=== PATIENT | male | born 1940 | race Two or more races ===

== ENCOUNTER 2017-11-15 12:01 | Day surgery (SDC) | payer MEDICARE ==
[2017-11-13 14:41] VITALS: BMI 31.4
[2017-11-15 12:23] LABS: BASO # 0.02 K/mm3 (0.0-2.0); BASO % 0.3 % (0.0-3.0); EOS # 0.2 (0.0-0.7); EOS % 2.3 % (1.5-5.0); GRAN # 4.37 (1.4-6.5); GRAN % 61.5 % (50.0-68.0); HEMOGLOBIN 16.5 g/dL (14.0-18.0); LYMPH # 1.8 (1.2-3.4); LYMPH % 25.8 % (22.0-35.0); MEAN CELL VOLUME 91.7 fl (80.0-105.0); MEAN CORPUSCULAR HEMOGLOBIN 32.5 pg (25.0-35.0); MEAN CORPUSCULAR HGB CONC 35.4 g/dl (31.0-37.0); MEAN PLATELET VOLUME 9.7 fl (7.0-11.0); MONO # 0.7 (0.1-0.6); MONO % 10.1 % (1.0-6.0); RBC 5.08 10^6/uL (3.5-6.1); WHITE BLOOD COUNT 7.1 10^3/ul (4.5-11.0)
[2017-11-15 12:33] LABS: BLOOD UREA NITROGEN 22 mg/dL (7-21); CALCIUM 10.3 mg/dL (8.4-10.5); GFR AFRICAN-AMERICAN > 60; GFR NON-AFRICAN AMERICAN > 60
[2017-11-15 12:46] LABS: INR 1.14 (0.93-1.08); PARTIAL THROMBOPLASTIN TIME 29.5 Seconds (25.1-36.5); PROTHROMBIN TIME 13.2 SECONDS (9.4-12.5)
[2017-11-15] MEDS ORDERED: Midazolam 2 MG/2 ML VIAL ONE (14:31)
[2017-11-15] MEDS ORDERED: Lidocaine 1% Inj (20ml) ONE (14:32)
[2017-11-15] MEDS ORDERED: Oxycodone/Acetaminophen 5/325 mg Tab PO PRN (15:12)
[2017-11-15] MEDS ORDERED: Sodium Chloride 0.45% 1,000 ML IV SCH (15:15)
--- NOTE | 2017-11-15 15:30 | CT ---
PROCEDURE: CT guided liver biopsy. HISTORY: Hepatitis C. Hemochromatosis. Solitary 6 cm left liver mass. Evaluate for malignancy PHYSICIAN(S): Bernard Barron MD. TECHNIQUE: The relative risks and indications of the procedure were explained to the patient and consent obtained. The patient was placed supine on the CT scanner and preliminary images through the liver obtained. Conscious sedation and monitoring were provided throughout the procedure by a nurse. There is a well-circumscribed 6 cm mass in the lateral segment of the left liver.. A subxyphoid approach was selected and the area prepped and draped in the usual sterile fashion. 1% Xylocaine was used to anesthetize the skin and soft tissues. A 17-gauge guiding needle was advanced into the 6 cm left liver mass. Its position was confirmed with CT. Using coaxial technique, multiple core biopsies were obtained. The postprocedure images show no evidence of significant hemorrhage. IMPRESSION: 1. CT-guided liver biopsy as described above.
[2017-11-15 16:13] VITALS: PULSE 75; RESP 20; TEMP 97.3; O2SAT 93
[2017-11-15 17:31] VITALS: BP 112/73
== END 2017-11-15 17:45 | disposition home or self-care (01) ==
LOC: SDS 12:01
PROVIDERS: ATTEND Radiology Vascular & Interventional Radiology
DX: K74.60 Unspecified cirrhosis of liver (principal); B19.20 Unspecified viral hepatitis C without hepatic coma; E83.119 Hemochromatosis, unspecified; I10 Essential (primary) hypertension; I25.10 Atherosclerotic heart disease of native coronary artery without angina pectoris; I48.91 Unspecified atrial fibrillation; E11.9 Type 2 diabetes mellitus without complications
CPT/HCPCS: 36415; 47000; 77012; 80048; 85025; 85610; 85730; 88307; 99152; J2250; J2405; J3010; J7030

== ENCOUNTER 2018-04-21 13:19 | Inpatient (IN) | payer MEDICARE ==
[2018-03-31 10:05] VITALS: BMI 30.4
[2018-04-21 12:57] LABS: BASO # 0.02 K/mm3 (0.0-2.0); BASO % 0.2 % (0.0-3.0); EOS # 0.1 (0.0-0.7); EOS % 1.1 % (1.5-5.0); GRAN # 6.92 (1.4-6.5); GRAN % 78.4 % (50.0-68.0); HEMOGLOBIN 14.9 g/dL (14.0-18.0); LYMPH # 1.2 (1.2-3.4); LYMPH % 13.3 % (22.0-35.0); MEAN CELL VOLUME 91.6 fl (80.0-105.0); MEAN CORPUSCULAR HGB CONC 34.9 g/dl (31.0-37.0); MEAN PLATELET VOLUME 9.4 fl (7.0-11.0); MONO # 0.6 (0.1-0.6); RBC 4.66 10^6/uL (3.5-6.1); RED CELL DISTRIBUTION WIDTH 13.1 % (11.5-14.5); WHITE BLOOD COUNT 8.8 10^3/ul (4.5-11.0)
[2018-04-21 13:06] LABS: INR 1.37; PARTIAL THROMBOPLASTIN TIME 26.5 Seconds (25.1-36.5); PROTHROMBIN TIME 15.9 SECONDS (9.4-12.5)
[2018-04-21 13:13] LABS: BLOOD UREA NITROGEN 16 mg/dL (7-21); CALCIUM 9.9 mg/dL (8.4-10.5); GFR NON-AFRICAN AMERICAN > 60
[2018-04-21] MEDS ORDERED: Oxycodone/Acetaminophen 5/325 mg Tab PO STA (15:02)
[2018-04-21] MEDS ORDERED: Oxycodone/Acetaminophen 5/325 mg Tab ONE (15:06)
[2018-04-21] MEDS ORDERED: Lidocaine PF 2% (5 ml) Inj (For Cardiac Arrhy) ONE ×2 (15:29→15:55)
[2018-04-21] MEDS ORDERED: Vancomycin 500 mg (Oral/Rectal USE) ONE (15:30)
[2018-04-21] MEDS ORDERED: Midazolam 2 MG/2 ML VIAL ONE ×2 (15:49→16:27)
[2018-04-21] MEDS ORDERED: Oxycodone/Acetaminophen 5/325 mg Tab PO PRN (15:51)
--- NOTE | 2018-04-21 16:05 | CP.PCM.HP ---
History of Present Illness - History of Present Illness History of Present Illness: H&P for Dr. 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 Patient has never received chemo or radiation prior to this admission. Biopsy in March showed high grade neuroendocrine tumor. Currently, patient offers no complaints at this time. Patient denied CP, SOB, n/v/d, abdominal pain, fever, chills, CAH, or dizziness. 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, liver mass, CAD/HI s/p 5 stents, renal cyst, hepatitis C (treated 1997), abdominal hernia, TIA, HTN, HLD, a-fib on eliquis, BPH, and GERD Surg: port placement, liver and lymph node biopsy All: PCN SH: Former smoker, quit 40 yrs ago; Social EtOH use; Denied illicit drug use FHx: HI/CAD Present on Admission - Present on Admission Any Indicators Present on Admission: Yes Review of Systems - Review of Systems All systems: reviewed and no additional remarkable complaints except (12 point ROS reviewed and is negative other than what is stated in HPI.) Past Patient History - CARDIAC Hx Pacemaker: No - NEUROLOGICAL Hx Paralysis: No - HEMATOLOGICAL/ONCOLOGICAL Hx Blood Transfusions: No Hx Blood Transfusion Reaction: No - MUSCULOSKELETAL/RHEUMATOLOGICAL Hx Musculoskeletal Disorders: No - PSYCHIATRIC Hx Emotional Abuse: No Hx Physical Abuse: No Hx Substance Use: No - SURGICAL HISTORY Hx Surgeries: Yes - ANESTHESIA Hx Anesthesia Reactions: No Hx Malignant Hyperthermia: No Meds Allergies/Adverse Reactions: Allergies Allergy/AdvReac Type Severity Reaction Status Date / Time Penicillins Allergy Severe RASH Verified 03/31/18 10:05 Physical Exam - Constitutional Appears: No Acute Distress - Head Exam Head Exam: NORMAL INSPECTION - Eye Exam Eye Exam: Normal appearance Pupil Exam: NORMAL ACCOMODATION - ENT Exam ENT Exam: Normal Exam - Neck Exam Neck exam: Positive for: Normal Inspection - Respiratory Exam Respiratory Exam: Clear to Auscultation Bilateral. absent: Rales, Rhonchi, Wheezes - Cardiovascular Exam Cardiovascular Exam: RRR, +S1, +S2. absent: Diastolic murmur, Gallop, Rubs, Systolic Murmur Additional comments: port on right chest wall, bandages c/d/i, no signs of erythema or discharge - GI/Abdominal Exam GI & Abdominal Exam: Soft. absent: Distended, Guarding, Rebound, Tenderness - Extremities Exam Extremities exam: Positive for: normal inspection - Back Exam Back exam: NORMAL INSPECTION - Neurological Exam Neurological exam: Alert, Oriented x3 - Psychiatric Exam Psychiatric exam: Normal Affect, Normal Mood - Skin Skin Exam: Dry, Intact, Normal Color, Warm Results - Vital Signs Recent Vital Signs: Last Vital Signs Temp 98 F 04/21/18 13:00 Pulse 94 H 04/21/18 13:00 Resp 20 04/21/18 13:00 BP 125/73 04/21/18 13:00 Pulse Ox 98 04/21/18 13:00 - Labs Result Diagrams: 04/22/18 06:00 04/22/18 06:00 Labs: Laboratory Results - last 24 hr 04/21/18 04/21/18 04/21/18 12:40 12:40 12:40 WBC 8.8 RBC 4.66 Hgb 14.9 Hct 42.7 MCV 91.6 MCH 32.0 MCHC 34.9 RDW 13.1 Plt Count 187 MPV 9.4 Gran % 78.4 H Lymph % (Auto) 13.3 L [place] % (Auto) 7.0 H Eos % (Auto) 1.1 L Baso % (Auto) 0.2 Gran # 6.92 H Lymph # (Auto) 1.2 [place] # (Auto) 0.6 Eos # (Auto) 0.1 Baso # (Auto) 0.02 PT 15.9 H INR 1.37 APTT 26.5 Sodium 137 Potassium 4.2 Chloride 101 Carbon Dioxide 27 Anion Gap 13 BUN 16 Creatinine 0.9 Est GFR ( Amer) > 60 Est GFR (Non-Af Amer) > 60 Random Glucose 119 H Calcium 9.9 Assessment & Plan - Assessment and Plan (Free Text) Assessment: 77 M with PMH of 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 Plan: - Chemo regimen - Day 1: Carboplatin, Day 1, 2, 3: Etoposide; with IVF - Premedicate with Decadrone/benadryl/pepcid/zofran - Cont Eliqius for a-fib - Anti-hypertensives continued with holding parameters, SBP < 100 and/or HR < 60 - All other home medications reviewed and continued - GI consulted due to increased colon uptake on PET/CT - Nephro consulted to r/o tumor lysis syndrome - GI/DVT ppx with protonix/eliquis Case reviewed and discussed in detail with Dr. Pfeiffer. Misael Rae DO PGY2
[2018-04-21] MEDS ORDERED: Dexamethasone 20 MG, DiphenhydrAMINE 25 MG, Famotidine 20 MG, Ondansetron 16 MG in Sodi... IV ONE (17:00)
--- NOTE | 2018-04-21 19:52 | VASCULAR ---
PROCEDURE: Ultrasound and fluoroscopic right internal jugular venous access port. CLINICAL HISTORY: Hepatoma. Recently diagnosed neuroendocrine malignancy.Venous port for chemotherapy. PHYSICIAN(S): Bernard Barron M.D. TECHNIQUE: The relative risks and indications of the procedure were explained to the patient and consent obtained. The patient was placed supine on the arteriogram table and the right neck and chest prepped and draped in the usual sterile fashion. Conscious sedation monitoring was provided throughout the procedure by a nurse. Antibiotics were given prior to the procedure. Under direct ultrasound guidance, the right internal jugular vein was punctured with a micro-puncture set. A 0.035 angled Glidewire was advanced into the IVC. A 4 cm incision was made below the right clavicle and the pocket blunted dissected. A 8 Micronesian single-lumen catheter, 24 cm long, was advanced to the SVC/RA junction. The catheter was trimmed and attached to the port. The port aspirates and injects easily. The port was placed in the pocket and closed in 2 layers. An access needle was placed. The patient tolerated the procedure well. IMPRESSION: Ultrasound and fluoroscopically placed right internal jugular venous access port.
[2018-04-22] MEDS ORDERED: Pneumococcal 23-Valent Vaccine IM ONE (04:34)
[2018-04-22 07:19] LABS: ALBUMIN 3.3 g/dL (3.0-4.8); ALT/SGPT 27 U/L (7-56); AST/SGOT 57 U/L (17-59); BLOOD UREA NITROGEN 16 mg/dL (7-21); CALCIUM 9.3 mg/dL (8.4-10.5); GFR NON-AFRICAN AMERICAN > 60
[2018-04-22 07:22] LABS: GRAN # 5.99 (1.4-6.5); GRAN % 94.3 % (50.0-68.0); HEMOGLOBIN 14.1 g/dL (14.0-18.0); LYMPH # 0.3 (1.2-3.4); LYMPH % 5.4 % (22.0-35.0); MEAN CELL VOLUME 91.3 fl (80.0-105.0); MEAN CORPUSCULAR HEMOGLOBIN 31.5 pg (25.0-35.0); MEAN CORPUSCULAR HGB CONC 34.6 g/dl (31.0-37.0); MEAN PLATELET VOLUME 9.4 fl (7.0-11.0); MONO % 0.3 % (1.0-6.0); PLATELET COUNT 175 10^3/uL (120.0-450.0); RBC 4.47 10^6/uL (3.5-6.1); WHITE BLOOD COUNT 6.4 10^3/ul (4.5-11.0)
[2018-04-22 07:25] LABS: INR 1.35; PARTIAL THROMBOPLASTIN TIME 28.3 Seconds (25.1-36.5); PROTHROMBIN TIME 15.6 SECONDS (9.4-12.5)
[2018-04-22 08:27] LABS: LYMPHOCYTE 4 % (22.0-35.0); NEUTROPHIL 96 % (50.0-70.0); PLATELET ESTIMATE NORMAL (NORMAL)
[2018-04-22] MEDS ORDERED: Magnesium Sulfate 2 gm/50 ml 2 GM/50 ML BAG IVPB ONE (09:01)
[2018-04-22 10:41] LABS: URIC ACID 5.4 mg/dL (3.5-8.5)
[2018-04-22] MEDS: Pantoprazole 40 mg EC Tab PO SCH (11:53)
[2018-04-22] MEDS ORDERED: Dexamethasone 20 MG, DiphenhydrAMINE 25 MG, Famotidine 20 MG, Ondansetron 16 MG in Sodi... IV ONE (14:00)
--- NOTE | 2018-04-22 14:18 | CON ---
DATE: 04/22/2018 The patient admitted for Dr. Pfeiffer and Dr. Yasir Briones. REFERRING MD: Yasir Briones MD. REASON FOR CONSULTATION: Evaluation of a patient unknown to me, who presents to receive chemotherapy. There was concern for tumor lysis syndrome and the patient is mildly hypomagnesemic. HISTORY OF PRESENT ILLNESS: The patient is a very pleasant 77-year-old white male with a history of hypertension, history of ASHD, status post PTCA, stents; history of diet-controlled NIDDM; history of hyperlipidemia; history of BPH. The patient was diagnosed this year with a neuroendocrine cancer with diffuse lymphadenopathy. He had a liver mass. The patient comes in to initiate chemotherapy. He had a port placed in his right chest wall yesterday. The patient is starting chemotherapy. The patient received one dose of carboplatin yesterday and he is currently receiving etoposide. We are asked to follow the patient during the hospitalization to monitor for any tumor lysis syndrome. The patient's BUN and creatinine are currently normal. Uric acid level is pending. The patient has a history of atrial fibrillation, on chronic anticoagulation with Eliquis. MEDICATIONS AT HOME: Include that of atenolol, Ecotrin, Eliquis, labetalol, Protonix, Isordil, Zetia, Vasotec, Norvasc, Flomax, p.r.n. Percocet and Ativan. ALLERGIES: THE PATIENT IS ALLERGIC TO PENICILLIN. CURRENT MEDICATIONS IN HOSPITAL: Include that of Diovan, dexamethasone, Ecotrin, Eliquis, etoposide, Flomax, Imdur, Lipitor, Norvasc, p.r.n. Percocet, Protonix, Tenormin, Zestril, Zetia and Zofran p.r.n. SOCIAL HISTORY: No history of cigarette smoking. Past history of alcohol use. FAMILY HISTORY: Positive for coronary artery disease. REVIEW OF SYSTEMS: Ten plus systems reviewed with the patient. All negative except for what is noted above. General: The patient states the appetite and weight have been stable. ENT: Denies any hearing or visual problems. Pulmonary: No shortness of breath. No history of COPD. No asthma, bronchitis or emphysema. Cardiac: History of ASHD with atrial fibrillation as noted above, currently not active. GI: History of increased abdominal pain secondary to lymphadenopathy and abdominal distention. : No history of chronic kidney disease. Endocrine: History of diabetes. Apparently, diet controlled. Musculoskeletal: No issues. Neuro: No past history of CVA, TIA, seizures or syncope. Heme/onc: History of neuroendocrine cancer with positive lymph node biopsy as noted above. Psychiatric history is negative. PHYSICAL EXAMINATION: GENERAL: The patient is currently seen on 3R. He is sitting up in bed, in no acute distress. The patient is receiving an IV magnesium rider. VITAL SIGNS: Blood pressure 128/87, temperature 98, respiratory rate 20 with a pulse of 92. HEENT: Exam shows him to be normocephalic, atraumatic. Conjunctivae are pink. Sclerae are nonicteric. Pupils equal, reactive to light and accommodation. Extraocular muscles are intact. NECK: Supple. No neck vein distention. No thyromegaly noted. No bruits. CHEST: Clear to auscultation and percussion. No rales, rhonchi or wheezing. CARDIOVASCULAR: Shows a regular rate and rhythm without murmurs, rubs or gallops. Positive newly placed port in his right chest wall. ABDOMEN: Distended. No tenderness on palpation. No organomegaly noted. No rebound or guarding noted. BACK: No CVAT. No spinal tenderness. EXTREMITIES: Show no lower extremity cyanosis, clubbing or edema. Distal lower extremity pulses are 2+ bilateral. NEURO: Shows him to be alert and oriented x3 with no gross focal motor or sensory deficits noted. LABORATORY DATA AND IMAGING: White blood cell count 6.4 with a hemoglobin of 40.1, platelet count of 175,000. Coags: PT of 15.6 with a PTT of 28.3. Chemistry showed normal electrolytes. BUN 16 with a creatinine of 0.7. Glucose is 161. Uric acid level was 5.4, which is normal. Calcium 9.3, phosphorus 3.2 with magnesium of 1.6. LDH is elevated at 816. Albumin is 3.3. ASSESSMENT: 1. Neuroendocrine cancer. Positive lymph node biopsy with diffuse extensive intra-abdominal lymphadenopathy. The patient is initiating chemotherapy. Port was placed yesterday. The patient is status post one dose of carboplatin yesterday and he is receiving etoposide today and tomorrow. The patient's uric acid level at present is normal. The patient may continue on IV fluid hydration as necessary. We will continue to monitor his uric acid level and if necessary start the patient on allopurinol to prevent tumor lysis syndrome. We will obtain a urinalysis to check his urine pH today. 2. History of hypertension. Blood pressure is controlled on present medical therapy. 3. History of atherosclerotic heart disease, status post percutaneous transluminal coronary angioplasty and stents. History of atrial fibrillation, on chronic anticoagulation. 4. History of noninsulin-dependent diabetes mellitus, diet controlled. 5. History of hyperlipidemia, controlled with diet and medical therapy. 6. History of benign prostatic hypertrophy, on Flomax therapy. 7. Borderline to mild hypomagnesemia. The patient received magnesium supplementation today. PLAN: 1. Agree with mag stewart. 2. Continue to monitor uric acid over the next several days. 3. P.r.n. IV fluid hydration. 4. P.r.n. initiate allopurinol therapy. 5. We will discuss with Dr. Margarette Briones. 6. Case discussed with staff on . Thank you for letting me partake and share in the care of your patient. Tacho Alvarenga MD
--- NOTE | 2018-04-22 14:19 | CP.PCM.PN ---
Subjective - Date & Time of Evaluation Date of Evaluation: 04/22/18 Time of Evaluation: 14:15 - Subjective Subjective: Heme/Onc Progress Note for Dr. Pfeiffer -- Misael Rae DO PGY2 Patient seen and examined at bedside. No acute overnight events. Patient states that pain is minimal. Patient states that first day of chemotherapy with Etoposide and Carboplatin went well yesterday. Patient states that he would prefer to take his home statin medication rather than Lipitor from hospital. Patient denies CP, SOB, n/v/d, abdominal pain, fever, chills, CHA, or dizziness. Objective - Vital Signs/Intake and Output Vital Signs (last 24 hours): Temp Pulse Resp BP Pulse Ox 98 F 92 H 20 128/87 97 04/22/18 08:31 04/22/18 08:31 04/22/18 08:31 04/22/18 11:53 04/22/18 08:31 Intake and Output: 04/22/18 04/22/18 06:59 18:59 Intake Total 2400 Output Total 2220 Balance 180 - Medications Medications: Current Medications Amlodipine Besylate (Norvasc) 10 mg PO QAM [facility] Apixaban (Eliquis) 5 mg PO BID [facility] PRN Reason: Protocol Last Admin: 04/22/18 11:52 Dose: 5 mg Aspirin (Ecotrin) 81 mg PO QAM [facility] Last Admin: 04/22/18 11:51 Dose: 81 mg Atenolol (Tenormin) 50 mg PO QPM [facility] Ezetimibe (Zetia) 10 mg PO QAM [facility] Last Admin: 04/22/18 11:54 Dose: 10 mg Home Med (Home Med) 1 unit PO DAILY [facility] Etoposide 150 mg/ Sodium (Chloride) 507.5 mls @ 169.167 mls/hr IV ONCE ONE Stop: 04/22/18 16:59 Dexamethasone 20 mg/Diphenhydramine HCl 25 mg/Famotidine 20 mg/ Ondansetron HCl 16 mg/ Sodium Chloride 65.5 mls @ 196.5 mls/hr IV ONCE ONE Stop: 04/22/18 14:19 Isosorbide Mononitrate (Imdur Er) 30 mg PO QAM [facility] Last Admin: 04/22/18 11:53 Dose: 30 mg Lisinopril (Zestril) 5 mg PO QPM [facility] Last Admin: 04/21/18 20:45 Dose: Not Given Lorazepam (Ativan) 1 mg PO Q4H PRN; Protocol PRN Reason: Anxiety Ondansetron HCl (Zofran Inj) 4 mg IVP Q6H PRN PRN Reason: Nausea/Vomiting Oxycodone/Acetaminophen (Percocet 5/325 Mg Tab) 1 tab PO Q4H PRN PRN Reason: Pain, severe (8-10) Stop: 04/24/18 15:52 Pantoprazole Sodium (Protonix Ec Tab) 40 mg PO QAM [facility] Last Admin: 04/22/18 11:53 Dose: 40 mg Tamsulosin HCl (Flomax) 0.4 mg PO QPM [facility] - Labs Labs: 04/22/18 06:00 04/22/18 06:00 PT 15.6 SECONDS (9.4-12.5) H 04/22/18 06:00 INR 1.35 04/22/18 06:00 APTT 28.3 Seconds (25.1-36.5) 04/22/18 06:00 - Constitutional Appears: No Acute Distress - Head Exam Head Exam: NORMAL INSPECTION - Eye Exam Eye Exam: Normal appearance - ENT Exam ENT Exam: Mucous Membranes Moist - Neck Exam Neck Exam: Normal Inspection - Respiratory Exam Respiratory Exam: Clear to Ausculation Bilateral. absent: Rales, Rhonchi, Wheezes - Cardiovascular Exam Cardiovascular Exam: RRR, +S1, +S2. absent: Gallop, Rubs, Murmur Additional comments: port on right chest well, bandages c/d/i, no signs of erythema or discharge - GI/Abdominal Exam GI & Abdominal Exam: Soft. 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 Plan: - Day 2 of chemotherapy with Etoposide + IVF - Premedicate with Decadrone/benadryl/pepcid/zofran - Home med, Livalo sent to pharmacy to be verified, will cont 1 mg PO daily - Cont Eliqius for a-fib - Anti-hypertensives continued with holding parameters, SBP < 100 and/or HR < 60 - All other home medications reviewed and continued - GI consulted due to increased colon uptake on PET/CT - Nephro consulted to r/o tumor lysis syndrome - GI/DVT ppx with protonix/eliquis Case reviewed and discussed in detail with Dr. Pfeiffer. Misael Rae DO PGY2
[2018-04-22] MEDS ORDERED: Dextrose 5%/0.45% NS 1,000 ML IV SCH (20:45)
[2018-04-22 22:47] LABS: URINE BILIRUBIN NEGATIVE (NEGATIVE); URINE BLOOD MODERATE (NEGATIVE); URINE GLUCOSE (UA) NEGATIVE (NEGATIVE); URINE LEUKOCYTE ESTERASE NEGATIVE Leu/uL (NEGATIVE); URINE PROTEIN NEGATIVE mg/dL (<30 mg/dL); URINE UROBILINOGEN 0.2 E.U./dL (<1 E.U./dL)
[2018-04-22 22:48] LABS: URINE APPEARANCE CLEAR (CLEAR); URINE COLOR DARK YELLOW (YELLOW)
[2018-04-22 23:07] LABS: URINE WBC 0 - 2 /hpf (0-6)
[2018-04-22 23:08] LABS: URINE BACTERIA MOD (NEG)
[2018-04-23 07:08] LABS: GRAN # 12.65 (1.4-6.5); GRAN % 94.7 % (50.0-68.0); HEMOGLOBIN 13.8 g/dL (14.0-18.0); LYMPH # 0.5 (1.2-3.4); LYMPH % 3.8 % (22.0-35.0); MEAN CELL VOLUME 91.1 fl (80.0-105.0); MEAN CORPUSCULAR HEMOGLOBIN 31.7 pg (25.0-35.0); MEAN CORPUSCULAR HGB CONC 34.8 g/dl (31.0-37.0); MEAN PLATELET VOLUME 9.4 fl (7.0-11.0); MONO # 0.2 (0.1-0.6); MONO % 1.5 % (1.0-6.0); RBC 4.36 10^6/uL (3.5-6.1); WHITE BLOOD COUNT 13.4 10^3/ul (4.5-11.0)
[2018-04-23 07:31] LABS: ALBUMIN 3.2 g/dL (3.0-4.8); ALT/SGPT 25 U/L (7-56); AST/SGOT 48 U/L (17-59); BLOOD UREA NITROGEN 22 mg/dL (7-21); CALCIUM 9.5 mg/dL (8.4-10.5); GFR NON-AFRICAN AMERICAN > 60; URIC ACID 5.7 mg/dL (3.5-8.5)
[2018-04-23 08:35] VITALS: RESP 20
--- NOTE | 2018-04-23 08:42 | CON ---
DATE: 04/22/2018 REASON FOR CONSULTATION: Abnormal PET scan. HISTORY OF PRESENT ILLNESS: This is a 77-year-old patient with past medical history of high-grade extensive neuroendocrine tumor, small cell carcinoma of the lung, has hepatic lesions, coronary artery disease, status post stent placement, history of hep C, C. diff, had a status post port placement and for receiving chemotherapy. The patient did have PET scan done which showed some increased activity in the right colon; with some adjacent inflammatory changes. GI consult was requested to evaluate this on examination. The patient denies any abdominal pain. Tolerating the diet. OTHER PAST MEDICAL HISTORY: As above. The patient has history of atrial fibrillation, on Eliquis; TIA; hypertension; dyslipidemia; enlarged prostate. PAST SURGICAL HISTORY: Significant for lymph node biopsy and stent placement. ALLERGIES: PENICILLIN. SOCIAL HISTORY: Ex-smoker. Social alcohol use. FAMILY HISTORY: Positive for coronary artery disease. PHYSICAL EXAMINATION: GENERAL: The patient is lying on the bed, not in acute distress. VITAL SIGNS: Pulse 96 per minute, temperature is 98.8, blood pressure is 117/71, respirations 20, O2 saturation is 96. HEENT: Atraumatic and anicteric. NECK: Supple. HEART: S1 and S2 heard. LUNGS: Bilateral air entry present. ABDOMEN: Soft. There was tenderness present to the epigastric area. There are no mass palpable. No tenderness. EXTREMITIES: No cyanosis. No clubbing. NEUROLOGIC: Alert and oriented. Moves all the extremities. LABORATORY DATA: Hemoglobin 14.1, hematocrit 40.8, WBC 6.4, platelets 175. Chemistry is essentially unremarkable except blood glucose mildly elevated at 161. IMPRESSION AND PLAN: Metastatic high-grade neuroendocrine tumor, had a recent PET scan, showed some increased focal uptake in the right colon with some inflammatory changes. The patient is also on chronic pain medication. The patient is on chemotherapy. We will continue to closely monitor the patient. Should the patient develop any abdominal pain and signs, we will consider repeating the CT scan. The patient would benefit from elective colonoscopy. His other comorbidities include coronary artery disease, hypertension, history of atrial fibrillation. Thank you very much for allowing us to participate in the care of the patient. Faye Montes MD
[2018-04-23] MEDS: Pantoprazole 40 mg EC Tab PO SCH (11:08)
[2018-04-23] MEDS: LIVALO 1 MG PO SCH (11:09)
--- NOTE | 2018-04-23 11:11 | CP.PCM.PN ---
<Que Marcus - Last Filed: 04/23/18 16:33> Subjective - Date & Time of Evaluation Date of Evaluation: 04/23/18 Time of Evaluation: 11:11 - Subjective Subjective: GI Progress Note for Dr. Montes's Service- Arcadio, PGY2 Patient seen and assessed at bedside. No acute events overnight noted. Patient offers no complaints outside of intermittent LLQ abdominal pain related to positional changes in bed. Patient otherwise currently denies any fevers, chills , chest pain, SOB, abdominal pain, N/V/D/C, changes in urine output or any skin changes. Objective - Vital Signs/Intake and Output Vital Signs (last 24 hours): Temp Pulse Resp BP Pulse Ox 97.8 F 86 20 111/76 96 04/23/18 06:00 04/23/18 06:00 04/23/18 06:00 04/23/18 06:00 04/23/18 06:00 Intake and Output: 04/23/18 04/23/18 06:59 18:59 Intake Total 2080 Output Total 1370 Balance 710 - Medications Medications: Current Medications Amlodipine Besylate (Norvasc) 10 mg PO QAM [facility] Apixaban (Eliquis) 5 mg PO BID [facility] PRN Reason: Protocol Last Admin: 04/22/18 18:33 Dose: 5 mg Aspirin (Ecotrin) 81 mg PO QAM [facility] Last Admin: 04/22/18 11:51 Dose: 81 mg Atenolol (Tenormin) 50 mg PO QPM [facility] Last Admin: 04/22/18 18:34 Dose: 50 mg Ezetimibe (Zetia) 10 mg PO QAM [facility] Last Admin: 04/22/18 11:54 Dose: 10 mg Home Med (Home Med) 1 unit PO DAILY [facility] Dextrose/Sodium Chloride (Dextrose 5%/0.45% Ns 1000 Ml) 1,000 mls @ 166 mls/hr IV .Q6H2M [facility] Stop: 04/24/18 02:46 Etoposide 150 mg/ Sodium (Chloride) 507.5 mls @ 169.167 mls/hr IV ONCE ONE Stop: 04/23/18 22:59 Dexamethasone 20 mg/Diphenhydramine HCl 25 mg/Famotidine 20 mg/ Ondansetron HCl 16 mg/ Sodium Chloride 65.5 mls @ 196.5 mls/hr IV ONCE ONE Stop: 04/23/18 20:19 Isosorbide [facility]on[facility] ([facility]ur Er) [facility] [place] Last Admin: 04/22/18 11:53 Dose: 30 mg Lisinopril (Zestril) 5 mg PO QPM [facility] Last Admin: 04/22/18 18:34 Dose: 5 mg Lorazepam (Ativan) 1 mg PO Q4H PRN; Protocol PRN Reason: Anxiety Ondansetron HCl (Zofran Inj) 4 mg IVP Q6H PRN PRN Reason: Nausea/Vomiting Oxycodone/Acetaminophen (Percocet 5/325 Mg Tab) 1 tab PO Q4H PRN PRN Reason: Pain, severe (8-10) Stop: 04/24/18 15:52 Last Admin: 04/22/18 22:16 Dose: 1 tab Pantoprazole Sodium (Protonix Ec Tab) [facility] [place] Last Admin: 04/22/18 11:53 Dose: 40 mg Tamsulosin HCl (Flomax) 0.4 mg PO QPM [facility] Last Admin: 04/22/18 18:34 Dose: 0.4 mg - Labs Labs: 04/23/18 06:00 04/23/18 06:00 PT 15.6 SECONDS (9.4-12.5) H 04/22/18 06:00 INR 1.35 04/22/18 06:00 APTT 28.3 Seconds (25.1-36.5) 04/22/18 06:00 - Constitutional Appears: Non-toxic, No Acute Distress - Head Exam Head Exam: ATRAUMATIC, NORMOCEPHALIC - Eye Exam Eye Exam: EOMI - Neck Exam Neck Exam: Full ROM - Respiratory Exam Respiratory Exam: NORMAL BREATHING PATTERN. absent: Accessory Muscle Use, Respiratory Distress - Cardiovascular Exam Cardiovascular Exam: +S1, +S2 - GI/Abdominal Exam GI & Abdominal Exam: Soft, Normal Bowel Sounds. 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 Plan: -PET/CT reviewed and showed uptake in the right colon with adjacent inflammatory changes -Heart Healthy Sodium Restricted Diet -Continue Zofran PRN for N/V -Continue daily PPI -DVT Prophylaxis GI Disposition: Patient will benefit from elective outpatient colonoscopy. No acute interventions planned from GI at this time. Patient seen and case discussed with attending, Dr. Montes. <Faye Montes V - Last Filed: 04/24/18 23:26> Objective - Vital Signs/Intake and Output Vital Signs (last 24 hours): Temp Pulse Resp BP Pulse Ox 98 F 94 H 20 124/87 96 04/24/18 06:00 04/24/18 06:00 04/24/18 06:00 04/24/18 11:02 04/24/18 06:00 Intake and Output: 04/24/18 04/25/18 18:59 06:59 Intake Total 1590 Output Total 0 Balance 1590 - Labs Labs: 04/24/18 06:20 04/24/18 06:20 PT 15.6 SECONDS (9.4-12.5) H 04/22/18 06:00 INR 1.35 04/22/18 06:00 APTT 28.3 Seconds (25.1-36.5) 04/22/18 06:00 Attending/Attestation - Attestation I have personally seen and examined this patient.: Yes I have fully participated in the care of the patient.: Yes I have reviewed all pertinent clinical information, including history, physical exam and plan: Yes Notes (Text): This is an addendum to GI followup report dictated by the Film Mounter. The patient was seen and evaluated earlier. Medical records, lab studies, imagings were reviewed. Last 24 hours events reviewed. Agreed with the above treatment plan as outlined in Film Mounter 's notes with the addition of the following This patient with an extensive neuro endocrine tumor metastasis Had a PET scan done which showed increased activity in the right colon However on examination did not have any significant tenderness Patient did receive chemotherapy Recommendation to follow up clinically Recommend repeat CT of the abdomen and pelvis if there any right side pain 04/24/18 23:23
--- NOTE | 2018-04-23 13:22 | CP.PCM.PN ---
Subjective - Date & Time of Evaluation Date of Evaluation: 04/23/18 Time of Evaluation: 13:21 - Subjective Subjective: Heme/Onc Progress Note for Dr. Pfeiffer -- Misael Rae DO PGY2 Patient seen and examined at bedside. Patient states he occasionally gets LLQ pain when turns to certain positions. Patient states that this has been ongoing for sometime, prior CT scans were reviewed which showed liver CA and retroperitoneal nodes. Patient states that pain is alleviated with medications and lying on his right side. Patient states he tolerated chemotherapy well. Patient denies CP, SOB, n/v/d, abdominal pain, fever, chills, CHA, or dizziness. Objective - Vital Signs/Intake and Output Vital Signs (last 24 hours): Temp Pulse Resp BP Pulse Ox 97.8 F 86 20 114/78 96 04/23/18 06:00 04/23/18 06:00 04/23/18 06:00 04/23/18 11:07 04/23/18 06:00 Intake and Output: 04/23/18 04/23/18 06:59 18:59 Intake Total 2080 Output Total 1370 Balance 710 - Medications Medications: Current Medications Amlodipine Besylate (Norvasc) 10 mg PO QAM [facility] Last Admin: 04/23/18 11:07 Dose: 10 mg Apixaban (Eliquis) 5 mg PO BID [facility] PRN Reason: Protocol Last Admin: 04/23/18 11:07 Dose: 5 mg Aspirin (Ecotrin) 81 mg PO QAM [facility] Last Admin: 04/23/18 11:08 Dose: 81 mg Atenolol (Tenormin) 50 mg PO QPM [facility] Last Admin: 04/22/18 18:34 Dose: 50 mg Ezetimibe (Zetia) 10 mg PO QAM [facility] Last Admin: 04/23/18 11:08 Dose: 10 mg Home Med (Home Med) 1 unit PO DAILY [facility] Last Admin: 04/23/18 11:09 Dose: 1 unit Dextrose/Sodium Chloride (Dextrose 5%/0.45% Ns 1000 Ml) 1,000 mls @ 166 mls/hr IV .Q6H2M [facility] Stop: 04/24/18 02:46 Etoposide 150 mg/ Sodium (Chloride) 507.5 mls @ 169.167 mls/hr IV ONCE ONE Stop: 04/23/18 22:59 Dexamethasone 20 mg/Diphenhydramine HCl 25 mg/Famotidine 20 mg/ Ondansetron HCl 16 mg/ Sodium Chloride 65.5 mls @ 196.5 mls/hr IV ONCE ONE Stop: 04/23/18 20:19 Isosorbide Mononitrate (Imdur Er) 30 mg PO QAM [facility] Last Admin: 04/23/18 11:08 Dose: 30 mg Lisinopril (Zestril) 5 mg PO QPM [facility] Last Admin: 04/22/18 18:34 Dose: 5 mg Lorazepam (Ativan) 1 mg PO Q4H PRN; Protocol PRN Reason: Anxiety Ondansetron HCl (Zofran Inj) 4 mg IVP Q6H PRN PRN Reason: Nausea/Vomiting Oxycodone/Acetaminophen (Percocet 5/325 Mg Tab) 1 tab PO Q4H PRN PRN Reason: Pain, severe (8-10) Stop: 04/24/18 15:52 Last Admin: 04/22/18 22:16 Dose: 1 tab Pantoprazole Sodium (Protonix Ec Tab) [facility] [place] [facility] Admin: 04/23/18 11:08 Dose: 40 mg Tamsulosin HCl (Flomax) 0.4 mg PO QPM [facility] Last Admin: 04/22/18 18:34 Dose: 0.4 mg - Labs Labs: 04/23/18 06:00 04/23/18 06:00 PT 15.6 SECONDS (9.4-12.5) H 04/22/18 06:00 INR 1.35 04/22/18 06:00 APTT 28.3 Seconds (25.1-36.5) 04/22/18 06:00 - Constitutional Appears: No Acute Distress - Head Exam Head Exam: NORMAL INSPECTION - Eye Exam Eye Exam: Normal appearance - ENT Exam ENT Exam: Mucous Membranes Moist - Neck Exam Neck Exam: Normal Inspection - Respiratory Exam Respiratory Exam: Clear to Ausculation Bilateral. absent: Rales, Rhonchi, Wheezes - Cardiovascular Exam Cardiovascular Exam: RRR, +S1, +S2. absent: Gallop, Rubs, Murmur - GI/Abdominal Exam GI & Abdominal Exam: Soft. 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 Plan: - Day 3 of chemotherapy with Etoposide + IVF - Premedicate with Decadrone/benadryl/pepcid/zofran - Cont Eliqius for a-fib - Anti-hypertensives continued with holding parameters, SBP < 100 and/or HR < 60 - All other home medications reviewed and continued - GI consulted due to increased colon uptake on PET/CT - recs outpatient colonscopy - Nephro consulted to r/o tumor lysis syndrome - monitor uric acid, possible allopurinol if needed - GI/DVT ppx with protonix/eliquis Case reviewed and discussed in detail with Dr. Pfeiffer. Misael Rae, DO PGY2
--- NOTE | 2018-04-23 15:04 | PN ---
DATE: 04/23/2018 SUBJECTIVE: The patient is seen sitting in bed. Multiple family members are at bedside. He is awake. He is alert. He is comfortable. He denies any pain. He denies any shortness of breath. He denies any nausea or vomiting. He denies any diarrhea. PHYSICAL EXAMINATION: GENERAL: Elderly male, sitting in bed. VITAL SIGNS: Blood pressure 114/78, heart rate 86, respiratory rate 20, temperature 97.8. HEENT: Normocephalic, atraumatic, positive pallor. NECK: Supple, no JVD. LUNGS: Bilateral equal air entry, bilateral equal expansion. CARDIAC: S1 and S2, regular rate and rhythm, no murmur, no rub. ABDOMEN: Obese, distended, soft, nontender, bowel sounds present. EXTREMITIES: No lower extremity edema. INTAKE AND OUTPUT: 2400/2200. LABORATORY DATA: WBC 13.4, hemoglobin 13.8, hematocrit 39.7, platelets 181. Sodium 134, potassium 4.3, chloride 103, CO2 of 22, BUN 22, creatinine 0.7, glucose 184, calcium 9.5, phosphorus 3.6, magnesium 2, uric acid 5.7, albumin 3.2. Urinalysis: Dark yellow, clear, pH 6, specific gravity 1.020, protein negative, moderate blood, leukocyte esterase negative. CURRENT MEDICATIONS: Ativan, D5 half-normal saline, Ecotrin, Eliquis 5 b.i.d., etoposide, Flomax 0.4, Imdur 30, amlodipine 10, Percocet, Protonix, Tenormin, Zestril 5, Zetia, Zofran. ASSESSMENT: 1. Neuroendocrine cancer. Positive lymph node biopsy with diffuse extensive intra-abdominal lymphadenopathy. The patient to start chemotherapy. 2. History of hypertension. 3. Coronary artery disease. 4. Noninsulin-dependent diabetes mellitus. 5. Hyperlipidemia. 6. Benign prostatic hypertrophy. 7. Hypomagnesemia, resolved. PLAN: 1. Continue hydration prior to chemotherapy. 2. Can start allopurinol once chemotherapy is started. 3. Avoid nephrotoxins. 4. We will continue to monitor with you. Shira Hurd MD
[2018-04-23] MEDS ORDERED: Dexamethasone 20 MG, DiphenhydrAMINE 25 MG, Famotidine 20 MG, Ondansetron 16 MG in Sodi... IV ONE (20:00)
[2018-04-23] MEDS ORDERED: Dextrose 5%/0.45% NS 1,000 ML IV SCH ×2 (20:45→23:45)
[2018-04-24 07:07] LABS: GRAN # 12.02 (1.4-6.5); GRAN % 95.3 % (50.0-68.0); HEMOGLOBIN 14.2 g/dL (14.0-18.0); LYMPH # 0.4 (1.2-3.4); LYMPH % 3.2 % (22.0-35.0); MEAN CELL VOLUME 90.9 fl (80.0-105.0); MEAN CORPUSCULAR HEMOGLOBIN 31.3 pg (25.0-35.0); MEAN CORPUSCULAR HGB CONC 34.5 g/dl (31.0-37.0); MONO # 0.2 (0.1-0.6); MONO % 1.5 % (1.0-6.0); RBC 4.53 10^6/uL (3.5-6.1); WHITE BLOOD COUNT 12.6 10^3/ul (4.5-11.0)
[2018-04-24 07:09] LABS: ALBUMIN 3.2 g/dL (3.0-4.8); ALT/SGPT 36 U/L (7-56); AST/SGOT 51 U/L (17-59); BLOOD UREA NITROGEN 25 mg/dL (7-21); CALCIUM 9.4 mg/dL (8.4-10.5); GFR NON-AFRICAN AMERICAN > 60; URIC ACID 5.5 mg/dL (3.5-8.5)
[2018-04-24] MEDS ORDERED: Sodium Chloride 0.9% 1,000 ML IV SCH ×2 (07:45→10:00)
[2018-04-24 07:54] VITALS: BP 124/87; PULSE 94; TEMP 98; O2SAT 96
--- NOTE | 2018-04-24 08:17 | CP.PCM.PN ---
<Que Marcus - Last Filed: 04/24/18 10:44> Subjective - Date & Time of Evaluation Date of Evaluation: 04/24/18 Time of Evaluation: 08:17 - Subjective Subjective: GI Progress Note for Dr. Mnotes's Service- Arcadio, PGY2 Patient seen and assessed at bedside. No acute events overnight noted. Patient denies any new abdominal tenderness at this time and reports that he is tolerating his diet well. Patient otherwise currently denies any fevers, chills , chest pain, SOB, abdominal pain, N/V/D/C, changes in urine output or any skin changes. Objective - Vital Signs/Intake and Output Vital Signs (last 24 hours): Temp Pulse Resp BP Pulse Ox 98 F 94 H 20 124/87 96 04/24/18 06:00 04/24/18 06:00 04/24/18 06:00 04/24/18 06:00 04/24/18 06:00 Intake and Output: 04/24/18 04/24/18 06:59 18:59 Intake Total 1700 Output Total 2250 Balance -550 - Medications Medications: Current Medications [facility]) [facility] [place] Last Admin: 04/23/18 11:07 Dose: 10 mg Apixaban (Eliquis) 5 mg PO BID [facility] PRN Reason: Protocol Last Admin: 04/23/18 18:16 Dose: 5 mg Aspirin (Ecotrin) [facility] [place] Last Admin: 04/23/18 11:08 Dose: 81 mg Atenolol (Tenormin) 50 mg PO QPM [facility] Last Admin: 04/23/18 18:14 Dose: 50 mg Ezetimibe (Zetia) 10 mg PO QAM [facility] Last Admin: 04/23/18 11:08 Dose: 10 mg Home Med (Home Med) 1 unit PO DAILY [facility] Last Admin: 04/23/18 11:09 Dose: 1 unit Sodium Chloride (Sodium Chloride 0.9%) 1,000 mls @ 100 mls/hr IV .Q10H [facility] Isosorbide Mononitrate (Imdur Er) [facility] [place] Last Admin: 04/23/18 11:08 Dose: 30 mg Lisinopril (Zestril) 5 mg PO QPM [facility] Last Admin: 04/23/18 18:17 Dose: 5 mg Lorazepam (Ativan) 1 mg PO Q4H PRN; Protocol PRN Reason: Anxiety Ondansetron HCl (Zofran Inj) 4 mg IVP Q6H PRN PRN Reason: Nausea/Vomiting Oxycodone/Acetaminophen (Percocet 5/325 Mg Tab) 1 tab PO Q4H PRN PRN Reason: Pain, severe (8-10) Stop: 04/24/18 15:52 Last Admin: 04/22/18 22:16 Dose: 1 tab Pantoprazole Sodium (Protonix Ec Tab) 40 mg PO QAM [facility] Last Admin: 04/23/18 11:08 Dose: 40 mg Tamsulosin HCl (Flomax) 0.4 mg PO QPM [facility] Last Admin: 04/23/18 18:14 Dose: 0.4 mg - Labs Labs: 04/24/18 06:20 04/24/18 06:20 PT 15.6 SECONDS (9.4-12.5) H 04/22/18 06:00 INR 1.35 04/22/18 06:00 APTT 28.3 Seconds (25.1-36.5) 04/22/18 06:00 - Constitutional Appears: Non-toxic, No Acute Distress - Head Exam Head Exam: ATRAUMATIC, NORMOCEPHALIC - Eye Exam Eye Exam: EOMI - Neck Exam Neck Exam: Full ROM - Respiratory Exam Respiratory Exam: NORMAL BREATHING PATTERN. absent: Accessory Muscle Use, Respiratory Distress - Cardiovascular Exam Cardiovascular Exam: +S1, +S2 - GI/Abdominal Exam GI & Abdominal Exam: Soft, Normal Bowel Sounds. 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 Plan: -PET/CT reviewed and showed uptake in the right colon with adjacent inflammatory changes -Heart Healthy Sodium Restricted Diet -Ensure Clear supplementation twice per day -Continue Zofran PRN for N/V -Continue daily PPI -DVT Prophylaxis GI Disposition: Patient will benefit from elective outpatient colonoscopy. No acute interventions planned from GI at this time. Should patient develop new right sided abdominal tenderness, can consider getting CT Abdomen/Pelvis. Patient seen and case discussed with attending, Dr. Montes. <Faye Montes V - Last Filed: 04/24/18 23:28> Objective - Vital Signs/Intake and Output Vital Signs (last 24 hours): Temp Pulse Resp BP Pulse Ox 98 F 94 H 20 124/87 96 04/24/18 06:00 04/24/18 06:00 04/24/18 06:00 04/24/18 11:02 04/24/18 06:00 Intake and Output: 04/24/18 04/25/18 18:59 06:59 Intake Total 1590 Output Total 0 Balance 1590 - Labs Labs: 04/24/18 06:20 04/24/18 06:20 PT 15.6 SECONDS (9.4-12.5) H 04/22/18 06:00 INR 1.35 04/22/18 06:00 APTT 28.3 Seconds (25.1-36.5) 04/22/18 06:00 Attending/Attestation - Attestation I have personally seen and examined this patient.: Yes I have fully participated in the care of the patient.: Yes I have reviewed all pertinent clinical information, including history, physical exam and plan: Yes Notes (Text): This is an addendum to GI followup report dictated by the Photostat Operator. The patient was seen and evaluated earlier. Medical records, lab studies, imagings were reviewed. Last 24 hours events reviewed. Agreed with the above treatment plan as outlined in Photostat Operator 's notes with the addition of the following Patient tolerated chemo No right side abdominal pain Continue clinical followup If patient should develop any abdominal pain CT abdomen and pelvis to further evaluate 04/24/18 23:26
--- NOTE | 2018-04-24 09:59 | CP.PCM.PN ---
Subjective - Date & Time of Evaluation Date of Evaluation: 04/24/18 Time of Evaluation: 09:55 - Subjective Subjective: Heme/Onc Progress Note for Dr. Pfeiffer -- Misael aRe DO PGY2 Patient seen and examined at bedside. No acute overnight events. Patient states that abdominal pain is tolerable and did not require medications. Patient denied CP, SOB, n/v/d, fever, chills, CHA, or dizziness. Objective - Vital Signs/Intake and Output Vital Signs (last 24 hours): Temp Pulse Resp BP Pulse Ox 98 F 94 H 20 124/87 96 04/24/18 06:00 04/24/18 06:00 04/24/18 06:00 04/24/18 06:00 04/24/18 06:00 Intake and Output: 04/24/18 04/24/18 06:59 18:59 Intake Total 1700 Output Total 2250 Balance -550 - Medications Medications: Current Medications [facility]) [facility] [place] Last Admin: 04/23/18 11:07 Dose: 10 mg Apixaban (Eliquis) 5 mg PO BID [facility] PRN Reason: Protocol Last Admin: 04/23/18 18:16 Dose: 5 mg Aspirin (Ecotrin) 81 mg PO QAM [facility] Last Admin: 04/23/18 11:08 Dose: 81 mg Atenolol (Tenormin) 50 mg PO QPM [facility] Last Admin: 04/23/18 18:14 Dose: 50 mg Ezetimibe (Zetia) [facility] [place] Last Admin: 04/23/18 11:08 Dose: 10 mg Home Med (Home Med) 1 unit PO DAILY [facility] Last Admin: 04/23/18 11:09 Dose: 1 unit Sodium Chloride (Sodium Chloride 0.9%) 1,000 mls @ 75 mls/hr IV .[id number] [facility] Isosorbide Mononitrate (Imdur Er) [facility] [place] Last Admin: 04/23/18 11:08 Dose: 30 mg Lisinopril (Zestril) 5 mg PO QPM [facility] Last Admin: 04/23/18 18:17 Dose: 5 mg Lorazepam (Ativan) 1 mg PO Q4H PRN; Protocol PRN Reason: Anxiety Ondansetron HCl (Zofran Inj) 4 mg IVP Q6H PRN PRN Reason: Nausea/Vomiting Oxycodone/Acetaminophen (Percocet 5/325 Mg Tab) 1 tab PO Q4H PRN PRN Reason: Pain, severe (8-10) Stop: 04/24/18 15:52 Last Admin: 04/22/18 22:16 Dose: 1 tab Pantoprazole Sodium (Protonix Ec Tab) 40 mg PO QAM [facility] Last Admin: 04/23/18 11:08 Dose: 40 mg Tamsulosin HCl (Flomax) 0.4 mg PO QPM [facility] Last Admin: 04/23/18 18:14 Dose: 0.4 mg - Labs Labs: 04/24/18 06:20 04/24/18 06:20 PT 15.6 SECONDS (9.4-12.5) H 04/22/18 06:00 INR 1.35 04/22/18 06:00 APTT 28.3 Seconds (25.1-36.5) 04/22/18 06:00 - Constitutional Appears: No Acute Distress - Head Exam Head Exam: NORMAL INSPECTION - Eye Exam Eye Exam: Normal appearance - ENT Exam ENT Exam: Mucous Membranes Moist - Neck Exam Neck Exam: Normal Inspection - Respiratory Exam Respiratory Exam: Clear to Ausculation Bilateral. absent: Rales, Rhonchi, Wheezes - Cardiovascular Exam Cardiovascular Exam: RRR, +S1, +S2. absent: Gallop, Rubs, Murmur - GI/Abdominal Exam GI & Abdominal Exam: Soft. 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 Plan: - Completed 3 day cycle of chemotherapy - Next cycle in 21-28 days - Monitor today and will likely discharge tomorrow - Patient given copies of imaging reports and CD - Cont Eliqius for a-fib - Anti-hypertensives continued with holding parameters, SBP < 100 and/or HR < 60 - All other home medications reviewed and continued - GI consulted due to increased colon uptake on PET/CT - recs elective colonscopy - Nephro consulted to r/o tumor lysis syndrome - monitor uric acid, possible allopurinol if needed - GI/DVT ppx with protonix/eliquis Case reviewed and discussed in detail with Dr. Pfeiffer. Misael Rae DO PGY2
[2018-04-24] MEDS: LIVALO 1 MG PO SCH (11:01)
[2018-04-24] MEDS: Pantoprazole 40 mg EC Tab PO SCH (11:02)
--- NOTE | 2018-04-24 12:07 | CP.PCM.DIS ---
Provider - Provider Date of Admission: 04/21/18 15:47 Attending physician: Yasir Briones MD Consults: GI: Jyoti Nephro: Vickey Time Spent in preparation of Discharge (in minutes): 45 Diagnosis - Discharge Diagnosis (1) Neuroendocrine cancer Status: Chronic Priority: High (2) Liver mass Status: Chronic Priority: High (3) Port-A-Cath in place Status: Acute Priority: High (4) Hospitalized for chemotherapy treatment Status: Acute Priority: High (5) Atrial fibrillation Status: Chronic Priority: Medium (6) CAD (coronary artery disease) Status: Chronic Priority: Medium Hospital Course - Lab Results Lab Results: Most Recent Lab Values WBC 12.6 10^3/ul (4.5-11.0) H 04/24/18 06:20 RBC 4.53 10^6/uL (3.5-6.1) 04/24/18 06:20 Hgb 14.2 g/dL (14.0-18.0) 04/24/18 06:20 Hct 41.2 % (42.0-52.0) L 04/24/18 06:20 MCV 90.9 fl (80.0-105.0) 04/24/18 06:20 MCH 31.3 pg (25.0-35.0) 04/24/18 06:20 MCHC 34.5 g/dl (31.0-37.0) 04/24/18 06:20 RDW 13.0 % (11.5-14.5) 04/24/18 06:20 Plt Count 167 10^3/uL (120.0-450.0) 04/24/18 06:20 MPV 9.0 fl (7.0-11.0) 04/24/18 06:20 Gran % 95.3 % (50.0-68.0) H 04/24/18 06:20 Lymph % (Auto) 3.2 % (22.0-35.0) L 04/24/18 06:20 [place] % (Auto) 1.5 % (1.0-6.0) 04/24/18 06:20 Eos % (Auto) 0.0 % (1.5-5.0) L 04/24/18 06:20 Baso % (Auto) 0.0 % (0.0-3.0) 04/24/18 06:20 Gran # 12.02 (1.4-6.5) H 04/24/18 06:20 Lymph # (Auto) 0.4 (1.2-3.4) L 04/24/18 06:20 Douglas # (Auto) 0.2 (0.1-0.6) 04/24/18 06:20 Eos # (Auto) 0.0 (0.0-0.7) 04/24/18 06:20 Baso # (Auto) 0.00 K/mm3 (0.0-2.0) 04/24/18 06:20 Neutrophils % (Manual) 96 % (50.0-70.0) H 04/22/18 06:00 Lymphocytes % (Manual) 4 % (22.0-35.0) L 04/22/18 06:00 Monocytes % (Manual) TEST NOT PERFORMED 04/22/18 06:00 Platelet Evaluation Normal (NORMAL) 04/22/18 06:00 PT 15.6 SECONDS (9.4-12.5) H 04/22/18 06:00 INR 1.35 04/22/18 06:00 APTT 28.3 Seconds (25.1-36.5) 04/22/18 06:00 Sodium 133 mmol/L (132-148) 04/24/18 06:20 Potassium 4.2 mmol/L (3.6-5.0) 04/24/18 06:20 Chloride 101 mmol/L (98-107) 04/24/18 06:20 Carbon Dioxide 22 mmol/L (21-33) 04/24/18 06:20 Anion Gap 14 (10-20) 04/24/18 06:20 BUN 25 mg/dL (7-21) H 04/24/18 06:20 Creatinine 0.7 mg/dl (0.8-1.5) L 04/24/18 06:20 Est GFR ( Amer) > 60 04/24/18 06:20 Est GFR (Non-Af Amer) > 60 04/24/18 06:20 Random Glucose 184 mg/dL (70-110) H 04/24/18 06:20 Uric Acid 5.5 mg/dL (3.5-8.5) 04/24/18 06:20 Calcium 9.4 mg/dL (8.4-10.5) 04/24/18 06:20 Phosphorus 3.5 mg/dL (2.5-4.5) 04/24/18 06:20 Magnesium 1.9 mg/dL (1.7-2.2) 04/24/18 06:20 Total Bilirubin 1.1 mg/dL (0.2-1.3) 04/24/18 06:20 AST 51 U/L (17-59) 04/24/18 06:20 ALT 36 U/L (7-56) 04/24/18 06:20 Alkaline Phosphatase 80 U/L (38-126) 04/24/18 06:20 Lactate Dehydrogenase 816 U/L (333-699) H 04/22/18 07:30 Total Protein 6.3 g/dL (5.8-8.3) 04/24/18 06:20 Albumin 3.2 g/dL (3.0-4.8) 04/24/18 06:20 Globulin 3.2 gm/dL 04/24/18 06:20 Albumin/Globulin Ratio 1.0 (1.1-1.8) L 04/24/18 06:20 Urine Color Dark yellow (YELLOW) 04/22/18 22:40 Urine Appearance Clear (CLEAR) 04/22/18 22:40 Urine pH 6.0 (4.7-8.0) 04/22/18 22:40 Ur Specific [place] 1.020 (1.005-1.035) 04/22/18 22:40 Urine Protein Negative mg/dL (<30 mg/dL) 04/22/18 22:40 Urine Glucose (UA) Negative mg/dL (NEGATIVE) 04/22/18 22:40 Urine Ketones Negative mg/dL (NEGATIVE) 04/22/18 22:40 Urine Blood Moderate (NEGATIVE) H 04/22/18 22:40 Urine Nitrate Negative (NEGATIVE) 04/22/18 22:40 Urine Bilirubin Negative (NEGATIVE) 04/22/18 22:40 Urine Urobilinogen 0.2 E.U./dL (<1 E.U./dL) 04/22/18 22:40 Ur Leukocyte Esterase Negative Jeet/uL (NEGATIVE) 04/22/18 22:40 Urine RBC 10 - 15 /hpf (0-2) 04/22/18 22:40 Urine WBC 0 - 2 /hpf (0-6) 04/22/18 22:40 Ur Epithelial Cells None /hpf (0-5) 04/22/18 22:40 Urine Bacteria Mod (NEG) 04/22/18 22:40 - Hospital Course Hospital Course: Patient is a 77 yo M with PMH of 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 Patient has never received chemo or radiation prior to this admission. Biopsy in March showed high grade neuroendocrine tumor. Patient received a 3 day regimen of Carboplatin on day 1 and Etoposide on day 1, 2, and 3. As this was the initial cycle of treatment, nephro was consulted to rule out tumor lysis syndrome, recommendations were appreciated. Labs were unremarkable. GI was consulted due to increased uptake found in colon on PET scan, who recommended elective colonscopy. Patient tolerated treatment well. Plan is to discharge patient and he will return tomorrow to oncology infusion clinic for hydration and Neulasta. Plan was discussed with patient and , who acknowledged and agreed. Plan was discussed with all consultants, who agreed with plan. Medications - Amlodipine 10 mg PO daily - Eliquis 5 mg PO BID - ASA 81 mg PO daily - Atenolol 50 mg PO daily - Ezetimibe 10 mg PO daily - Imdur ER 30 mg PO daily - Lisinopril 5 mg PO daily - Lorazepam 1 mg PO q4h prn - Livalo 1 mg PO daily - Percocet 5/325 mg PO q4h prn - Protonix 40 mg PO daily - Flomax 0.4 mg PO daily Discharge Exam - Head Exam Head Exam: ATRAUMATIC, NORMOCEPHALIC - Eye Exam Eye Exam: Normal appearance Pupil Exam: NORMAL ACCOMODATION - ENT Exam ENT Exam: Normal Exam - Neck Exam Neck exam: Normal Inspection - Respiratory Exam Respiratory Exam: Clear to PA & Lateral. absent: Rales, Rhonchi, Wheezes - Cardiovascular Exam Cardiovascular Exam: RRR, +S1, +S2. absent: Diastolic murmur, Gallop, Rubs, Systolic Murmur - GI/Abdominal Exam GI & Abdominal Exam: Soft. absent: Diminished Bowel Sounds, Distended, Guarding , Rebound, Tenderness - Extremities Exam Extremities exam: normal inspection - Back Exam Back exam: NORMAL INSPECTION - Neurological Exam Neurological exam: Alert, Oriented x3 - Psychiatric Exam Psychiatric exam: Normal Affect, Normal Mood - Skin Skin Exam: Dry, Intact, Normal Color, Warm Discharge Plan - Follow Up Plan Condition: STABLE Disposition: HOME/ ROUTINE Instructions: Chemotherapy, Portacath (DC), Neuroendocrine Tumor Additional Instructions: - Follow up to Oncology infusion clinic tomorrow for hydration and Neulasta - Follow up with Dr. Pfeiffer in clinic in 5-7 days - Follow up with Dr. Montes when convenient for elective colonscopy - Resume home medications as prescribed - Return to ED if symptoms worsen Referrals: Tram Pfeiffer MD [Staff Provider] - Faye Montes MD [Medical Doctor] -
--- NOTE | 2018-04-24 16:09 | PN ---
DATE: 04/24/2018 SUBJECTIVE: The patient is seen lying in bed. He is sleeping comfortably. is at bedside. PHYSICAL EXAMINATION: GENERAL: Elderly male, lying in bed. VITAL SIGNS: Blood pressure 124/87, heart rate 89, respiratory rate 20, temperature 98. HEENT: Normocephalic, atraumatic, positive pallor. NECK: Supple, no JVD. LUNGS: Bilateral equal air entry, bilateral equal expansion. EXTREMITIES: No lower extremity edema. INTAKE AND OUTPUT: 2300/2250. LABORATORY DATA: WBC 12.6, hemoglobin 14, hematocrit 41, platelets 167. Sodium 133, potassium 4.2, chloride 101, CO2 of 22, BUN 25, creatinine 0.7, glucose 184, calcium 9.4, phosphorus 3.5, magnesium 1.9, uric acid 5.5, albumin 3.2. CURRENT MEDICATIONS: Ativan, Ecotrin, Eliquis, Flomax, Imdur, amlodipine 10 mg, Protonix, normal saline at 75, Tenormin 50, Zestril 5, Zetia 10 mg, Zofran. ASSESSMENT: 1. Neuroendocrine tumor, receiving chemotherapy. 2. Mild hypomagnesemia, resolved. 3. Hypertension, well controlled. 4. Noninsulin-dependent diabetes mellitus, diet controlled. 5. Mild hyponatremia. PLAN: 1. Continue current antihypertensives. 2. No indication for allopurinol at this time. Uric acid is normal. 3. Will require close outpatient followup. 4. Restrict p.o. free fluids. Shira Hurd MD
== END 2018-04-24 19:31 | disposition home or self-care (01) | DRG 847 ==
LOC: SDS 13:19 → 3RSO 15:47
PROVIDERS: ADMIT Family Medicine; ATTEND Family Medicine
PROC: 3E04305 Introduction of Other Antineoplastic into Central Vein, Percutaneous Approach (ICD-10-PCS; principal; 2018-04-21)
PROC: 02HV33Z Insertion of Infusion Device into Superior Vena Cava, Percutaneous Approach (ICD-10-PCS; 2018-04-21)
PROC: B543ZZA Ultrasonography of Right Jugular Veins, Guidance (ICD-10-PCS; 2018-04-21)
DX: Z51.11 Encounter for antineoplastic chemotherapy (principal); C7A.1 Malignant poorly differentiated neuroendocrine tumors; C34.90 Malignant neoplasm of unspecified part of unspecified bronchus or lung; E87.1 Hypo-osmolality and hyponatremia; I25.10 Atherosclerotic heart disease of native coronary artery without angina pectoris; I10 Essential (primary) hypertension; I48.2 Chronic atrial fibrillation; E11.9 Type 2 diabetes mellitus without complications; N40.0 Benign prostatic hyperplasia without lower urinary tract symptoms; E78.5 Hyperlipidemia, unspecified; E83.42 Hypomagnesemia; K21.9 Gastro-esophageal reflux disease without esophagitis; N28.1 Cyst of kidney, acquired; R16.0 Hepatomegaly, not elsewhere classified; K46.9 Unspecified abdominal hernia without obstruction or gangrene; I25.2 Old myocardial infarction; Z79.01 Long term (current) use of anticoagulants; Z95.5 Presence of coronary angioplasty implant and graft; Z86.19 Personal history of other infectious and parasitic diseases; Z87.891 Personal history of nicotine dependence; Z86.73 Personal history of transient ischemic attack (TIA), and cerebral infarction without residual deficits

== ENCOUNTER 2018-08-11 16:47 | Outpatient (CLI) | payer MEDICARE | END 2018-08-11 16:48 | disposition home or self-care (01) | LOC: LAB 16:47 ==

== ENCOUNTER 2018-09-01 05:09 | Outpatient (CLI) | payer MEDICARE | END 2018-09-01 05:10 | disposition home or self-care (01) | LOC: PET-BROA 05:10 | DX: C22.0 Liver cell carcinoma (principal); C7A.00 Malignant carcinoid tumor of unspecified site ==

== ENCOUNTER 2018-09-01 17:30 | Outpatient (CLI) | payer MEDICARE | END 2018-09-01 17:31 | disposition home or self-care (01) | LOC: OPLAB 17:30 | DX: D64.9 Anemia, unspecified (principal); E78.5 Hyperlipidemia, unspecified; M81.0 Age-related osteoporosis without current pathological fracture; E83.40 Disorders of magnesium metabolism, unspecified ==

== ENCOUNTER 2018-09-22 17:55 | Outpatient (CLI) | payer MEDICARE | END 2018-09-22 17:56 | disposition home or self-care (01) | LOC: OPLAB 17:55 ==

== ENCOUNTER 2018-10-13 18:24 | Outpatient (CLI) | payer MEDICARE | END 2018-10-13 18:25 | disposition home or self-care (01) | LOC: OPLAB 18:24 ==

== ENCOUNTER 2018-10-28 17:10 | Outpatient (CLI) | payer MEDICARE | END 2018-10-28 17:11 | disposition home or self-care (01) | LOC: OPLAB 17:10 ==

== ENCOUNTER 2018-11-17 17:05 | Outpatient (CLI) | payer MEDICARE | END 2018-11-17 17:06 | disposition home or self-care (01) | LOC: OPLAB 17:05 ==

== ENCOUNTER 2018-12-08 17:03 | Outpatient (CLI) | payer MEDICARE | END 2018-12-08 17:04 | disposition home or self-care (01) | LOC: OPLAB 17:03 ==

== ENCOUNTER 2018-12-17 13:01 | Outpatient (CLI) | payer MEDICARE | END 2018-12-17 13:02 | disposition home or self-care (01) | LOC: OPLAB 13:01 ==

== ENCOUNTER 2018-12-17 13:52 | Inpatient (IN) | payer MEDICARE ==
[2018-12-17 13:52] VITALS: BMI 26.9
--- NOTE | 2018-12-17 14:24 | ED PDOC ---
Arrival/HPI - General Historian: Patient - History of Present Illness Narrative History of Present Illness (Text): 12/17/18 14:21 CC: Abdominal distention and scrotal swelling HPI: 78 yo male w/ PMH of SCLC (finished chemo and radiation therapy with Dr. Pfeiffer), HTN, CAD with 5 stents, and TIA presents to ED for evaluation of increasing swelling for past week in scrotum and abdomen. Patient states that he really noticed the swelling increase on this past Saturday once patient had difficulty urinating as much due to the increased scrotal swelling. Patient denies dysuria and previous prostate problems. Patient was recently seen by a urologist who told him that doubted he had urinary retention based on physical exam as per patient. Patient was seeing Dr. Pfeiffer for maintenance therapy to boost his immune system who suggested that patient come to the ED for assessment. Admits to abdominal swelling, tenderness, decreased urine output and scrotal swelling. Denies fevers, chills, chest pain, sob, n/v, constipation or diarrhea, and dysuria. Time/Duration: 1 week Symptom Onset: Gradual Symptom Course: Worsening Quality: Aching, Pressure Activities at Onset: Rest Context: Sitting <Karla Dumont - Last Filed: 12/17/18 18:30> <Fransico Hoff DO - Last Filed: 12/17/18 19:04> - General Chief Complaint: Male Genitourinary Time Seen by Provider: 12/17/18 14:21 Past Medical History - Provider Review Nursing Documentation Reviewed: Yes - Infectious Disease Hx of Infectious Diseases: None - Cardiac Hx Cardiac Disorders: Yes Hx Coronary Artery Disease: Yes (5 stents) Hx Hypertension: Yes - Pulmonary Hx Respiratory Disorders: No - Neurological Hx Neurological Disorder: Yes Hx Paralysis: No Hx Transient Ischemic Attacks (TIA): Yes - HEENT Hx HEENT Disorder: No - Renal Hx Renal Disorder: No - Endocrine/Metabolic Hx Endocrine Disorders: No - Hematological/Oncological Hx Blood Transfusions: No Hx Blood Transfusion Reaction: No Hx Cancer: Yes (SCLC) - Integumentary Hx Dermatological Disorder: No - Musculoskeletal/Rheumatological Hx Musculoskeletal Disorders: No - Psychiatric Hx Emotional Abuse: No Hx Physical Abuse: No Hx Substance Use: No - Surgical History Other/Comment: HERNIA surgery - Anesthesia Hx Anesthesia Reactions: No Hx Malignant Hyperthermia: No - Suicidal Assessment Feels Threatened In Home Enviroment: No <Karla Dumont - Last Filed: 12/17/18 18:30> Family/Social History Family/Social History: CAD/HI Smoking Status: Former Smoker Hx Alcohol Use: Yes (OCCASIONAL WINE) Hx Substance Use: No <Karla Dumont - Last Filed: 12/17/18 18:30> Allergies/Home Meds <Karla Dumont - Last Filed: 12/17/18 18:30> <Fransico Hoff DO - Last Filed: 12/17/18 19:04> Allergies/Adverse Reactions: Allergies Penicillins Allergy (Severe, Verified 06/06/18 10:39) RASH Home Medications: Home Meds Medication Instructions Recorded Confirmed Apixaban [Eliquis] 5 mg PO BID 11/13/17 12/09/18 Aspirin [Ecotrin] 81 mg PO QAM 11/13/17 12/09/18 Atenolol [Tenormin] 50 mg PO QPM 11/13/17 12/09/18 Ezetimibe [Zetia] 10 mg PO QAM 11/13/17 12/09/18 Isosorbide Mononitrate [Isosorbide 30 mg PO QAM 11/13/17 12/09/18 Mononitrate ER] Pantoprazole [Protonix EC Tab] 40 mg PO QAM 11/13/17 12/09/18 Pitavastatin Calcium [Livalo] 1 mg PO QAM 11/13/17 12/09/18 Tamsulosin [Flomax] 0.4 mg PO QPM 11/13/17 12/09/18 LORazepam [Ativan] 1 mg PO PRN PRN 04/17/18 12/09/18 Oxycodone HCl/Acetaminophen 1 tab PO Q4H PRN 04/17/18 12/09/18 [Oxycodone-Acetaminophen 5-325] Ondansetron [Zofran Tab] 4 mg PO Q8H PRN 04/25/18 12/09/18 traMADol [Ultram] 50 mg PO Q6H PRN 05/13/18 12/09/18 Digoxin [Lanoxin] 0.25 mg PO DAILY 06/03/18 12/09/18 Repaglinide [Prandin] 0.5 mg PO BID 10/29/18 12/09/18 Acetaminophen [Tylenol] 650 mg PO Q4H PRN 12/09/18 12/09/18 Review of Systems - Physician Review All systems were reviewed & negative as marked: Yes - Review of Systems Constitutional: Normal. absent: Fatigue, Weight Change, Fevers Eyes: Normal. absent: Vision Changes, Photophobia, Eye Pain ENT: Normal. absent: Hearing Changes, Tinnitus Respiratory: Normal. absent: SOB, Cough, Sputum, Wheezing Cardiovascular: Normal. absent: Chest Pain, Palpitations, Edema, Calf Pain Gastrointestinal: Abdominal Pain. absent: Constipation, Diarrhea, Nausea, Vomiting Genitourinary Male: Frequency. absent: Hematuria Musculoskeletal: Normal. absent: Back Pain, Neck Pain Skin: Normal. absent: Rash, Pruritis, Skin Lesions, Laceration Neurological: Normal. absent: Headache, Dizziness, Focal Weakness, Gait Changes Endocrine: Normal. absent: Diaphoresis, Polyuria, Polydipsia Psychiatric: Normal. absent: Anxiety, Depression <Tim,Madaser - Last Filed: 12/17/18 18:30> Physical Exam Vital Signs Reviewed: Yes Vital Signs Temp Pulse Resp BP Pulse Ox 12/17/18 14:13 98.1 F 102 H 20 128/83 98 Temperature: Afebrile Blood Pressure: Normal Pulse: Tachycardic Respiratory Rate: Normal Appearance: Positive for: Well-Appearing, Non-Toxic, Comfortable Pain Distress: None Mental Status: Positive for: Alert and Oriented X 3 - Systems Exam Head: Present: Atraumatic, Normocephalic Pupils: Present: PERRL Extroacular Muscles: Present: EOMI Conjunctiva: Present: Normal. No: Injected Mouth: Present: Moist Mucous Membranes Neck: Present: Normal Range of Motion. No: Meningeal Signs, JVD, Lymphadenopat hy Respiratory/Chest: Present: Clear to Auscultation, Good Air Exchange. No: Respiratory Distress, Accessory Muscle Use, Wheezes, Decreased Breath Sounds Cardiovascular: Present: Regular Rate and Rhythm, Normal S1, S2. No: Murmurs, Tachycardic Abdomen: Present: Tenderness, Distention, Normal Bowel Sounds. No: Peritoneal Signs, Rebound, Guarding Genitourinary Male: Present: Testicle Swelling. No: Lesions, Penile Discharge, Testicle Tenderness, Penile Swelling, Erythema Upper Extremity: Present: Normal Inspection. No: Cyanosis, Edema Lower Extremity: Present: Normal Inspection. No: Edema Neurological: Present: GCS=15, CN II-XII Intact, Speech Normal Skin: Present: Warm, Dry, Normal Color. No: Rashes Psychiatric: Present: Alert, Oriented x 3, Normal Insight, Normal Concentration <Karla Dumont - Last Filed: 12/17/18 18:30> Vital Signs Temp Pulse Resp BP Pulse Ox 12/17/18 14:13 98.1 F 102 H 20 128/83 98 <Fransico Hoff DO - Last Filed: 12/17/18 19:04> Medical Decision Making ED Course and Treatment: 12/17/18 14:47 Impression 78 yo male sent in by oncologist, Dr. Pfeiffer, for increased abdominal swelling and testicular swelling. Plan -CBC/CMP/Mag/Phos -Cardiac ISO -Lipase -BNP -VBG -BCX -UCX -NS @ 100 -Bladder U/S; Bladder Scan -CT scan of abd/pelvis w/ po & IV contrast -Chest CT w/o conrast -U/A Prior Visits All prior visits reviewed for this evaluation Progress Notes Elevated lactate, afebrile, pending CBC/CMP pending imaging studies 12/17/18 18:30 Imaging studies show progression of tumor burden into liver Imagine studies suggestive of acute cholecystitis although clinically patient has minimal signs on physical exam and lab work Spoke with Maria Elena certified surgical assistant to discuss patient details, as patient will get a consult with surgery with Dr. Ruth Spoke with Dr. Pfeiffer's medicine resident, Medardo, who suggested for an abdominal ultrasound. regional vice president surgical sales agreed Ordered abdominal U/S. Placed call to Dr. Pfeiffer. Pending callback. Patient will likely be accepted to Dr. Pfeiffer's service as he was sent in by Dr. Pfeiffer. Re-evaluation Time: 18:30 Reassessment Condition: Re-examined, Unchanged - Lab Interpretations I have reviewed the lab results: Yes Interpretation: Abnormal lab values - RAD Interpretation Radiology Orders: 12/17/18 14:16 ABD PELVIS PO & IV CONTRAST [CT] Stat 12/17/18 14:17 CHEST W/O CONTRAST [CT] Stat 12/17/18 14:18 BLADDER ONLY/RESIDUAL URINE [US] Stat Radiology Results Abdomen/Pelvis CT 12/17/18 14:16 IMPRESSION: 1. Tumor progression in the liver. 2. New abdominal and pelvic ascites. 3. Abnormal gallbladder consisting of gallbladder wall thickening and gallstones which appear to be lodged in the gallbladder neck. The findings are suspicious for acute cholecystitis. 4. Residual retroperitoneal, mesenteric adenopathy. 5. New edema and anasarca. 6. Additional benign and/or incidental findings described above. Chest CT 12/17/18 14:17 IMPRESSION: 1. No acute findings related to/ accounting for the clinical presentation. 2. Trace pleural effusions. 3. Small pericardial effusion. 4. Pleural manifestations of prior asbestos exposure. Bladder Ultrasound 12/17/18 14:18 Impression: Prevoid urinary bladder: 98.4 mL Postvoid urinary bladder: No post void residual. Bilateral ureteral jets are not identified. Enlarged prostate gland; recommend correlation with PSA. Oven Drier Tender: ED Physician - Medication Orders Current Medication Orders: Sodium Chloride (Sodium Chloride 0.9%) 1,000 mls @ 100 mls/hr IV .Q10H GERDA - Transfer of Care Awaiting call back from Dr:: Margarette <Karla Dumont - Last Filed: 12/17/18 18:30> ED Course and Treatment: 12/17/18 17:30 Patient Seen with Resident: In agreement with resident note which contains more details about the patient. Patient seen and evaluated with resident. Came up with plan and treatment together. - Lab Interpretations Lab Results: pO2 43 mm/Hg (30-55) 12/17/18 14:16 VBG pH 7.37 (7.32-7.43) 12/17/18 14:16 VBG pCO2 37.0 (40-60) L 12/17/18 14:16 VBG HCO3 21.4 mmol/l (21-28) 12/17/18 14:16 VBG Total CO2 22.5 mmol.L (22-28) 12/17/18 14:16 VBG O2 Sat (Calc) 81.6 % (40-65) H 12/17/18 14:16 VBG Base Excess -3.4 mmol/L (0.0-2.0) L 12/17/18 14:16 VBG Potassium 4.3 mmol/L (3.6-5.2) 12/17/18 14:16 Sodium 128.0 mmol/L (132-148) L 12/17/18 14:16 Chloride 95.0 mmol/L (98-107) L 12/17/18 14:16 Glucose 102 mg/dl (75-110) 12/17/18 14:16 Lactate 4.5 mmol/L (0.7-2.1) H* 12/17/18 14:16 FiO2 21.0 % 12/17/18 14:16 Crit Value Called To Md celso morales 12/17/18 14:16 Crit Value Called By Diomedes thomas 12/17/18 14:16 Blood Gas Notified Time 1445 12/17/18 14:16 PT 20.5 SECONDS (9.4-12.5) H 12/17/18 14:18 INR 1.85 12/17/18 14:18 APTT 29.7 Seconds (26.9-38.3) 12/17/18 14:18 Troponin I < 0.01 ng/mL 12/17/18 14:18 NT-Pro-B Natriuret Pep 1420 pg/mL (0-450) H 12/17/18 14:18 Total Bilirubin 1.3 mg/dL (0.2-1.3) 12/17/18 14:18 AST 71 U/L (17-59) H 12/17/18 14:18 ALT 43 U/L (7-56) 12/17/18 14:18 Alkaline Phosphatase 148 U/L (38-126) H 12/17/18 14:18 Total Protein 5.4 g/dL (5.8-8.3) L 12/17/18 14:18 Albumin 2.9 g/dL (3.0-4.8) L 12/17/18 14:18 Globulin 2.5 gm/dL 12/17/18 14:18 Albumin/Globulin Ratio 1.2 (1.1-1.8) 12/17/18 14:18 Lipase 31 U/L (23-300) 12/17/18 14:18 Urine Color Dark yellow (YELLOW) 12/17/18 15:35 Urine Appearance Sl cloudy (CLEAR) 12/17/18 15:35 Urine pH 6.0 (4.7-8.0) 12/17/18 15:35 Ur Specific [place] 1.025 (1.005-1.035) 12/17/18 15:35 Urine Protein Trace mg/dL (<30 mg/dL) H 12/17/18 15:35 Urine Glucose (UA) Negative mg/dL (NEGATIVE) 12/17/18 15:35 Urine Ketones Trace mg/dL (NEGATIVE) H 12/17/18 15:35 Urine Blood Negative (NEGATIVE) 12/17/18 15:35 Urine Nitrate Positive (NEGATIVE) H 12/17/18 15:35 Urine Bilirubin Small (NEGATIVE) H 12/17/18 15:35 Urine Urobilinogen 2.0 E.U./dL (<1 E.U./dL) H 12/17/18 15:35 Ur Leukocyte Esterase Negative Jeet/uL (NEGATIVE) 12/17/18 15:35 Urine RBC None /hpf (0-2) 12/17/18 15:35 Urine WBC 5 - 10 /hpf (0-6) H 12/17/18 15:35 Ur Epithelial Cells 4 - 5 /hpf (0-5) 12/17/18 15:35 Urine Bacteria Few /hpf (NONE) 12/17/18 15:35 - RAD Interpretation Radiology Orders: 12/17/18 14:16 ABD PELVIS PO & IV CONTRAST [CT] Stat 12/17/18 14:17 CHEST W/O CONTRAST [CT] Stat 12/17/18 14:18 BLADDER ONLY/RESIDUAL URINE [US] Stat - Medication Orders Current Medication Orders: Sodium Chloride (Sodium Chloride 0.9%) 1,000 mls @ 100 mls/hr IV .Q10H GERDA Last Admin: 12/17/18 15:39 Dose: 100 mls/hr eMAR Start Stop Document 12/17/18 15:39 [email or web address] (Rec: 12/17/18 15:39 [email or web address] [id number]) Intravenous Solution Start Date 12/17/18 Start Time 15:39 <Fransico Hoff DO - Last Filed: 12/17/18 19:04> - PA / [employer] / Resident Statement RYAN has reviewed & agrees with the documentation as recorded. RYAN has examined the patient and agrees with the treatment plan. <Fransico Hoff DO - Last Filed: 12/17/18 19:04> Disposition/Present on Arrival - Present on Arrival Any Indicators Present on Arrival: No History of DVT/PE: No History of Uncontrolled Diabetes: No Urinary Catheter: No History of Decub. Ulcer: No History Surgical Site Infection Following: None - Disposition Have Diagnosis and Disposition been Completed?: Yes <Karla Dumont - Last Filed: 12/17/18 18:30> - Disposition Disposition Time: 19:00 Patient Plan: Telemetry <Fransico Hoff DO - Last Filed: 12/17/18 19:04> - Disposition Diagnosis: Small cell lung cancer, Liver metastasis, Acute cholecystitis Disposition: HOSPITALIZED Patient Problems: Current Active Problems Problem Status Onset Small cell lung cancer Acute Liver metastasis Acute Acute cholecystitis Acute Condition: FAIR Referrals: Tram Pfeiffer MD [Primary Care Provider] - Follow up with primary Forms: [facility] ([place])
[2018-12-17] MEDS ORDERED: Iohexol 240 (50 ml) ONE (14:27)
[2018-12-17] MEDS ORDERED: Sodium Chloride 0.9% 1,000 ML IV SCH (14:30)
[2018-12-17 14:45] LABS: VENOUS BLOOD GAS BASE EXCESS -3.4 mmol/L (0.0-2.0); VENOUS BLOOD GAS PO2 43 mm/Hg (30-55); VENOUS BLOOD PH 7.37 (7.32-7.43)
[2018-12-17 14:49] LABS: EOS % 0.1 % (1.5-5.0); HEMOGLOBIN 14.5 g/dL (14.0-18.0); LYMPH # 0.9 (1.2-3.4); LYMPH % 11.3 % (22.0-35.0); MEAN CELL VOLUME 93.1 fl (80.0-105.0); MEAN CORPUSCULAR HEMOGLOBIN 32.4 pg (25.0-35.0); MEAN CORPUSCULAR HGB CONC 34.8 g/dl (31.0-37.0); MEAN PLATELET VOLUME 9.5 fl (7.0-11.0); MONO # 0.7 (0.1-0.6); MONO % 9.3 % (1.0-6.0); RBC 4.48 10^6/uL (3.5-6.1); RED CELL DISTRIBUTION WIDTH 15.5 % (11.5-14.5)
[2018-12-17 14:57] LABS: INR 1.85; PARTIAL THROMBOPLASTIN TIME 29.7 Seconds (26.9-38.3); PROTHROMBIN TIME 20.5 SECONDS (9.4-12.5)
[2018-12-17 15:01] LABS: ALB/GLOB RATIO 1.2 (1.1-1.8); ALBUMIN 2.9 g/dL (3.0-4.8); ALT/SGPT 43 U/L (7-56); AST/SGOT 71 U/L (17-59); BLOOD UREA NITROGEN 28 mg/dL (7-21); CALCIUM 9.4 mg/dL (8.4-10.5); GFR NON-AFRICAN AMERICAN > 60; LIPASE 31 U/L (23-300)
[2018-12-17 15:13] LABS: B-TYPE NATRIURETIC PEPTIDE 1420 pg/mL (0-450); TROPONIN I < 0.01 ng/mL
--- NOTE | 2018-12-17 15:45 | US ---
Indication: urinary retention Technique: Bladder only/residual urine ultrasound Comparison: No prior ultrasound available for comparison Findings: Prevoid urinary bladder: 98.5 mL Postvoid urinary bladder: No post void residual. Bilateral ureteral jets are not identified. No evidence of urinary bladder wall thickening. No evidence of urinary bladder calculi. The prostate gland measures approximately 4.2 x 4.7 x 5.2 cm, approximately 55.5 cm. No significant pelvic free fluid identified. Impression: Prevoid urinary bladder: 98.4 mL Postvoid urinary bladder: No post void residual. Bilateral ureteral jets are not identified. Enlarged prostate gland; recommend correlation with PSA.
[2018-12-17 15:49] LABS: URINE BILIRUBIN SMALL (NEGATIVE); URINE BLOOD NEGATIVE (NEGATIVE); URINE GLUCOSE (UA) NEGATIVE (NEGATIVE); URINE LEUKOCYTE ESTERASE NEGATIVE Leu/uL (NEGATIVE); URINE PROTEIN TRACE mg/dL (<30 mg/dL)
[2018-12-17 15:59] LABS: URINE APPEARANCE SL CLOUDY (CLEAR); URINE COLOR DARK YELLOW (YELLOW)
[2018-12-17 16:10] LABS: URINE BACTERIA FEW /hpf
--- NOTE | 2018-12-17 17:39 | CT ---
Date of service: 12/17/2018 PROCEDURE: CT Chest without contrast HISTORY: Abdominal pain, shortness of breath. COMPARISON: December 17, 2018. CT abdomen and pelvis. 09/01/2018 PET-CT scan. TECHNIQUE: Contiguous axial images were obtained through the chest without intravenous contrast enhancement. Sagittal and coronal reconstructions were performed. Radiation dose: Total exam DLP = 678.04 mGy-cm. This CT exam was performed using one or more of the following dose reduction techniques: Automated exposure control, adjustment of the mA and/or kV according to patient size, and/or use of iterative reconstruction technique. FINDINGS: LUNGS: No suspicious pulmonary nodules, masses or infiltrates. MEDIASTINUM: Unremarkable thoracic aorta. No aneurysm. Normal sized heart. Main pulmonary artery unremarkable. No vascular congestion. No lymphadenopathy. Small pericardial effusion. No aortic atherosclerotic calcification. PLEURA: Trace pleural effusions. Calcified pleural plaques consistent with prior asbestos exposure. BONES: No fracture. No destructive lesion. Marginal common non marginal osteophyte formation. UPPER ABDOMEN: Cirrhotic liver, ill-defined liver masses. Incompletely visualized upper abdominal ascites. OTHER FINDINGS: None. IMPRESSION: 1. No acute findings related to/ accounting for the clinical presentation. 2. Trace pleural effusions. 3. Small pericardial effusion. 4. Pleural manifestations of prior asbestos exposure.
--- NOTE | 2018-12-17 18:01 | CT ---
Date of service: 12/17/2018 PROCEDURE: CT Abdomen and Pelvis with contrast HISTORY: abdominal pain and distention COMPARISON: 03/25/2018. CT abdomen assessment liver with triple phase protocol. TECHNIQUE: Intravenous contrast dose: 146 cc Omnipaque 350. Radiation dose: Total exam DLP = 1071.44 mGy-cm. This CT exam was performed using one or more of the following dose reduction techniques: Automated exposure control, adjustment of the mA and/or kV according to patient size, and/or use of iterative reconstruction technique. FINDINGS: LOWER THORAX: Trace bilateral pleural effusions. Partially calcified pleural plaques. LIVER: Cirrhotic liver. Redemonstration tumor in the left hepatic lobe. On the previous study the mass measured 4.6 x 6.3 cm. The tumor is now more diffuse and infiltrative. Innumerable masses in the remainder of the liver GALLBLADDER AND BILE DUCTS: Markedly thickened gallbladder wall. Trace pericholecystic fluid. Gallstones lodged in the neck of the gallbladder. PANCREAS: Unremarkable. No gross lesion or ductal dilatation. SPLEEN: Unremarkable. ADRENALS: Unremarkable. No mass. KIDNEYS AND URETERS: Simple bilateral renal cysts identified no hydronephrosis. No solid mass. VASCULATURE: Unremarkable. No aortic aneurysm. No atherosclerotic calcification or mural plaque present. BOWEL: Unremarkable. No obstruction. No gross mural thickening. APPENDIX: Normal appendix. PERITONEUM: New intra-abdominal and pelvic ascites. No free air. LYMPH NODES: Extensive abdominal retroperitoneal adenopathy. The overall size of the lymph nodes has diminished. This is consistent with absence of FDG activity in these lymph nodes on prior head CT scan 09/01/2018. BLADDER: Unremarkable. REPRODUCTIVE: Stable enlargement of the prostate gland. BONES: No acute fracture. OTHER FINDINGS: Subcutaneous edema/anasarca a new finding compared to the prior study. IMPRESSION: 1. Tumor progression in the liver. 2. New abdominal and pelvic ascites. 3. Abnormal gallbladder consisting of gallbladder wall thickening and gallstones which appear to be lodged in the gallbladder neck. The findings are suspicious for acute cholecystitis. 4. Residual retroperitoneal, mesenteric adenopathy. 5. New edema and anasarca. 6. Additional benign and/or incidental findings described above.
--- NOTE | 2018-12-17 18:32 | CARD ---
APPROVED REPORT Date of service: 12/17/2018 EKG Measurement Heart [id number] <Conclusion> Atrial fibrillation with a rapid ventricular response Possible Septal infarct, age undetermined ST & T wave abnormalities Abnormal ECG
--- NOTE | 2018-12-17 19:17 | CP.PCM.CON ---
<Maria Elena Dela Cruz - Last Filed: 12/17/18 19:35> History of Present Illness - History of Present Illness History of Present Illness: General Surgery Dr. Juarez Surgery Consult: possible acute cholecystitis 78 y/o M w/ PMHx of metastatic small cell lung cancer, Afib, HTN, CAD, NM presents to the ED @the direction of Dr. Estrella for abd pain and concern for hematuria. Pt saw Dr. Estrella in the transfusion center today and admitted to some mild, intermittent abd pain. Pain is intermittent and localized to B/L lower abd. Pt denies any inciting, remitting, exacerbating factors. Pain not ass ociated w/ PO intake, urination, bowel movements. Pt admitted to nausea, now resolved, that started at office visit. Pt denies F/C, N/V, abd pain, N/V, dysuria. CT performed in ED showed worsening liver metastasis, abd/pelvic ascites w/ thickened gb and gallstone in fundus. Surgery consulted for possible cholecystitis. PMHx: see above, TIA, HLD, renal cyst, hepatitis C (treated 1997), abdominal hernia, BPH, and GERD Meds: reviewed in chart ALL: PCN PSHx: portacath, liver/LN Bx, paracentesis, PCI SHx: quit smoking 40yrs ago; occasional EtOH; denies drug use FHx: noncontributory Review of Systems - Review of Systems All systems: reviewed and no additional remarkable complaints except (see HPI) Past Patient History - Infectious Disease Hx of Infectious Diseases: None - Past Social History Smoking Status: Former Smoker - CARDIAC Hx Cardiac Disorders: Yes Hx Hypertension: Yes - PULMONARY Hx Respiratory Disorders: No - NEUROLOGICAL Hx Neurological Disorder: Yes Hx Paralysis: No Hx Transient Ischemic Attacks (TIA): Yes - HEENT Hx HEENT Problems: No - RENAL Hx Chronic Kidney Disease: No - ENDOCRINE/METABOLIC Hx Endocrine Disorders: No - HEMATOLOGICAL/ONCOLOGICAL Hx Blood Transfusions: No Hx Blood Transfusion Reaction: No Hx Cancer: Yes (SCLC) - INTEGUMENTARY Hx Dermatological Problems: No - MUSCULOSKELETAL/RHEUMATOLOGICAL Hx Musculoskeletal Disorders: No - PSYCHIATRIC Hx Emotional Abuse: No Hx Physical Abuse: No Hx Substance Use: No - SURGICAL HISTORY Other/Comment: HERNIA surgery - ANESTHESIA Hx Anesthesia Reactions: No Hx Malignant Hyperthermia: No Meds Allergies/Adverse Reactions: Allergies Allergy/AdvReac Type Severity Reaction Status Date / Time Penicillins Allergy Severe RASH Verified 06/06/18 10:39 - Medications Medications: Current Medications Sodium Chloride (Sodium Chloride 0.9%) 1,000 mls @ 100 mls/hr IV .Q10H GERDA Last Admin: 12/17/18 15:39 Dose: 100 mls/hr Aztreonam (Azactam 1 Gm) 100 mls @ 100 mls/hr IVPB Q8 GERDA; Protocol Stop: 12/18/18 06:59 Physical Exam - Constitutional Appears: Non-toxic, No Acute Distress - Head Exam Head Exam: NORMAL INSPECTION - Eye Exam Eye Exam: Normal appearance. absent: Scleral icterus - ENT Exam ENT Exam: Mucous Membranes Moist - Respiratory Exam Respiratory Exam: NORMAL BREATHING PATTERN. absent: Accessory Muscle Use, Respiratory Distress - Cardiovascular Exam Cardiovascular Exam: absent: Bradycardia, Tachycardia - GI/Abdominal Exam GI & Abdominal Exam: Distended (ascites), Soft. absent: Firm, Guarding, Rebound, Rigid, Tenderness - Extremities Exam Extremities exam: Positive for: normal inspection. Negative for: pedal edema - Neurological Exam Neurological exam: Alert, Oriented x3 - Psychiatric Exam Psychiatric exam: Normal Affect, Normal Mood - Skin Skin Exam: Dry, Intact, Normal Color, Warm Results - Vital Signs Recent Vital Signs: Last Vital Signs Temp 98.1 F 12/17/18 14:13 Pulse 102 H 12/17/18 14:13 Resp 20 12/17/18 14:13 BP 128/83 12/17/18 14:13 Pulse Ox 98 12/17/18 14:13 - Labs Result Diagrams: 12/17/18 14:18 12/17/18 14:18 Labs: Laboratory Results - last 24 hr 12/17/18 12/17/18 12/17/18 14:16 14:18 14:18 WBC 8.0 D RBC 4.48 Hgb 14.5 D Hct 41.7 L MCV 93.1 D MCH 32.4 MCHC 34.8 RDW 15.5 H Plt Count 106 L MPV 9.5 Neut % (Auto) 79.3 H Lymph % (Auto) 11.3 L [place] % (Auto) 9.3 H Eos % (Auto) 0.1 L Baso % (Auto) 0.0 Lymph # (Auto) 0.9 L [place] # (Auto) 0.7 H Eos # (Auto) 0.0 Baso # (Auto) 0.00 Absolute Neuts (auto) 6.31 PT 20.5 H INR 1.85 APTT 29.7 pO2 43 VBG pH 7.37 VBG pCO2 37.0 L VBG HCO3 21.4 VBG Total CO2 22.5 VBG O2 Sat (Calc) 81.6 H VBG Base Excess -3.4 L VBG Potassium 4.3 Sodium 128.0 L Chloride 95.0 L Glucose 102 Lactate 4.5 H* FiO2 21.0 Crit Value Called To Md celso morales Crit Value Called By Diomedes thomas Blood Gas Notified Time 1445 Potassium Carbon Dioxide Anion Gap BUN Creatinine Est GFR ( Amer) Est GFR (Non-Af Amer) Random Glucose Calcium Phosphorus Magnesium Total Bilirubin AST ALT Alkaline Phosphatase Lactate Dehydrogenase Total Creatine Kinase Troponin I NT-Pro-B Natriuret Pep Total Protein Albumin Globulin Albumin/Globulin Ratio Lipase Venous Blood Potassium 4.3 Urine Color Urine Appearance Urine pH Ur Specific [place] Urine Protein Urine Glucose (UA) Urine Ketones Urine Blood Urine Nitrate Urine Bilirubin Urine Urobilinogen Ur Leukocyte Esterase Urine RBC Urine WBC Ur Epithelial Cells Urine Bacteria 12/17/18 12/17/18 14:18 15:35 WBC RBC Hgb Hct MCV MCH MCHC RDW Plt Count MPV Neut % (Auto) Lymph % (Auto) [place] % (Auto) Eos % (Auto) Baso % (Auto) Lymph # (Auto) [place] # (Auto) Eos # (Auto) Baso # (Auto) Absolute Neuts (auto) PT INR APTT pO2 VBG pH VBG pCO2 VBG HCO3 VBG Total CO2 VBG O2 Sat (Calc) VBG Base Excess VBG Potassium Sodium 130 L Chloride 97 L Glucose Lactate FiO2 Crit Value Called To Crit Value Called By Blood Gas Notified Time Potassium 4.5 Carbon Dioxide 23 Anion Gap 15 BUN 28 H Creatinine 0.9 Est GFR ( Amer) > 60 Est GFR (Non-Af Amer) > 60 Random Glucose 106 Calcium 9.4 Phosphorus 3.5 Magnesium 1.8 Total Bilirubin 1.3 AST 71 H ALT 43 Alkaline Phosphatase 148 H Lactate Dehydrogenase 554 Total Creatine Kinase 58 Troponin I < 0.01 NT-Pro-B Natriuret Pep 1420 H Total Protein 5.4 L Albumin 2.9 L Globulin 2.5 Albumin/Globulin Ratio 1.2 Lipase 31 Venous Blood Potassium Urine Color Dark yellow Urine Appearance Sl cloudy Urine pH 6.0 Ur Specific [place] 1.025 Urine Protein Trace H Urine Glucose (UA) Negative Urine Ketones Trace H Urine Blood Negative Urine Nitrate Positive H Urine Bilirubin Small H Urine Urobilinogen 2.0 H Ur Leukocyte Esterase Negative Urine RBC None Urine WBC 5 - 10 H Ur Epithelial Cells 4 - 5 Urine Bacteria Few - Imaging and Cardiology CT scan - abdomen Status: Image reviewed by me, Report reviewed by me CT scan - chest Status: Image reviewed by me, Report reviewed by me US - abdomen Status: Image reviewed by me Assessment & Plan - Assessment and Plan (Free Text) Assessment: 78 y/o M w/ metastatic small cell lung cancer to the liver and CT concerning for acute cholecystitis. Plan: - Abd US w/ dilated CBD and irrgular GB wall -- likely Metastatic GB disease - no leukoystosis, Normal LFTs and T. Bili --> unlikely to be acute cholecystitis - elevated Lactate likely 2/2 liver cirrhosis - poor surgical candidate - f/u GI recs - no surgical intervention at this time Pt discussed w/ Dr. Ann Dela Cruz PGY3 <Ricardo Juarez - Last Filed: 12/18/18 19:38> Meds - Medications Medications: Current Medications Acetaminophen (Tylenol 325mg Tab) 650 mg PO Q4 PRN PRN Reason: Pain, Mild (1-3) Albumin Human (Albumin Human 25% (12.5 Gm/50 Ml)) 12.5 gm IV BID [facility] Stop: 12/19/18 18:01 Apixaban (Eliquis) 5 mg PO BID [facility]; Protocol Atenolol (Tenormin) 50 mg PO DAILY [facility] Last Admin: 12/18/18 09:24 Dose: 50 mg Digoxin (Lanoxin) 0.25 mg PO 1400 [facility] Last Admin: 12/18/18 17:23 Dose: 0.25 mg Sodium Chloride (Sodium Chloride 0.9%) 1,000 mls @ 50 mls/hr IV .Q20H GERDA Last Admin: 12/17/18 20:09 Dose: 50 mls/hr Meropenem (Merrem Iv 1 Gm Premix) 1 gm in 50 mls @ 100 mls/hr IVPB Q8 GER[facility]; Protocol Stop: 12/26/18 22:01 Last Admin: 12/18/18 15:09 Dose: Not Given Insulin Human Regular (Humulin R Low) 0 units SC ACHS [facility]; Protocol Last Admin: 12/18/18 17:24 Dose: Not Given Isosorbide Mononitrate (Imdur Er) 30 mg PO DAILY [facility] Last Admin: 12/18/18 09:24 Dose: 30 mg Pantoprazole Sodium (Protonix Ec Tab) 40 mg PO DAILY [facility] Last Admin: 12/18/18 09:25 Dose: 40 mg Spironolactone (Aldactone) 25 mg PO BID [facility] Tamsulosin HCl (Flomax) 0.4 mg PO DAILY [facility] Last Admin: 12/18/18 09:24 Dose: 0.4 mg Results - Vital Signs Recent Vital Signs: Last Vital Signs Temp 97.4 F L 12/18/18 08:03 Pulse 92 H 12/18/18 18:00 Resp 20 12/18/18 08:03 BP 119/79 12/18/18 08:03 Pulse Ox 97 12/18/18 08:03 - Labs Result Diagrams: 12/18/18 07:00 12/18/18 07:00 Labs: Laboratory Results - last 24 hr 12/17/18 12/17/18 12/17/18 19:20 22:11 22:15 WBC RBC Hgb Hct MCV MCH MCHC RDW Plt Count MPV Neut % (Auto) Lymph % (Auto) [place] % (Auto) Eos % (Auto) Baso % (Auto) Lymph # (Auto) [place] # (Auto) Eos # (Auto) Baso # (Auto) Absolute Neuts (auto) pO2 52 VBG pH 7.35 VBG pCO2 42.0 VBG HCO3 23.2 VBG Total CO2 24.5 VBG O2 Sat (Calc) 87.7 H VBG Base Excess -2.4 L VBG Potassium 4.4 Sodium 127.0 L Chloride 96.0 L Glucose 85 Lactate 3.3 H FiO2 21.0 Crit Value Called To Javier Crit Value Called By Atc Blood Gas Notified Time 2220 Potassium Carbon Dioxide Anion Gap BUN Creatinine Est GFR ( Amer) Est GFR (Non-Af Amer) POC Glucose (mg/dL) 87 Random Glucose Uric Acid Calcium Total Bilirubin AST ALT Alkaline Phosphatase Total Protein Albumin Globulin Albumin/Globulin Ratio Procalcitonin 0.12 L Venous Blood Potassium 4.4 Urine Osmolality Ur Random Sodium Fluid Source Digoxin 12/18/18 12/18/18 12/18/18 01:15 07:00 07:00 WBC 8.1 RBC 4.34 Hgb 14.2 Hct 40.4 L MCV 93.1 MCH 32.7 MCHC 35.1 RDW 15.7 H Plt Count 105 L MPV 9.9 Neut % (Auto) 76.6 H Lymph % (Auto) 12.3 L [place] % (Auto) 10.9 H Eos % (Auto) 0.2 L Baso % (Auto) 0.0 Lymph # (Auto) 1.0 L [place] # (Auto) 0.9 H Eos # (Auto) 0.0 Baso # (Auto) 0.00 Absolute Neuts (auto) 6.20 pO2 29 L VBG pH 7.36 VBG pCO2 42.0 VBG HCO3 23.7 VBG Total CO2 25.0 VBG O2 Sat (Calc) 54.7 VBG Base Excess -1.8 L VBG Potassium 4.5 Sodium 127.0 L 128 L Chloride 95.0 L 95 L Glucose 117 H Lactate 3.7 H FiO2 21.0 Crit Value Called To Erin evans rn 3rso Crit Value Called By [facility] Blood Gas Notified Time 200 Potassium 4.5 Carbon Dioxide 21 Anion Gap 17 BUN 28 H Creatinine 0.9 Est GFR ( Amer) > 60 Est GFR (Non-Af Amer) > 60 POC Glucose (mg/dL) Random Glucose 90 Uric Acid Calcium 9.1 Total Bilirubin 1.2 AST 79 H ALT 48 Alkaline Phosphatase 170 H Total Protein 4.9 L Albumin 2.7 L Globulin 2.3 Albumin/Globulin Ratio 1.2 Procalcitonin Venous Blood Potassium 4.5 Urine Osmolality Ur Random Sodium Fluid Source Digoxin 12/18/18 12/18/18 12/18/18 07:00 07:00 07:14 WBC RBC Hgb Hct MCV MCH MCHC RDW Plt Count MPV Neut % (Auto) Lymph % (Auto) [place] % (Auto) Eos % (Auto) Baso % (Auto) Lymph # (Auto) [place] # (Auto) Eos # (Auto) Baso # (Auto) Absolute Neuts (auto) pO2 VBG pH VBG pCO2 VBG HCO3 VBG Total CO2 VBG O2 Sat (Calc) VBG Base Excess VBG Potassium Sodium Chloride Glucose Lactate FiO2 Crit Value Called To Crit Value Called By Blood Gas Notified Time Potassium Carbon Dioxide Anion Gap BUN Creatinine Est GFR ( Amer) Est GFR (Non-Af Amer) POC Glucose (mg/dL) 107 Random Glucose Uric Acid 8.1 Calcium Total Bilirubin AST ALT Alkaline Phosphatase Total Protein Albumin Globulin Albumin/Globulin Ratio Procalcitonin Venous Blood Potassium Urine Osmolality Ur Random Sodium Fluid Source Digoxin 1.6 12/18/18 12/18/18 12/18/18 11:22 12:16 16:57 WBC RBC Hgb Hct MCV MCH MCHC RDW Plt Count MPV Neut % (Auto) Lymph % (Auto) [place] % (Auto) Eos % (Auto) Baso % (Auto) Lymph # (Auto) [place] # (Auto) Eos # (Auto) Baso # (Auto) Absolute Neuts (auto) pO2 VBG pH VBG pCO2 VBG HCO3 VBG Total CO2 VBG O2 Sat (Calc) VBG Base Excess VBG Potassium Sodium Chloride Glucose Lactate FiO2 Crit Value Called To Crit Value Called By Blood Gas Notified Time Potassium Carbon Dioxide Anion Gap BUN Creatinine Est GFR ( Amer) Est GFR (Non-Af Amer) POC Glucose (mg/dL) 134 H 108 Random Glucose Uric Acid Calcium Total Bilirubin AST ALT Alkaline Phosphatase Total Protein Albumin Globulin Albumin/Globulin Ratio Procalcitonin Venous Blood Potassium Urine Osmolality 773 Ur Random Sodium < 5 Fluid Source Digoxin 12/18/18 19:15 WBC RBC Hgb Hct MCV MCH MCHC RDW Plt Count MPV Neut % (Auto) Lymph % (Auto) [place] % (Auto) Eos % (Auto) Baso % (Auto) Lymph # (Auto) [place] # (Auto) Eos # (Auto) Baso # (Auto) Absolute Neuts (auto) pO2 VBG pH VBG pCO2 VBG HCO3 VBG Total CO2 VBG O2 Sat (Calc) VBG Base Excess VBG Potassium Sodium Chloride Glucose Lactate FiO2 Crit Value Called To Crit Value Called By Blood Gas Notified Time Potassium Carbon Dioxide Anion Gap BUN Creatinine Est GFR ( Amer) Est GFR (Non-Af Amer) POC Glucose (mg/dL) Random Glucose Uric Acid Calcium Total Bilirubin AST ALT Alkaline Phosphatase Total Protein Albumin Globulin Albumin/Globulin Ratio Procalcitonin Venous Blood Potassium Urine Osmolality Ur Random Sodium Fluid Source Peritoneal/ascites Digoxin Assessment & Plan - Assessment and Plan (Free Text) Plan: Patient was seen, evaluated and examined by me at the bedside. I agree with assessment and plan as stated in the resident's note.
[2018-12-17] MEDS: Sodium Chloride 0.9% 1,000 ML IV SCH (20:09)
[2018-12-17] MEDS ORDERED: Aztreonam 1 Gm in NS 100mL 100 ML IVPB SCH (22:00)
[2018-12-17] MEDS: Meropenem IV 1 gm in NS 1 GM/50 ML BAG IVPB SCH (22:17)
[2018-12-17] MEDS: Insulin Reg-LOW-Coverage SC SCH (22:17)
[2018-12-17 22:22] LABS: VENOUS BLOOD GAS BASE EXCESS -2.4 mmol/L (0.0-2.0); VENOUS BLOOD GAS PO2 52 mm/Hg (30-55); VENOUS BLOOD PH 7.35 (7.32-7.43)
[2018-12-18] MEDS ORDERED: Pneumococcal 23-Valent Vaccine IM ONE (00:11)
[2018-12-18 02:08] LABS: VENOUS BLOOD GAS BASE EXCESS -1.8 mmol/L (0.0-2.0); VENOUS BLOOD GAS PO2 29 mm/Hg (30-55); VENOUS BLOOD PH 7.36 (7.32-7.43)
--- NOTE | 2018-12-18 02:50 | HP ---
DATE OF EXAM: 12/17/[address] Pfeiffer, CHIEF COMPLAINT: Abdominal pain. HISTORY OF PRESENT ILLNESS: The patient is an 78-year-old male with known past history significant for stage IV , small cell CA of the lung, atrial fibrillation with ASCVD status post five stents, history of TIA, and increased swelling of his abdomen and scrotum for the past week getting worse with difficulty urinating. The patient is now being admitted for evaluation and treatment. ALLERGIES: PENICILLIN. MEDICATIONS: The patient's medicines include Prandin, Tylenol, digoxin, ezetimibe, Livalo, aspirin, Protonix, Imdur, Eliquis, tamsulosin, atenolol and tramadol p.r.n. 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 FAMILY HISTORY/SOCIAL HISTORY: Former smoker, quit 40 years ago. Social alcohol use. Denies illicit drug use. Otherwise, noncontributory. REVIEW OF SYSTEMS: A 12-point review of systems was negative to questions except as mentioned in history of present illness. OBJECTIVE/PHYSICAL EXAMINATION: VITAL SIGNS: Temperature 98, pulse 102, respirations 18, blood pressure 112/67, and pulse oximetry 95%. HEENT: Unremarkable. NECK: Supple. HEART: Tachy rate, regular rhythm, occasional ectopic beat. LUNGS: Clear. ABDOMEN: Distended with positive ascitic fluid wave? with scrotal edema noted. Minimal tenderness to gentle palpation. EXTREMITIES: Faint +1 edema of the feet bilaterally. NEUROLOGIC: Awake and alert. SKIN: Warm, dry, and clear. LABORATORY DATA: The patient's labs were done. White blood cell count of 8, hemoglobin 14.5, hematocrit 41.7, and platelet count of 106,000. His metabolic panel today shows sodium of 130, chloride of 97, BUN of 28 with a creatinine of 0.9; otherwise normal metabolic panel. AST of 71, alk phos of 148 with albumin of 2.9 and B-natriuretic peptide of 1420. Iron saturation is 41%. Alpha-fetoprotein was done on 12/08/2018 with a value of 59.7. His INR today is 1.85 with a PT of 20.5 and PTT of 29.7. His ABG showed a lactate value of 4.5; this is being addressed with antibiotics and Infectious Disease consult. Urine showed positive nitrites, small amount of bilirubin and trace of ketones. The patient did have a CT scan of the abdomen and pelvis done earlier today that was read as tumor progression in the liver, new abdominal and pelvic ascites, abnormal gallbladder consistent with gallbladder wall thickening, gall stones which appeared to be lodged in the gallbladder neck. Findings are suspicious for acute cholecystitis, residual retroperitoneal mesenteric adenopathy, new edema and anasarca, additional benign incidental findings, bilateral simple renal cysts, no hydronephrosis. Bladder ultrasound was done today, and it was read as pre-void urinary bladder is 98.4 mL, post-void urinary bladder with no postvoid residual, bilateral ureteral jets were not identified, enlarged prostate gland. CT scan of the chest was done today, and it was read as no acute findings related to clinical presentation, trace pleural effusion, small pericardial effusion, pleural manifestation of prior asbestos exposure. EKG was done earlier today, it was read as atrial fibrillation with rapid ventricular response, possible septal infarct age undermined, ST-T wave abnormalities; abnormal EKG. Also, an abdominal ultrasound was done, and it has not been read yet. 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 PLAN: After conversation with Dr. Pfeiffer is to admit to remote telemetry if possible, otherwise to the oncology floor. We will ask for consult with Dr. Juarez, surgeon; Dr. Montes, Gastrointestinal; Dr. Bernard may, Vascular; Dr. Phan, Infectious Disease; Dr. Hurd, Renal, for fluid and electrolyte management, also to rule out hepatic vein thrombosis versus acute cholecystitis. We will hold his Eliquis and aspirin for now, give aztreonam one dose as THE PATIENT IS ALLERGIC TO PENICILLIN with fingerstick blood sugars to coverage. We will do digoxin level and restart digoxin in the morning with low-flow IV fluids at 50 mL an hour of normal saline. This is a complex patient with a comprehensive medically necessary and appropriate visit carried out in excess of 90 minutes as the patient was in our office earlier today with followup admission to the hospital as listed above with the patient and his 's questions answered to their satisfaction along with other consultants spoken to via telephone or text for his plan of care. Yasir Briones MD
[2018-12-18] MEDS: Meropenem IV 1 gm in NS 1 GM/50 ML BAG IVPB SCH ×3 (05:28→22:12)
[2018-12-18 07:13] LABS: EOS % 0.2 % (1.5-5.0); HEMOGLOBIN 14.2 g/dL (14.0-18.0); LYMPH % 12.3 % (22.0-35.0); MEAN CELL VOLUME 93.1 fl (80.0-105.0); MEAN CORPUSCULAR HEMOGLOBIN 32.7 pg (25.0-35.0); MEAN CORPUSCULAR HGB CONC 35.1 g/dl (31.0-37.0); MEAN PLATELET VOLUME 9.9 fl (7.0-11.0); MONO # 0.9 (0.1-0.6); MONO % 10.9 % (1.0-6.0); RBC 4.34 10^6/uL (3.5-6.1); RED CELL DISTRIBUTION WIDTH 15.7 % (11.5-14.5); WHITE BLOOD COUNT 8.1 10^3/uL (4.5-11.0)
[2018-12-18 07:23] LABS: ALB/GLOB RATIO 1.2 (1.1-1.8); ALBUMIN 2.7 g/dL (3.0-4.8); ALT/SGPT 48 U/L (7-56); AST/SGOT 79 U/L (17-59); BLOOD UREA NITROGEN 28 mg/dL (7-21); CALCIUM 9.1 mg/dL (8.4-10.5); GFR NON-AFRICAN AMERICAN > 60
--- NOTE | 2018-12-18 08:01 | CP.PCM.CON ---
<David King - Last Filed: 12/18/18 11:20> History of Present Illness - History of Present Illness History of Present Illness: David King Internal Medicine Resident- Consult Note on Behalf of Dr. 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 GI team was consulted for management/recommendations regarding potential cholecystitis found on imaging. Patient seen and examined at bedside. No acute events since admission. States abdominal pain began several weeks ago with no specific provoking event. The pain originates and remains localized to the right and left lower quadrants. Pain is exacerbated when lying flat and is reduced when sitting upright. Admits to decreased appetite. Also admits to difficulty urinating secondary to swollen scrotum. Denies nausea, vomiting, diarrhea, constipation, bright red blood per rectum, and change in stool caliber. Further denies fevers, chills, headache, visual/auditory changes, chest pain, SOB, and focal weakness. 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, liver mass, CAD/AR s/p 5 stents, renal cyst, hepatitis C (treated ), abdominal hernia, TIA, HTN, HLD, a-fib on eliquis, BPH, and GERD Past Surgical History: port placement, liver and lymph node biopsy Allergies: PCN Social History: Former smoker, quit 40 yrs ago; Social EtOH use; Denied illicit drug use Family History: AR/CAD Meds: as per MAR Physical Examination: - Constitutional Appears: Non-toxic, No Acute Distress - Head Exam Head Exam: ATRAUMATIC, NORMOCEPHALIC - Eye Exam Eye Exam: EOMI, Normal appearance - ENT Exam ENT Exam: Mucous Membranes Moist - Neck Exam Neck Exam: Full ROM - Respiratory Exam Respiratory Exam: Clear to Auscultation Bilateral, NORMAL BREATHING PATTERN Additional comments: Right chest wall port noted, no signs of infection of the surrounding soft tissues - Cardiovascular Exam Cardiovascular Exam: REGULAR RHYTHM, +S1, +S2 - GI/Abdominal Exam GI & Abdominal Exam: Distended (ascites), Soft. 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 Ascities Gallbladder wall edema- likely secondary to low albumin state Cholelithiasis Neuroendocrine small cell cancer of the lung with liver mass GERD Hx of Hep C- resolved Imaging Reviewed: 12/17/18 Abdomen/Pelvis CT with oral and IV contrast: 1. Tumor progression in the liver. 2. New abdominal and pelvic ascites. 3. Abnormal gallbladder consisting of gallbladder wall thickening and gallstones which appear to be lodged in the gallbladder neck. The findings are suspicious for acute cholecystitis. 4. Residual retroperitoneal, mesenteric adenopathy. 5. New edema and anasarca. 12/17/[address] without contrast: 1. No acute findings related to/ accounting for the clinical presentation. 2. Trace pleural effusions. 3. Small pericardial effusion. 4. Pleural manifestations of prior asbestos exposure. 12/17/2018 Abdominal Ultrasound: Heterogeneous liver with the hepatic steatosis and/or other hepatic parenchymal pathology. A dominant the left hepatic lobe mass is noted-this has been present and referenced on prior PET-CT studies- neoplastic origin is inferred-recurrence is possible based on recent interval change referenced in most recent PET-CT study. Gallbladder is not particularly distended-the wall is thickened with pericholecystic fluid. Gallbladder wall edema present. Gallstones present. No positive ultrasound Avalos sign. Ascites probably in part contributing to the gallbladder wall thickening and pericholecystic fluid. No gross dilated ducts seen. Multiple bilateral renal cysts-no hydronephrosis. - MRCP without contrast ordered and pending - recommend clear liquid diet - continue meropenem 1gram IV q12 - continue IVF NS @ 50cc/hr - continue protonix 40mg PO daily Patient case discussed with and plan approved by attending physician, Dr. oMntes. Past Patient History - Infectious Disease Hx of Infectious Diseases: None - Past Social History Smoking Status: Former Smoker - CARDIAC Hx Cardiac Disorders: Yes Hx Hypertension: Yes - PULMONARY Hx Respiratory Disorders: No - NEUROLOGICAL Hx Neurological Disorder: Yes Hx Transient Ischemic Attacks (TIA): Yes - HEENT Hx HEENT Problems: No - RENAL Hx Chronic Kidney Disease: No - ENDOCRINE/METABOLIC Hx Endocrine Disorders: No - HEMATOLOGICAL/ONCOLOGICAL Hx Cancer: Yes (SCLC) - INTEGUMENTARY Hx Dermatological Problems: No - MUSCULOSKELETAL/RHEUMATOLOGICAL Hx Falls: No - PSYCHIATRIC Hx Emotional Abuse: No Hx Physical Abuse: No - SURGICAL HISTORY Other/Comment: HERNIA surgery - ANESTHESIA Hx Anesthesia Reactions: No Hx Malignant Hyperthermia: No Meds Allergies/Adverse Reactions: Allergies Allergy/AdvReac Type Severity Reaction Status Date / Time Penicillins Allergy Severe RASH Verified 06/06/18 10:39 - Medications Medications: Current Medications Acetaminophen (Tylenol 325mg Tab) 650 mg PO Q4 PRN PRN Reason: Pain, Mild (1-3) Apixaban (Eliquis) 5 mg PO BID [facility]; Protocol Atenolol (Tenormin) 50 mg PO DAILY [facility] Digoxin (Lanoxin Elixir Soln) 0.25 mg PO 1400 [facility] Sodium Chloride (Sodium Chloride 0.9%) 1,000 mls @ 50 mls/hr IV .Q20H [facility] Last Admin: 12/17/18 20:09 Dose: 50 mls/hr Meropenem (Merrem Iv 1 Gm Premix) 1 gm in 50 mls @ 100 mls/hr IVPB Q8 [facility]; Protocol Stop: 12/26/18 22:01 Last Admin: 12/18/18 05:28 Dose: 100 mls/hr Insulin Human Regular (Humulin R Low) 0 units SC ACHS [facility]; Protocol Last Admin: 12/17/18 22:17 Dose: Not Given Isosorbide Mononitrate (Imdur Er) 30 mg PO DAILY [facility] Pantoprazole Sodium (Protonix Ec Tab) 40 mg PO DAILY [facility] Tamsulosin HCl (Flomax) 0.4 mg PO DAILY [facility] Results - Vital Signs Recent Vital Signs: Last Vital Signs Temp 97.7 F 12/18/18 00:00 Pulse 106 H 12/18/18 06:00 Resp 20 12/18/18 00:00 BP 95/60 L 12/18/18 00:00 Pulse Ox 96 12/18/18 00:00 - Labs Result Diagrams: 12/18/18 07:00 12/18/18 07:00 Labs: Laboratory Results - last 24 hr 12/17/18 12/17/18 12/17/18 14:16 14:18 14:18 WBC 8.0 D RBC 4.48 Hgb 14.5 D Hct 41.7 L MCV 93.1 D MCH 32.4 MCHC 34.8 RDW 15.5 H Plt Count 106 L MPV 9.5 Neut % (Auto) 79.3 H Lymph % (Auto) 11.3 L Waldo % (Auto) 9.3 H Eos % (Auto) 0.1 L Baso % (Auto) 0.0 Lymph # (Auto) 0.9 L Waldo # (Auto) 0.7 H Eos # (Auto) 0.0 Baso # (Auto) 0.00 Absolute Neuts (auto) 6.31 PT 20.5 H INR 1.85 APTT 29.7 pO2 43 VBG pH 7.37 VBG pCO2 37.0 L VBG HCO3 21.4 VBG Total CO2 22.5 VBG O2 Sat (Calc) 81.6 H VBG Base Excess -3.4 L VBG Potassium 4.3 Sodium 128.0 L Chloride 95.0 L Glucose 102 Lactate 4.5 H* FiO2 21.0 Crit Value Called To Md celso morales Crit Value Called By Diomedes thomas Blood Gas Notified Time 1445 Potassium Carbon Dioxide Anion Gap BUN Creatinine Est GFR ( Amer) Est GFR (Non-Af Amer) POC Glucose (mg/dL) Random Glucose Calcium Phosphorus Magnesium Total Bilirubin AST ALT Alkaline Phosphatase Lactate Dehydrogenase Total Creatine Kinase Troponin I NT-Pro-B Natriuret Pep Total Protein Albumin Globulin Albumin/Globulin Ratio Lipase Venous Blood Potassium 4.3 Urine Color Urine Appearance Urine pH Ur Specific [place] Urine Protein Urine Glucose (UA) Urine Ketones Urine Blood Urine Nitrate Urine Bilirubin Urine Urobilinogen Ur Leukocyte Esterase Urine RBC Urine WBC Ur Epithelial Cells Urine Bacteria Digoxin 12/17/18 12/17/18 12/17/18 14:18 15:35 22:11 WBC RBC Hgb Hct MCV MCH MCHC RDW Plt Count MPV Neut % (Auto) Lymph % (Auto) Waldo % (Auto) Eos % (Auto) Baso % (Auto) Lymph # (Auto) Waldo # (Auto) Eos # (Auto) Baso # (Auto) Absolute Neuts (auto) PT INR APTT pO2 52 VBG pH 7.35 VBG pCO2 42.0 VBG HCO3 23.2 VBG Total CO2 24.5 VBG O2 Sat (Calc) 87.7 H VBG Base Excess -2.4 L VBG Potassium 4.4 Sodium 130 L 127.0 L Chloride 97 L 96.0 L Glucose 85 Lactate 3.3 H FiO2 21.0 Crit Value Called To Javier Crit Value Called By Atc Blood Gas Notified Time 2220 Potassium 4.5 Carbon Dioxide 23 Anion Gap 15 BUN 28 H Creatinine 0.9 Est GFR ( Amer) > 60 Est GFR (Non-Af Amer) > 60 POC Glucose (mg/dL) Random Glucose 106 Calcium 9.4 Phosphorus 3.5 Magnesium 1.8 Total Bilirubin 1.3 AST 71 H ALT 43 Alkaline Phosphatase 148 H Lactate Dehydrogenase 554 Total Creatine Kinase 58 Troponin I < 0.01 NT-Pro-B Natriuret Pep 1420 H Total Protein 5.4 L Albumin 2.9 L Globulin 2.5 Albumin/Globulin Ratio 1.2 Lipase 31 Venous Blood Potassium 4.4 Urine Color Dark yellow Urine Appearance Sl cloudy Urine pH 6.0 Ur Specific [place] 1.025 Urine Protein Trace H Urine Glucose (UA) Negative Urine Ketones Trace H Urine Blood Negative Urine Nitrate Positive H Urine Bilirubin Small H Urine Urobilinogen 2.0 H Ur Leukocyte Esterase Negative Urine RBC None Urine WBC 5 - 10 H Ur Epithelial Cells 4 - 5 Urine Bacteria Few Digoxin 12/17/18 12/18/18 12/18/18 22:15 01:15 07:00 WBC 8.1 RBC 4.34 Hgb 14.2 Hct 40.4 L MCV 93.1 MCH 32.7 MCHC 35.1 RDW 15.7 H Plt Count 105 L MPV 9.9 Neut % (Auto) 76.6 H Lymph % (Auto) 12.3 L Waldo % (Auto) 10.9 H Eos % (Auto) 0.2 L Baso % (Auto) 0.0 Lymph # (Auto) 1.0 L Waldo # (Auto) 0.9 H Eos # (Auto) 0.0 Baso # (Auto) 0.00 Absolute Neuts (auto) 6.20 PT INR APTT pO2 29 L VBG pH 7.36 VBG pCO2 42.0 VBG HCO3 23.7 VBG Total CO2 25.0 VBG O2 Sat (Calc) 54.7 VBG Base Excess -1.8 L VBG Potassium 4.5 Sodium 127.0 L Chloride 95.0 L Glucose 117 H Lactate 3.7 H FiO2 21.0 Crit Value Called To Erin evans rn 3rso Crit Value Called By [facility] Blood Gas Notified Time 200 Potassium Carbon Dioxide Anion Gap BUN Creatinine Est GFR ( Amer) Est GFR (Non-Af Amer) POC Glucose (mg/dL) 87 Random Glucose Calcium Phosphorus Magnesium Total Bilirubin AST ALT Alkaline Phosphatase Lactate Dehydrogenase Total Creatine Kinase Troponin I NT-Pro-B Natriuret Pep Total Protein Albumin Globulin Albumin/Globulin Ratio Lipase Venous Blood Potassium 4.5 Urine Color Urine Appearance Urine pH Ur Specific [place] Urine Protein Urine Glucose (UA) Urine Ketones Urine Blood Urine Nitrate Urine Bilirubin Urine Urobilinogen Ur Leukocyte Esterase Urine RBC Urine WBC Ur Epithelial Cells Urine Bacteria Digoxin 12/18/18 12/18/18 12/18/18 07:00 07:00 07:14 WBC RBC Hgb Hct MCV MCH MCHC RDW Plt Count MPV Neut % (Auto) Lymph % (Auto) Waldo % (Auto) Eos % (Auto) Baso % (Auto) Lymph # (Auto) Waldo # (Auto) Eos # (Auto) Baso # (Auto) Absolute Neuts (auto) PT INR APTT pO2 VBG pH VBG pCO2 VBG HCO3 VBG Total CO2 VBG O2 Sat (Calc) VBG Base Excess VBG Potassium Sodium 128 L Chloride 95 L Glucose Lactate FiO2 Crit Value Called To Crit Value Called By Blood Gas Notified Time Potassium 4.5 Carbon Dioxide 21 Anion Gap 17 BUN 28 H Creatinine 0.9 Est GFR ( Amer) > 60 Est GFR (Non-Af Amer) > 60 POC Glucose (mg/dL) 107 Random Glucose 90 Calcium 9.1 Phosphorus Magnesium Total Bilirubin 1.2 AST 79 H ALT 48 Alkaline Phosphatase 170 H Lactate Dehydrogenase Total Creatine Kinase Troponin I NT-Pro-B Natriuret Pep Total Protein 4.9 L Albumin 2.7 L Globulin 2.3 Albumin/Globulin Ratio 1.2 Lipase Venous Blood Potassium Urine Color Urine Appearance Urine pH Ur Specific [place] Urine Protein Urine Glucose (UA) Urine Ketones Urine Blood Urine Nitrate Urine Bilirubin Urine Urobilinogen Ur Leukocyte Esterase Urine RBC Urine WBC Ur Epithelial Cells Urine Bacteria Digoxin 1.6 <[email or web address] licea V - Last Filed: 12/18/18 21:34> Meds - Medications Medications: Current Medications Acetaminophen (Tylenol 325mg Tab) 650 mg PO Q4 PRN PRN Reason: Pain, Mild (1-3) Last Admin: 12/18/18 20:11 Dose: 650 mg Albumin Human (Albumin Human 25% (12.5 Gm/50 Ml)) 12.5 gm IV BID [facility] Stop: 12/19/18 18:01 Last Admin: 12/18/18 20:52 Dose: 12.5 gm Apixaban (Eliquis) 5 mg PO BID [facility]; Protocol Atenolol (Tenormin) 50 mg PO DAILY [facility] Last Admin: 12/18/18 09:24 Dose: 50 mg Digoxin (Lanoxin) 0.25 mg PO 1400 [facility] Last Admin: 12/18/18 17:23 Dose: 0.25 mg Sodium Chloride (Sodium Chloride 0.9%) 1,000 mls @ 50 mls/hr IV .Q20H [facility] Last Admin: 12/17/18 20:09 Dose: 50 mls/hr Meropenem (Merrem Iv 1 Gm Premix) 1 gm in 50 mls @ 100 mls/hr IVPB Q8 [facility]; Protocol Stop: 12/26/18 22:01 Last Admin: 12/18/18 15:09 Dose: Not Given Insulin Human Regular (Humulin R Low) 0 units SC ACHS [facility]; Protocol Last Admin: 12/18/18 17:24 Dose: Not Given Isosorbide Mononitrate (Imdur Er) 30 mg PO DAILY [facility] Last Admin: 12/18/18 09:24 Dose: 30 mg Pantoprazole Sodium (Protonix Ec Tab) 40 mg PO DAILY [facility] Last Admin: 12/18/18 09:25 Dose: 40 mg Spironolactone (Aldactone) 25 mg PO BID [facility] Tamsulosin HCl (Flomax) 0.4 mg PO DAILY [facility] Last Admin: 12/18/18 09:24 Dose: 0.4 mg Results - Vital Signs Recent Vital Signs: Last Vital Signs Temp 97.4 F L 12/18/18 08:03 Pulse 92 H 12/18/18 18:00 Resp 20 12/18/18 08:03 BP 119/79 12/18/18 08:03 Pulse Ox 97 12/18/18 08:03 - Labs Result Diagrams: 12/18/18 07:00 12/18/18 07:00 Labs: Laboratory Results - last 24 hr 12/17/18 12/17/18 12/17/18 19:20 22:11 22:15 WBC RBC Hgb Hct MCV MCH MCHC RDW Plt Count MPV Neut % (Auto) Lymph % (Auto) Waldo % (Auto) Eos % (Auto) Baso % (Auto) Lymph # (Auto) Waldo # (Auto) Eos # (Auto) Baso # (Auto) Absolute Neuts (auto) pO2 52 VBG pH 7.35 VBG pCO2 42.0 VBG HCO3 23.2 VBG Total CO2 24.5 VBG O2 Sat (Calc) 87.7 H VBG Base Excess -2.4 L VBG Potassium 4.4 Sodium 127.0 L Chloride 96.0 L Glucose 85 Lactate 3.3 H FiO2 21.0 Crit Value Called To Javier Crit Value Called By Atc Blood Gas Notified Time 2220 Potassium Carbon Dioxide Anion Gap BUN Creatinine Est GFR ( Amer) Est GFR (Non-Af Amer) POC Glucose (mg/dL) 87 Random Glucose Uric Acid Calcium Total Bilirubin AST ALT Alkaline Phosphatase Total Protein Albumin Globulin Albumin/Globulin Ratio Procalcitonin 0.12 L Venous Blood Potassium 4.4 Urine Osmolality Ur Random Sodium Fluid Source Fluid Appearance Fluid WBC Fluid RBC Fluid Tot Cell Count Fluid Mononuclear Cell Fl Polymorphonucl Cell Fluid Comment Digoxin 12/18/18 12/18/18 12/18/18 01:15 07:00 07:00 WBC 8.1 RBC 4.34 Hgb 14.2 Hct 40.4 L MCV 93.1 MCH 32.7 MCHC 35.1 RDW 15.7 H Plt Count 105 L MPV 9.9 Neut % (Auto) 76.6 H Lymph % (Auto) 12.3 L Waldo % (Auto) 10.9 H Eos % (Auto) 0.2 L Baso % (Auto) 0.0 Lymph # (Auto) 1.0 L Waldo # (Auto) 0.9 H Eos # (Auto) 0.0 Baso # (Auto) 0.00 Absolute Neuts (auto) 6.20 pO2 29 L VBG pH 7.36 VBG pCO2 42.0 VBG HCO3 23.7 VBG Total CO2 25.0 VBG O2 Sat (Calc) 54.7 VBG Base Excess -1.8 L VBG Potassium 4.5 Sodium 127.0 L 128 L Chloride 95.0 L 95 L Glucose 117 H Lactate 3.7 H FiO2 21.0 Crit Value Called To Erin evans rn 3rso Crit Value Called By [facility] Blood Gas Notified Time 200 Potassium 4.5 Carbon Dioxide 21 Anion Gap 17 BUN 28 H Creatinine 0.9 Est GFR ( Amer) > 60 Est GFR (Non-Af Amer) > 60 POC Glucose (mg/dL) Random Glucose 90 Uric Acid Calcium 9.1 Total Bilirubin 1.2 AST 79 H ALT 48 Alkaline Phosphatase 170 H Total Protein 4.9 L Albumin 2.7 L Globulin 2.3 Albumin/Globulin Ratio 1.2 Procalcitonin Venous Blood Potassium 4.5 Urine Osmolality Ur Random Sodium Fluid Source Fluid Appearance Fluid WBC Fluid RBC Fluid Tot Cell Count Fluid Mononuclear Cell Fl Polymorphonucl Cell Fluid Comment Digoxin 12/18/18 12/18/18 12/18/18 07:00 07:00 07:14 WBC RBC Hgb Hct MCV MCH MCHC RDW Plt Count MPV Neut % (Auto) Lymph % (Auto) Waldo % (Auto) Eos % (Auto) Baso % (Auto) Lymph # (Auto) Waldo # (Auto) Eos # (Auto) Baso # (Auto) Absolute Neuts (auto) pO2 VBG pH VBG pCO2 VBG HCO3 VBG Total CO2 VBG O2 Sat (Calc) VBG Base Excess VBG Potassium Sodium Chloride Glucose Lactate FiO2 Crit Value Called To Crit Value Called By Blood Gas Notified Time Potassium Carbon Dioxide Anion Gap BUN Creatinine Est GFR ( Amer) Est GFR (Non-Af Amer) POC Glucose (mg/dL) 107 Random Glucose Uric Acid 8.1 Calcium Total Bilirubin AST ALT Alkaline Phosphatase Total Protein Albumin Globulin Albumin/Globulin Ratio Procalcitonin Venous Blood Potassium Urine Osmolality Ur Random Sodium Fluid Source Fluid Appearance Fluid WBC Fluid RBC Fluid Tot Cell Count Fluid Mononuclear Cell Fl Polymorphonucl Cell Fluid Comment Digoxin 1.6 12/18/18 12/18/18 12/18/18 11:22 12:16 16:57 WBC RBC Hgb Hct MCV MCH MCHC RDW Plt Count MPV Neut % (Auto) Lymph % (Auto) Waldo % (Auto) Eos % (Auto) Baso % (Auto) Lymph # (Auto) Waldo # (Auto) Eos # (Auto) Baso # (Auto) Absolute Neuts (auto) pO2 VBG pH VBG pCO2 VBG HCO3 VBG Total CO2 VBG O2 Sat (Calc) VBG Base Excess VBG Potassium Sodium Chloride Glucose Lactate FiO2 Crit Value Called To Crit Value Called By Blood Gas Notified Time Potassium Carbon Dioxide Anion Gap BUN Creatinine Est GFR ( Amer) Est GFR (Non-Af Amer) POC Glucose (mg/dL) 134 H 108 Random Glucose Uric Acid Calcium Total Bilirubin AST ALT Alkaline Phosphatase Total Protein Albumin Globulin Albumin/Globulin Ratio Procalcitonin Venous Blood Potassium Urine Osmolality 773 Ur Random Sodium < 5 Fluid Source Fluid Appearance Fluid WBC Fluid RBC Fluid Tot Cell Count Fluid Mononuclear Cell Fl Polymorphonucl Cell Fluid Comment Digoxin 12/18/18 19:15 WBC RBC Hgb Hct MCV MCH MCHC RDW Plt Count MPV Neut % (Auto) Lymph % (Auto) Waldo % (Auto) Eos % (Auto) Baso % (Auto) Lymph # (Auto) Waldo # (Auto) Eos # (Auto) Baso # (Auto) Absolute Neuts (auto) pO2 VBG pH VBG pCO2 VBG HCO3 VBG Total CO2 VBG O2 Sat (Calc) VBG Base Excess VBG Potassium Sodium Chloride Glucose Lactate FiO2 Crit Value Called To Crit Value Called By Blood Gas Notified Time Potassium Carbon Dioxide Anion Gap BUN Creatinine Est GFR ( Amer) Est GFR (Non-Af Amer) POC Glucose (mg/dL) Random Glucose Uric Acid Calcium Total Bilirubin AST ALT Alkaline Phosphatase Total Protein Albumin Globulin Albumin/Globulin Ratio Procalcitonin Venous Blood Potassium Urine Osmolality Ur Random Sodium Fluid Source Peritoneal/ascites Fluid Appearance Turbid Fluid WBC 737.0 H Fluid RBC 58785.0 H Fluid Tot Cell Count 100 H Fluid Mononuclear Cell 51.4 H Fl Polymorphonucl Cell 48.6 H Fluid Comment Light red Digoxin Attending/Attestation - Attestation I have personally seen and examined this patient.: Yes I have fully participated in the care of the patient.: Yes I have reviewed all pertinent clinical information: Yes Notes (Text): This patient was seen and evaluated along with the medical record consultant earlier. This is an addendum to the GI consultation report dictated by the resident. Thi s this 78-year-old patient with a metastatic small cell carcinoma had abdominal discomfort. Admitted with a leg swelling. Patient also notices abdominal distention. Multiple hepatic mets noticed. Gallbladder wall was thickened with a stone. Cystic duct remains okay. Patient This patient was seen and evaluated along with the medical record consultant earlier. This is an addendum to the GI consultation report dictated by the resident. Discussed with the patient and also family members were at the bedside. Metastatic small cell carcinoma liver lesions followed by GI rule out cholecystitis" albuminemia could be the contributing factor for thickened gallbladder wall .However patient has some tenderness and gallstones. Discussed with Dr. Mclaughlin. Requested for MRI with MRCP to further evaluate. Clear liquid diet has been ordered. Continue IV antibiotics 12/18/18 21:12
[2018-12-18] MEDS: Insulin Reg-LOW-Coverage SC SCH ×3 (08:55→17:24)
--- NOTE | 2018-12-18 08:55 | CP.PCM.PN ---
<Brenda Cortés - Last Filed: 12/18/18 13:32> Subjective - Date & Time of Evaluation Date of Evaluation: 12/18/18 Time of Evaluation: 08:51 - Subjective Subjective: PGY1 General Surgery Progress Note Dr. Juarez Patient seen and evaluated at bedside this morning. No acute events overnight. No new complaints. Patient denies fever, chills, nausea, vomiting, dysuria, chest pain, shortness of breath, and/or abdominal pain. Objective - Vital Signs/Intake and Output Vital Signs (last 24 hours): Temp Pulse Resp BP Pulse Ox 97.4 F L 102 H 20 119/79 97 12/18/18 08:03 12/18/18 08:03 12/18/18 08:03 12/18/18 08:03 12/18/18 08:03 Intake and Output: 12/18/18 12/18/18 06:59 18:59 Intake Total 820 Output Total 200 Balance 620 - Medications Medications: Current Medications Acetaminophen (Tylenol 325mg Tab) 650 mg PO Q4 PRN PRN Reason: Pain, Mild (1-3) Apixaban (Eliquis) 5 mg PO BID [facility]; Protocol Atenolol (Tenormin) 50 mg PO DAILY [facility] Digoxin (Lanoxin Elixir Soln) 0.25 mg PO 1400 [facility] Sodium Chloride (Sodium Chloride 0.9%) 1,000 mls @ 50 mls/hr IV .Q20H [facility] Last Admin: 12/17/18 20:09 Dose: 50 mls/hr Meropenem (Merrem Iv 1 Gm Premix) 1 gm in 50 mls @ 100 mls/hr IVPB Q8 [facility]; Protocol Stop: 12/26/18 22:01 Last Admin: 12/18/18 05:28 Dose: 100 mls/hr Insulin Human Regular (Humulin R Low) 0 units SC ACHS [facility]; Protocol Last Admin: 12/17/18 22:17 Dose: Not Given Isosorbide Mononitrate (Imdur Er) 30 mg PO DAILY [facility] Pantoprazole Sodium (Protonix Ec Tab) 40 mg PO DAILY [facility] Tamsulosin HCl (Flomax) 0.4 mg PO DAILY [facility] - Labs Labs: 12/18/18 07:00 12/18/18 07:00 PT 20.5 SECONDS (9.4-12.5) H 12/17/18 14:18 INR 1.85 12/17/18 14:18 APTT 29.7 Seconds (26.9-38.3) 12/17/18 14:18 - Additional Findings Additional findings: - Constitutional Appears: Non-toxic, No Acute Distress - Head Exam Head Exam: NORMAL INSPECTION - Eye Exam Eye Exam: Normal appearance. absent: Scleral icterus - ENT Exam ENT Exam: Mucous Membranes Moist - Respiratory Exam Respiratory Exam: NORMAL BREATHING PATTERN. absent: Accessory Muscle Use, Respiratory Distress - Cardiovascular Exam Cardiovascular Exam: absent: Bradycardia, Tachycardia - GI/Abdominal Exam GI & Abdominal Exam: Distended (ascites), Soft. absent: Firm, Guarding, Rebound, Rigid, Tenderness - Extremities Exam Extremities exam: Positive for: normal inspection. 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 Plan: - Patient remains afebrile; no leukoystosis - Abd US w/ dilated CBD and irrgular GB wall -- likely Metastatic GB disease - LFTs and T. Bili unremarkable; unlikely to be acute cholecystitis - Elevated Lactate likely 2/2 liver cirrhosis - Poor surgical candidate - Follow-up GI recs - No surgical intervention at this time - Further recommendations per Dr. Ann Cortés PGY1 <Ricardo Juarez - Last Filed: 12/18/18 19:36> Objective - Vital Signs/Intake and Output Vital Signs (last 24 hours): Temp Pulse Resp BP Pulse Ox 97.4 F L 92 H 20 119/79 97 12/18/18 08:03 12/18/18 18:00 12/18/18 08:03 12/18/18 08:03 12/18/18 08:03 - Medications Medications: Current Medications Acetaminophen (Tylenol 325mg Tab) 650 mg PO Q4 PRN PRN Reason: Pain, Mild (1-3) Albumin Human (Albumin Human 25% (12.5 Gm/50 Ml)) 12.5 gm IV BID [facility] Stop: 12/19/18 18:01 Apixaban (Eliquis) 5 mg PO BID [facility]; Protocol Atenolol (Tenormin) 50 mg PO DAILY [facility] Last Admin: 12/18/18 09:24 Dose: 50 mg Digoxin (Lanoxin) 0.25 mg PO 1400 [facility] Last Admin: 12/18/18 17:23 Dose: 0.25 mg Sodium Chloride (Sodium Chloride 0.9%) 1,000 mls @ 50 mls/hr IV .Q20H [facility] Last Admin: 12/17/18 20:09 Dose: 50 mls/hr Meropenem (Merrem Iv 1 Gm Premix) 1 gm in 50 mls @ 100 mls/hr IVPB Q8 [facility]; Protocol Stop: 12/26/18 22:01 Last Admin: 12/18/18 15:09 Dose: Not Given Insulin Human Regular (Humulin R Low) 0 units SC ACHS [facility]; Protocol Last Admin: 12/18/18 17:24 Dose: Not Given Isosorbide Mononitrate (Imdur Er) 30 mg PO DAILY [facility] Last Admin: 12/18/18 09:24 Dose: 30 mg Pantoprazole Sodium (Protonix Ec Tab) 40 mg PO DAILY [facility] Last Admin: 12/18/18 09:25 Dose: 40 mg Spironolactone (Aldactone) 25 mg PO BID [facility] Tamsulosin HCl (Flomax) 0.4 mg PO DAILY [facility] Last Admin: 12/18/18 09:24 Dose: 0.4 mg - Labs Labs: 12/18/18 07:00 12/18/18 07:00 PT 20.5 SECONDS (9.4-12.5) H 12/17/18 14:18 INR 1.85 12/17/18 14:18 APTT 29.7 Seconds (26.9-38.3) 12/17/18 14:18 Assessment and Plan - Assessment and Plan (Free Text) Plan: Patient was seen, evaluated and examined by me at the bedside. I agree with asse ssment and plan as stated in the resident's note.
--- NOTE | 2018-12-18 09:16 | US ---
Date of service: 12/17/2018 HISTORY: possible acute cholecystitis seen on CT today COMPARISON: PET-CT 09/01/2018 TECHNIQUE: Sonographic evaluation of the abdomen. FINDINGS: LIVER: Measures 16.15 cm. Diffuse increased echogenicity of the liver parenchyma. A heterogeneous left hepatic lobe mass measuring 3.3 x 2.5 x 3.4 cm in size is present. Patient has a known left hepatic mass inferred as neoplastic-mention of prior hepatocellular carcinoma and prior chemo embolization for that is made. Prior PET CT most recent report above reports prior interval increase in size concerning for possible tumor recurrence. Clinical correlation here needed. There may be additional lesions in the liver less conspicuous. No intrahepatic bile duct dilatation. GALLBLADDER: Multiple gallstones present no positive ultrasound Avalos sign elicited. Gallbladder wall edema present and thickening measuring 10.1 mm. COMMON BILE DUCT: Measures visualization of the common bile duct somewhat problematic it is estimated to be 8.4 mm. Consider rechecking this per available images. PANCREAS: Limited evaluation. RIGHT KIDNEY: Measures 10.6 x 5.4 x 5.4 a midpole right renal cyst measuring 3.4 by 2.6 x 2.8 cm is present. Another cyst measuring 1.9 x 1.5 x 1.8 cm is present. And another in the lower pole is seen in the right kidney measuring 1.4 x 1.1 x 1.4 cm.Cm. Normal echogenicity. No calculus, no solid-appearing mass, or hydronephrosis. LEFT KIDNEY: Measures 11.6 x 5.2 x 6.1cm. Normal echogenicity. No calculus, no solid-appearing mass seen. No hydronephrosis. To left renal cysts are noted 1 measures 1.2 x 1.2 x 1.0 cm. Another measures 1.8 x 1.6 x 2.0 cm. SPLEEN: Normal in size and contour. No mass. AORTA: No aneurysmal dilatation. IVC: Unremarkable. OTHER FINDINGS: Ascites present specially around the liver. IMPRESSION: Heterogeneous liver with the hepatic steatosis and/or other hepatic parenchymal pathology. A dominant the left hepatic lobe mass is noted-this has been present and referenced on prior PET-CT studies-neoplastic origin is inferred-recurrence is possible based on recent interval change referenced in most recent PET-CT study. Clinical correlation recommended. Gallbladder is not particularly distended-the wall is thickened with pericholecystic fluid. Gallbladder wall edema present. Gallstones present. No positive ultrasound Avalos sign. An acute or subacute cholecystitis is a consideration. Ascites probably in part contributing to the gallbladder wall thickening and pericholecystic fluid No gross dilated ducts seen. However visualization of common bile duct is difficult to ascertain. Consider right upper quadrant ultrasound follow-up imaging to better assess this-if needed.. Multiple bilateral renal cysts-no hydronephrosis. Concordant results (preliminary interpretation) provided by [facility].
--- NOTE | 2018-12-18 09:19 | CP.PCM.PN ---
<rJMedardo - Last Filed: 12/18/18 20:09> Subjective - Date & Time of Evaluation Date of Evaluation: 12/18/18 Time of Evaluation: 20:09 - Subjective Subjective: Heme/onc and Medicine progress note - Jr PGY - 2 Patient seen and examined at bedside with no acute complaints. States he is feeling well and denies any overnight events. No acute overnight events per nursing. Explained in depth the results from studies obtained yesterday; patients will discuss further with Dr. Pfeiffer. Objective - Vital Signs/Intake and Output Vital Signs (last 24 hours): Temp Pulse Resp BP Pulse Ox 97.4 F L 102 H 20 119/79 97 12/18/18 08:03 12/18/18 08:03 12/18/18 08:03 12/18/18 08:03 12/18/18 08:03 Intake and Output: 12/18/18 12/18/18 06:59 18:59 Intake Total 820 Output Total 200 Balance 620 - Medications Medications: Current Medications Acetaminophen (Tylenol 325mg Tab) 650 mg PO Q4 PRN PRN Reason: Pain, Mild (1-3) Apixaban (Eliquis) 5 mg PO BID [facility]; Protocol Atenolol (Tenormin) 50 mg PO DAILY [facility] Digoxin (Lanoxin Elixir Soln) 0.25 mg PO 1400 [facility] Sodium Chloride (Sodium Chloride 0.9%) 1,000 mls @ 50 mls/hr IV .Q20H [facility] Last Admin: 12/17/18 20:09 Dose: 50 mls/hr Meropenem (Merrem Iv 1 Gm Premix) 1 gm in 50 mls @ 100 mls/hr IVPB Q8 [facility]; Protocol Stop: 12/26/18 22:01 Last Admin: 12/18/18 05:28 Dose: 100 mls/hr Insulin Human Regular (Humulin R Low) 0 units SC ACHS [facility]; Protocol Last Admin: 12/18/18 08:55 Dose: Not Given Isosorbide Mononitrate (Imdur Er) 30 mg PO DAILY [facility] Pantoprazole Sodium (Protonix Ec Tab) 40 mg PO DAILY [facility] Tamsulosin HCl (Flomax) 0.4 mg PO DAILY [facility] - Labs Labs: 12/18/18 07:00 12/18/18 07:00 PT 20.5 SECONDS (9.4-12.5) H 12/17/18 14:18 INR 1.85 12/17/18 14:18 APTT 29.7 Seconds (26.9-38.3) 12/17/18 14:18 - Constitutional Appears: Well - Head Exam Head Exam: ATRAUMATIC, NORMAL INSPECTION, NORMOCEPHALIC - Eye Exam Eye Exam: EOMI, Normal appearance, PERRL Pupil Exam: NORMAL ACCOMODATION, PERRL - ENT Exam ENT Exam: Mucous Membranes Moist, Normal Exam - Neck Exam Neck Exam: Full ROM, Normal Inspection. absent: Lymphadenopathy - Respiratory Exam Respiratory Exam: Clear to Ausculation Bilateral, NORMAL BREATHING PATTERN - Cardiovascular Exam Cardiovascular Exam: REGULAR RHYTHM, +S1, +S2. absent: Murmur - GI/Abdominal Exam GI & Abdominal Exam: Distended, Soft, Normal Bowel Sounds. absent: Tenderness - Extremities Exam Extremities Exam: Full ROM, Normal Capillary Refill, Normal Inspection. 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 Plan - Obtain Abdominal Duplex to rule out Budd Chiari/hepatic vein thrombosis - Start patient on Albumin and aldactone for ascites - Hold Eliqius for a-fib - Anti-hypertensives continued with holding parameters, SBP < 100 and/or HR < 60 - Continue Merrem as per Dr. Phan - Continue with fluid hydration for lactic acidosis; liver disease could also be contributing to this. - No acute intervention from surgery for GB disease; MRCP and clear diet with IVF recommended per GI for possible GB disease. - Urine lytes ordered; hyponatremia management with IVF @ 50/hr; Dr. Hurd also on consult - Consultations for Dr. Bernard Barron, Dr. Hurd, Dr. Montes, Dr. Juarez, Dr. Fink, and Dr. Mederos placed - Nephro consulted to r/o tumor lysis syndrome - GI/DVT ppx with protonix/eliquis <Tram Pfeiffer P - Last Filed: 12/19/18 23:42> Objective - Vital Signs/Intake and Output Vital Signs (last 24 hours): Temp Pulse Resp BP Pulse Ox 97.5 F L 75 20 97/65 L 94 L 12/19/18 17:42 12/19/18 18:00 12/19/18 06:00 12/19/18 17:42 12/19/18 17:42 - Medications Medications: Current Medications Acetaminophen (Tylenol 325mg Tab) 650 mg PO Q4 PRN PRN Reason: Pain, Mild (1-3) Last Admin: 12/18/18 20:11 Dose: 650 mg Apixaban (Eliquis) 5 mg PO BID [facility]; Protocol Last Admin: 12/19/18 17:30 Dose: 5 mg Atenolol (Tenormin) 50 mg PO DAILY [facility] Last Admin: 12/19/18 11:40 Dose: 50 mg Digoxin (Lanoxin) 0.25 mg PO 1400 [facility] Last Admin: 12/19/18 14:34 Dose: 0.25 mg Sodium Chloride (Sodium Chloride 0.9%) 1,000 mls @ 50 mls/hr IV .Q20H [facility] Last Admin: 12/19/18 11:41 Dose: 50 mls/hr Meropenem (Merrem Iv 1 Gm Premix) 1 gm in 50 mls @ 100 mls/hr IVPB Q8 [facility]; Protocol Stop: 12/26/18 22:01 Last Admin: 12/19/18 22:07 Dose: 100 mls/hr Insulin Human Regular (Humulin R Low) 0 units SC ACHS [facility]; Protocol Last Admin: 12/19/18 22:03 Dose: Not Given Isosorbide Mononitrate (Imdur Er) 30 mg PO DAILY [facility] Last Admin: 12/19/18 11:40 Dose: 30 mg Morphine Sulfate (Morphine) 2 mg IVP Q4H PRN PRN Reason: Pain, severe (8-10) Last Admin: 12/19/18 22:35 Dose: 2 mg Pantoprazole Sodium (Protonix Ec Tab) 40 mg PO DAILY [facility] Last Admin: 12/19/18 10:49 Dose: 40 mg Spironolactone (Aldactone) 25 mg PO BID [facility] Last Admin: 12/19/18 17:27 Dose: Not Given Tamsulosin HCl (Flomax) 0.4 mg PO DAILY [facility] Last Admin: 12/19/18 22:07 Dose: 0.4 mg - Labs Labs: 12/19/18 05:15 12/19/18 05:15 PT 16.1 SECONDS (9.4-12.5) H 12/19/18 05:15 INR 1.42 12/19/18 05:15 APTT 28.6 Seconds (26.9-38.3) 12/19/18 05:15 Attending/Attestation - Attestation I have personally seen and examined this patient.: Yes I have fully participated in the care of the patient.: Yes I have reviewed all pertinent clinical information, including history, physical exam and plan: Yes
[2018-12-18] MEDS: Pantoprazole 40 mg EC Tab PO SCH (09:25)
--- NOTE | 2018-12-18 10:52 | CP.PCM.CON ---
<Jacoby Benson - Last Filed: 12/18/18 13:04> History of Present Illness - History of Present Illness History of Present Illness: Infectious disease consult note: 78-year-old male with past medical history of metastatic small cell lung cancer, A. fib, hepatitis C, hypertension, coronary artery disease, abdominal hernia, BPH,presents to the hospital with abdominal pain and testicular swelling. Patient states that she follows with Dr. Pfeiffer which recommended he come to the emergency room for further work-up. Patient states that his pain is mild intermittent and generalized in his whole abdomen. He states that the pain is worse when he lays on his sides. He admits to some nausea however denies any vomiting. Denies any fevers or chills at home. Infectious disease was consulted for acute cholecystitis. 12 point ROS performed and negative other than stated above PMH: As above PSH: Port-A-Cath placement, liver biopsy, paracentesis? SH: Former smoker 40 years ago, social drinking, denies any drug use FH: Denies Review of Systems - Review of Systems All systems: reviewed and no additional remarkable complaints except Past Patient History - Infectious Disease Hx of Infectious Diseases: None - Past Social History Smoking Status: Former Smoker - CARDIAC Hx Cardiac Disorders: Yes Hx Hypertension: Yes - PULMONARY Hx Respiratory Disorders: No - NEUROLOGICAL Hx Neurological Disorder: Yes Hx Transient Ischemic Attacks (TIA): Yes - HEENT Hx HEENT Problems: No - RENAL Hx Chronic Kidney Disease: No - ENDOCRINE/METABOLIC Hx Endocrine Disorders: No - HEMATOLOGICAL/ONCOLOGICAL Hx Cancer: Yes (SCLC) - INTEGUMENTARY Hx Dermatological Problems: No - MUSCULOSKELETAL/RHEUMATOLOGICAL Hx Falls: No - PSYCHIATRIC Hx Emotional Abuse: No Hx Physical Abuse: No - SURGICAL HISTORY Other/Comment: HERNIA surgery - ANESTHESIA Hx Anesthesia Reactions: No Hx Malignant Hyperthermia: No Meds Allergies/Adverse Reactions: Allergies Allergy/AdvReac Type Severity Reaction Status Date / Time Penicillins Allergy Severe RASH Verified 06/06/18 10:39 - Medications Medications: Current Medications Acetaminophen (Tylenol 325mg Tab) 650 mg PO Q4 PRN PRN Reason: Pain, Mild (1-3) Apixaban (Eliquis) 5 mg PO BID [facility]; Protocol Atenolol (Tenormin) 50 mg PO DAILY [facility] Last Admin: 12/18/18 09:24 Dose: 50 mg Digoxin (Lanoxin Elixir Soln) 0.25 mg PO 1400 GERDA Sodium Chloride (Sodium Chloride 0.9%) 1,000 mls @ 50 mls/hr IV .Q20H [facility] Last Admin: 12/17/18 20:09 Dose: 50 mls/hr Meropenem (Merrem Iv 1 Gm Premix) 1 gm in 50 mls @ 100 mls/hr IVPB Q8 [facility]; Protocol Stop: 12/26/18 22:01 Last Admin: 12/18/18 05:28 Dose: 100 mls/hr Insulin Human Regular (Humulin R Low) 0 units SC ACHS [facility]; Protocol Last Admin: 12/18/18 08:55 Dose: Not Given Isosorbide Mononitrate (Imdur Er) 30 mg PO DAILY [facility] Last Admin: 12/18/18 09:24 Dose: 30 mg Pantoprazole Sodium (Protonix Ec Tab) 40 mg PO DAILY [facility] Last Admin: 12/18/18 09:25 Dose: 40 mg Tamsulosin HCl (Flomax) 0.4 mg PO DAILY [facility] Last Admin: 12/18/18 09:24 Dose: 0.4 mg Physical Exam - Head Exam Head Exam: ATRAUMATIC, NORMOCEPHALIC - Eye Exam Eye Exam: EOMI - ENT Exam ENT Exam: Mucous Membranes Moist - Respiratory Exam Respiratory Exam: Clear to Auscultation Bilateral. absent: Rales, Wheezes - Cardiovascular Exam Cardiovascular Exam: REGULAR RHYTHM, +S1, +S2 - GI/Abdominal Exam GI & Abdominal Exam: Distended, Soft Additional comments: Generalized tenderness of the abdomen - Extremities Exam Extremities exam: Negative for: calf tenderness, pedal edema - Psychiatric Exam Psychiatric exam: Normal Mood - Skin Skin Exam: Dry, Warm Results - Vital Signs Recent Vital Signs: Last Vital Signs Temp 97.4 F L 12/18/18 08:03 Pulse 102 H 12/18/18 08:03 Resp 20 12/18/18 08:03 BP 119/79 12/18/18 08:03 Pulse Ox 97 12/18/18 08:03 - Labs Result Diagrams: 12/18/18 07:00 12/18/18 07:00 Labs: Laboratory Results - last 24 hr 12/17/18 12/17/18 12/17/18 14:16 14:18 14:18 WBC 8.0 D RBC 4.48 Hgb 14.5 D Hct 41.7 L MCV 93.1 D MCH 32.4 MCHC 34.8 RDW 15.5 H Plt Count 106 L MPV 9.5 Neut % (Auto) 79.3 H Lymph % (Auto) 11.3 L Brule % (Auto) 9.3 H Eos % (Auto) 0.1 L Baso % (Auto) 0.0 Lymph # (Auto) 0.9 L Brule # (Auto) 0.7 H Eos # (Auto) 0.0 Baso # (Auto) 0.00 Absolute Neuts (auto) 6.31 PT 20.5 H INR 1.85 APTT 29.7 pO2 43 VBG pH 7.37 VBG pCO2 37.0 L VBG HCO3 21.4 VBG Total CO2 22.5 VBG O2 Sat (Calc) 81.6 H VBG Base Excess -3.4 L VBG Potassium 4.3 Sodium 128.0 L Chloride 95.0 L Glucose 102 Lactate 4.5 H* FiO2 21.0 Crit Value Called To Md celso morales Crit Value Called By Diomedes thomas Blood Gas Notified Time 1445 Potassium Carbon Dioxide Anion Gap BUN Creatinine Est GFR ( Amer) Est GFR (Non-Af Amer) POC Glucose (mg/dL) Random Glucose Calcium Phosphorus Magnesium Total Bilirubin AST ALT Alkaline Phosphatase Lactate Dehydrogenase Total Creatine Kinase Troponin I NT-Pro-B Natriuret Pep Total Protein Albumin Globulin Albumin/Globulin Ratio Lipase Venous Blood Potassium 4.3 Urine Color Urine Appearance Urine pH Ur Specific [place] Urine Protein Urine Glucose (UA) Urine Ketones Urine Blood Urine Nitrate Urine Bilirubin Urine Urobilinogen Ur Leukocyte Esterase Urine RBC Urine WBC Ur Epithelial Cells Urine Bacteria Digoxin 12/17/18 12/17/18 12/17/18 14:18 15:35 22:11 WBC RBC Hgb Hct MCV MCH MCHC RDW Plt Count MPV Neut % (Auto) Lymph % (Auto) Brule % (Auto) Eos % (Auto) Baso % (Auto) Lymph # (Auto) Brule # (Auto) Eos # (Auto) Baso # (Auto) Absolute Neuts (auto) PT INR APTT pO2 52 VBG pH 7.35 VBG pCO2 42.0 VBG HCO3 23.2 VBG Total CO2 24.5 VBG O2 Sat (Calc) 87.7 H VBG Base Excess -2.4 L VBG Potassium 4.4 Sodium 130 L 127.0 L Chloride 97 L 96.0 L Glucose 85 Lactate 3.3 H FiO2 21.0 Crit Value Called To Javier Crit Value Called By Atc Blood Gas Notified Time 2220 Potassium 4.5 Carbon Dioxide 23 Anion Gap 15 BUN 28 H Creatinine 0.9 Est GFR ( Amer) > 60 Est GFR (Non-Af Amer) > 60 POC Glucose (mg/dL) Random Glucose 106 Calcium 9.4 Phosphorus 3.5 Magnesium 1.8 Total Bilirubin 1.3 AST 71 H ALT 43 Alkaline Phosphatase 148 H Lactate Dehydrogenase 554 Total Creatine Kinase 58 Troponin I < 0.01 NT-Pro-B Natriuret Pep 1420 H Total Protein 5.4 L Albumin 2.9 L Globulin 2.5 Albumin/Globulin Ratio 1.2 Lipase 31 Venous Blood Potassium 4.4 Urine Color Dark yellow Urine Appearance Sl cloudy Urine pH 6.0 Ur Specific [place] 1.025 Urine Protein Trace H Urine Glucose (UA) Negative Urine Ketones Trace H Urine Blood Negative Urine Nitrate Positive H Urine Bilirubin Small H Urine Urobilinogen 2.0 H Ur Leukocyte Esterase Negative Urine RBC None Urine WBC 5 - 10 H Ur Epithelial Cells 4 - 5 Urine Bacteria Few Digoxin 12/17/18 12/18/18 12/18/18 22:15 01:15 07:00 WBC 8.1 RBC 4.34 Hgb 14.2 Hct 40.4 L MCV 93.1 MCH 32.7 MCHC 35.1 RDW 15.7 H Plt Count 105 L MPV 9.9 Neut % (Auto) 76.6 H Lymph % (Auto) 12.3 L Brule % (Auto) 10.9 H Eos % (Auto) 0.2 L Baso % (Auto) 0.0 Lymph # (Auto) 1.0 L Brule # (Auto) 0.9 H Eos # (Auto) 0.0 Baso # (Auto) 0.00 Absolute Neuts (auto) 6.20 PT INR APTT pO2 29 L VBG pH 7.36 VBG pCO2 42.0 VBG HCO3 23.7 VBG Total CO2 25.0 VBG O2 Sat (Calc) 54.7 VBG Base Excess -1.8 L VBG Potassium 4.5 Sodium 127.0 L Chloride 95.0 L Glucose 117 H Lactate 3.7 H FiO2 21.0 Crit Value Called To Erin evans rn 3rso Crit Value Called By Jsm Blood Gas Notified Time 200 Potassium Carbon Dioxide Anion Gap BUN Creatinine Est GFR ( Amer) Est GFR (Non-Af Amer) POC Glucose (mg/dL) 87 Random Glucose Calcium Phosphorus Magnesium Total Bilirubin AST ALT Alkaline Phosphatase Lactate Dehydrogenase Total Creatine Kinase Troponin I NT-Pro-B Natriuret Pep Total Protein Albumin Globulin Albumin/Globulin Ratio Lipase Venous Blood Potassium 4.5 Urine Color Urine Appearance Urine pH Ur Specific [place] Urine Protein Urine Glucose (UA) Urine Ketones Urine Blood Urine Nitrate Urine Bilirubin Urine Urobilinogen Ur Leukocyte Esterase Urine RBC Urine WBC Ur Epithelial Cells Urine Bacteria Digoxin 12/18/18 12/18/18 12/18/18 07:00 07:00 07:14 WBC RBC Hgb Hct MCV MCH MCHC RDW Plt Count MPV Neut % (Auto) Lymph % (Auto) Brule % (Auto) Eos % (Auto) Baso % (Auto) Lymph # (Auto) Brule # (Auto) Eos # (Auto) Baso # (Auto) Absolute Neuts (auto) PT INR APTT pO2 VBG pH VBG pCO2 VBG HCO3 VBG Total CO2 VBG O2 Sat (Calc) VBG Base Excess VBG Potassium Sodium 128 L Chloride 95 L Glucose Lactate FiO2 Crit Value Called To Crit Value Called By Blood Gas Notified Time Potassium 4.5 Carbon Dioxide 21 Anion Gap 17 BUN 28 H Creatinine 0.9 Est GFR ( Amer) > 60 Est GFR (Non-Af Amer) > 60 POC Glucose (mg/dL) 107 Random Glucose 90 Calcium 9.1 Phosphorus Magnesium Total Bilirubin 1.2 AST 79 H ALT 48 Alkaline Phosphatase 170 H Lactate Dehydrogenase Total Creatine Kinase Troponin I NT-Pro-B Natriuret Pep Total Protein 4.9 L Albumin 2.7 L Globulin 2.3 Albumin/Globulin Ratio 1.2 Lipase Venous Blood Potassium Urine Color Urine Appearance Urine pH Ur Specific [place] Urine Protein Urine Glucose (UA) Urine Ketones Urine Blood Urine Nitrate Urine Bilirubin Urine Urobilinogen Ur Leukocyte Esterase Urine RBC Urine WBC Ur Epithelial Cells Urine Bacteria Digoxin 1.6 Assessment & Plan - Assessment and Plan (Free Text) Assessment: Abdominal pain rule out cholecystitis, rule out SBP Small cell lung carcinoma on radiation and chemotherapy Coronary artery disease with stents Hepatitis C A. fib on Eliquis Hyperlipidemia Hypertension BPH GERD Patient was started on meropenem which we will continue F/u HIDA and MRCP F/u paracentesis CT of the abdomen showed tumor progression in the liver, new abdominal and pelvic ascites, abnormal gallbladder consistent with gallbladder wall thickening suspicious for acute cholecystitis, retroperitoneal and mesenteric adenopathy, no edema and anasarca Abdominal ultrasound showed heterogeneous liver with hepatic stenosis, dominant left hepatic lobe mass, and a consideration of an acute or subacute cholecystitis, ascites, no gross dilated ducts Bladder ultrasound was performed showed no acute changes Chest CT was performed and showed trace pleural effusions, small pericardial effusion and pleural manifestations of prior asbestos exposure Follow-up septic work-up including blood and urine cultures Continue to monitor for any changes Follow-up surgical, Gastroenterology recommendations Follow-up oncology recommendations Continue to monitor for any changes Case and plan to be reviewed and discussed with Dr. Phan <Jose L Phan - Last Filed: 12/18/18 16:08> Meds - Medications Medications: Current Medications Acetaminophen (Tylenol 325mg Tab) 650 mg PO Q4 PRN PRN Reason: Pain, Mild (1-3) Apixaban (Eliquis) 5 mg PO BID [facility]; Protocol Atenolol (Tenormin) 50 mg PO DAILY [facility] Last Admin: 12/18/18 09:24 Dose: 50 mg Digoxin (Lanoxin Elixir Soln) 0.25 mg PO 1400 GERDA Sodium Chloride (Sodium Chloride 0.9%) 1,000 mls @ 50 mls/hr IV .Q20H [facility] Last Admin: 12/17/18 20:09 Dose: 50 mls/hr Meropenem (Merrem Iv 1 Gm Premix) 1 gm in 50 mls @ 100 mls/hr IVPB Q8 [facility]; Protocol Stop: 12/26/18 22:01 Last Admin: 12/18/18 15:09 Dose: Not Given Insulin Human Regular (Humulin R Low) 0 units SC ACHS [facility]; Protocol Last Admin: 12/18/18 11:47 Dose: Not Given Isosorbide Mononitrate (Imdur Er) 30 mg PO DAILY [facility] Last Admin: 12/18/18 09:24 Dose: 30 mg Pantoprazole Sodium (Protonix Ec Tab) 40 mg PO DAILY [facility] Last Admin: 12/18/18 09:25 Dose: 40 mg Tamsulosin HCl (Flomax) 0.4 mg PO DAILY [facility] Last Admin: 12/18/18 09:24 Dose: 0.4 mg Results - Vital Signs Recent Vital Signs: Last Vital Signs Temp 97.4 F L 12/18/18 08:03 Pulse 102 H 12/18/18 08:03 Resp 20 12/18/18 08:03 BP 119/79 12/18/18 08:03 Pulse Ox 97 12/18/18 08:03 - Labs Result Diagrams: 12/18/18 07:00 12/18/18 07:00 Labs: Laboratory Results - last 24 hr 12/17/18 12/17/18 12/17/18 15:35 19:20 22:11 WBC RBC Hgb Hct MCV MCH MCHC RDW Plt Count MPV Neut % (Auto) Lymph % (Auto) Brule % (Auto) Eos % (Auto) Baso % (Auto) Lymph # (Auto) Brule # (Auto) Eos # (Auto) Baso # (Auto) Absolute Neuts (auto) pO2 52 VBG pH 7.35 VBG pCO2 42.0 VBG HCO3 23.2 VBG Total CO2 24.5 VBG O2 Sat (Calc) 87.7 H VBG Base Excess -2.4 L VBG Potassium 4.4 Sodium 127.0 L Chloride 96.0 L Glucose 85 Lactate 3.3 H FiO2 21.0 Crit Value Called To [facility] Crit Value Called By [facility] Blood Gas Notified Time 2220 Potassium Carbon Dioxide Anion Gap BUN Creatinine Est GFR ( Amer) Est GFR (Non-Af Amer) POC Glucose (mg/dL) Random Glucose Uric Acid Calcium Total Bilirubin AST ALT Alkaline Phosphatase Total Protein Albumin Globulin Albumin/Globulin Ratio Procalcitonin 0.12 L Venous Blood Potassium 4.4 Urine RBC None Urine WBC 5 - 10 H Ur Epithelial Cells 4 - 5 Urine Bacteria Few Urine Osmolality Ur Random Sodium Digoxin 12/17/18 12/18/18 12/18/18 22:15 01:15 07:00 WBC 8.1 RBC 4.34 Hgb 14.2 Hct 40.4 L MCV 93.1 MCH 32.7 MCHC 35.1 RDW 15.7 H Plt Count 105 L MPV 9.9 Neut % (Auto) 76.6 H Lymph % (Auto) 12.3 L Brule % (Auto) 10.9 H Eos % (Auto) 0.2 L Baso % (Auto) 0.0 Lymph # (Auto) 1.0 L Brule # (Auto) 0.9 H Eos # (Auto) 0.0 Baso # (Auto) 0.00 Absolute Neuts (auto) 6.20 pO2 29 L VBG pH 7.36 VBG pCO2 42.0 VBG HCO3 23.7 VBG Total CO2 25.0 VBG O2 Sat (Calc) 54.7 VBG Base Excess -1.8 L VBG Potassium 4.5 Sodium 127.0 L Chloride 95.0 L Glucose 117 H Lactate 3.7 H FiO2 21.0 Crit Value Called To Erin evans rn 3rso Crit Value Called By [facility] Blood Gas Notified Time 200 Potassium Carbon Dioxide Anion Gap BUN Creatinine Est GFR ( Amer) Est GFR (Non-Af Amer) POC Glucose (mg/dL) 87 Random Glucose Uric Acid Calcium Total Bilirubin AST ALT Alkaline Phosphatase Total Protein Albumin Globulin Albumin/Globulin Ratio Procalcitonin Venous Blood Potassium 4.5 Urine RBC Urine WBC Ur Epithelial Cells Urine Bacteria Urine Osmolality Ur Random Sodium Digoxin 12/18/18 12/18/18 12/18/18 07:00 07:00 07:00 WBC RBC Hgb Hct MCV MCH MCHC RDW Plt Count MPV Neut % (Auto) Lymph % (Auto) Brule % (Auto) Eos % (Auto) Baso % (Auto) Lymph # (Auto) Brule # (Auto) Eos # (Auto) Baso # (Auto) Absolute Neuts (auto) pO2 VBG pH VBG pCO2 VBG HCO3 VBG Total CO2 VBG O2 Sat (Calc) VBG Base Excess VBG Potassium Sodium 128 L Chloride 95 L Glucose Lactate FiO2 Crit Value Called To Crit Value Called By Blood Gas Notified Time Potassium 4.5 Carbon Dioxide 21 Anion Gap 17 BUN 28 H Creatinine 0.9 Est GFR ( Amer) > 60 Est GFR (Non-Af Amer) > 60 POC Glucose (mg/dL) Random Glucose 90 Uric Acid 8.1 Calcium 9.1 Total Bilirubin 1.2 AST 79 H ALT 48 Alkaline Phosphatase 170 H Total Protein 4.9 L Albumin 2.7 L Globulin 2.3 Albumin/Globulin Ratio 1.2 Procalcitonin Venous Blood Potassium Urine RBC Urine WBC Ur Epithelial Cells Urine Bacteria Urine Osmolality Ur Random Sodium Digoxin 1.6 12/18/18 12/18/18 12/18/18 07:14 11:22 12:16 WBC RBC Hgb Hct MCV MCH MCHC RDW Plt Count MPV Neut % (Auto) Lymph % (Auto) Brule % (Auto) Eos % (Auto) Baso % (Auto) Lymph # (Auto) Brule # (Auto) Eos # (Auto) Baso # (Auto) Absolute Neuts (auto) pO2 VBG pH VBG pCO2 VBG HCO3 VBG Total CO2 VBG O2 Sat (Calc) VBG Base Excess VBG Potassium Sodium Chloride Glucose Lactate FiO2 Crit Value Called To Crit Value Called By Blood Gas Notified Time Potassium Carbon Dioxide Anion Gap BUN Creatinine Est GFR ( Amer) Est GFR (Non-Af Amer) POC Glucose (mg/dL) 107 134 H Random Glucose Uric Acid Calcium Total Bilirubin AST ALT Alkaline Phosphatase Total Protein Albumin Globulin Albumin/Globulin Ratio Procalcitonin Venous Blood Potassium Urine RBC Urine WBC Ur Epithelial Cells Urine Bacteria Urine Osmolality 773 Ur Random Sodium < 5 Digoxin Attending/Attestation - Attestation I have personally seen and examined this patient.: Yes I have fully participated in the care of the patient.: Yes I have reviewed all pertinent clinical information: Yes
[2018-12-18 13:08] LABS: OSMOLALITY,URINE 773 mosm/kg (300-1000)
[2018-12-18] MEDS ORDERED: Digoxin 0.05 mg/mL Elixir 5mL PO SCH (14:00)
[2018-12-18] MEDS ORDERED: Digoxin 250 mcg (0.25 mg) Tab PO SCH (17:00)
[2018-12-18] MEDS: Digoxin 250 mcg (0.25 mg) Tab PO SCH (17:23)
--- NOTE | 2018-12-18 19:00 | CON ---
DATE OF CONSULTATION: 12/18/2018 REASON FOR CONSULTATION: Hyponatremia, hypoalbuminemia. HISTORY OF PRESENTING ILLNESS: An 78-year-old male, previously unknown to me. The patient was sent to the emergency room yesterday from Dr. Pfeiffer's office because of increasing abdominal girth, lower abdominal pain, dyspnea on exertion, orthopnea. The patient, on questioning, reports that his urine output has decreased. This has been going on for 2 days. He denies any cough. He denies any fever or chills. He denies any nausea or vomiting. He denies any constipation. In the emergency room, he is found to be normotensive, afebrile. His initial sodium is 130, today the sodium has dropped to 128, hence consultation is requested. PAST MEDICAL AND SURGICAL HISTORY: Hypertension, borderline diabetes, hepatitis C for which he was treated in the , CAD, PTCA and stents x5, stage IV small cell CA of the lung with liver mets, lymph node mets, atrial fibrillation on anticoagulation, BPH. FAMILY HISTORY: Hypertension. SOCIAL HISTORY: Ex-smoker, quit 40 years ago, no alcohol use, no IV drug abuse. ALLERGIES: PENICILLIN. MEDICATIONS AT HOME: Prandin, Tylenol, digoxin, Zetia, Livalo, aspirin, Protonix, Imdur, Eliquis, Flomax, atenolol, and tramadol. REVIEW OF SYSTEMS: All systems are reviewed, pertinent positives as mentioned in the history of presenting illness, rest unremarkable. PHYSICAL EXAMINATION: GENERAL: Elderly male, sitting in bed. VITAL SIGNS: Blood pressure 119/79, heart rate 102, respiratory rate 20, temperature 97.4. HEENT: Normocephalic, atraumatic, positive pallor. NECK: Supple, no JVD. LUNGS: Bilateral equal entry, bilateral equal expansion, no rales appreciated. CARDIAC: S1 and S2, irregularly irregular, no murmur, no rub. ABDOMEN: Obese, distended, soft, tenderness in the right lower quadrant, bowel sounds present. EXTREMITIES: No lower extremity edema. LABORATORY DATA: WBC 8.1, hemoglobin 14, hematocrit 40, platelets 105. Sodium 128, potassium 4.5, chloride 95, CO2 of 21, BUN 28, creatinine 0.9, glucose 90, calcium 9.1, total bili 1.2, AST 79, ALT 48, albumin 2.7. Urinalysis, dark yellow, slightly cloudy, pH 6, specific gravity 1025, protein trace, ketones trace, blood negative, nitrite positive, bilirubin small, wbc 5-10, urine sodium less than 5, urine osmolality 773, digoxin 1.6. Urine culture, no growth so far. Blood culture, no growth so far. CT of the abdomen and pelvis, simple bilateral cysts in both kidneys. Extensive abdominal retroperitoneal adenopathy, intra-abdominal and pelvic ascites, cirrhotic liver, innumerable masses in the liver, markedly thickened gallbladder wall. CT of the chest, trace pleural effusions, small pericardial effusion, pleural manifestations of prior asbestos exposure. Abdominal ultrasound, heterogenous liver with hepatic steatosis, left hepatic lobe mass. CURRENT MEDICATIONS: Eliquis 5 b.i.d., Flomax 0.4, Imdur 30, Lanoxin 0.25, Merrem 1 g every eight hours, Protonix 40, normal saline at 50, Tenormin, and Tylenol. ASSESSMENT: 1. Hyponatremia, mild. Urine sodium less than 5. This is kind of consistent with depletion or hyponatremia, but it could also be because of hepatorenal issues. 2. Stage IV metastatic small cell cancer of the lung with extensive intra-abdominal mets/lymphadenopathy, liver mets. 3. History of hypertension, currently hypotensive. 4. History of diabetes. 5. Coronary artery disease, history of percutaneous transluminal coronary angioplasty and stents. 6. Atrial fibrillation, on anticoagulation. 7. Abdominal pain, new ascites? ?. PLAN: 1. Agree with trial of fluids. 2. Check uric acid levels 3. If sodium continues to go down with normal saline, we will have to agree that this is hepatorenal and SIADH and would recommend tolvaptan. 4. Continue empiric antibiotics. 5. Avoid hypotension. 6. Hold antihypertensives. Thank you for the courtesy of this consultation. We will follow this patient closely with you. Shira Hurd MD
[2018-12-18 19:31] LABS: BODY FLUID TYPE PERITONEAL/ASCITES
[2018-12-18 19:43] LABS: BF GROSS APPEARANCE TURBID (CLEAR); BODY FLUID TOTAL COUNT 100 (0-0)
--- NOTE | 2018-12-18 19:58 | US ---
PROCEDURE: Portal vein duplex ultrasound. CLINICAL HISTORY: Onset ascites. If teary liver function. History lung CA. History hepatocellular carcinoma PHYSICIAN(S): Bernard Barron M.D. FINDINGS: The liver parenchyma is heterogeneous. There is mass in the left lobe of the liver. There may be satellite lesions on the right. The extrahepatic portal vein is patent with hepatopetal flow. Hepatic artery is patent. Limited images of the central hepatic veins are patent. The spleen is not enlarged. There is a small amount of ascites in the upper abdomen IMPRESSION: 1. Patent portal vein with hepatopetal flow. 2. Bilobar liver masses.
--- NOTE | 2018-12-18 20:29 | US ---
PROCEDURE: Ultrasound guided paracentesis. HISTORY: New onset ascites. History hepatocellular carcinoma and lung carcinoma. Needs diagnostic and therapeutic paracentesis PHYSICIAN(S): Bernard Barron MD. TECHNIQUE: The relative risks and indications for the procedure were explained to the patient and informed written consent obtained. Sonography of the abdomen was performed in a supine position. This revealed a small to moderate amount of non-loculated ascites, greatest in the right lower quadrant. A puncture site was selected and the area was prepped and draped in the usual sterile fashion. 1% Xylocaine was used to anesthetize the skin and soft tissues. A 7 [place]ian paracentesis catheter was trocared into the right lower quadrantand 2300 cc of chylous slightly pink fluid aspirated. The appropriate labs were sent. IMPRESSION: Ultrasound-guided paracentesis in the right lower quadrant. 2300 cc of chylous fluid was aspirated. The appropriate labs were sent.
[2018-12-18] MEDS: Albumin Human 25% (12.5 gm/50 ml) IV SCH (20:52)
[2018-12-18] MEDS: Morphine 2 mg/ml ISec IVP PRN (22:09)
--- NOTE | 2018-12-18 23:19 | PN ---
DATE: 12/18/2018 This is [facility] visit on the medical floor. For Dr. Pfeiffer. SUBJECTIVE: Patient is an 78-year-old male, now returned from paracentesis by Dr. 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 At present, we await an evaluation by Dr. Mccann, hepatic surgeon as the patient's tumor burden is now compromising his gallbladder with possible cholecystitis versus portal vein compromise considered. Except for some vague discomfort, the patient is otherwise without complaint. OBJECTIVE/PHYSICAL EXAMINATION: VITAL SIGNS: Temperature 97.4, pulse 92, respirations 20, blood pressure 119/79, and pulse oximetry 97%. HEENT: Unremarkable. NECK: Supple. HEART: Regular rate, occasional ectopic beat. LUNGS: Clear, minimal decreased breath sounds at the bases. ABDOMEN: Distended with patient being status post paracentesis with dressing dry and intact. EXTREMITIES: Faint +1 edema. NEUROLOGIC: Awake and alert. SKIN: Warm and dry. LABORATORY DATA: Patient's labs were done. White blood cell count of 8.1, hemoglobin 14.3, hematocrit 40.4, and platelet count of 105,000. The metabolic panel showed a sodium of 128, chloride of 95, AST of 79, total protein of 4.9, INR of 1.85 with his lactate being repeated at 3.7 earlier today, down from 4.5 on admission. His urine showed positive nitrate with trace of ketones, trace of protein with a digoxin level of 1.6. The patient's urine culture showed no growth. Blood culture were no growth also. The patient did have an abdominal ultrasound done earlier today, which was read as patent portal vein with hepatopetal flow, bilobar liver masses. It was compared to the abdominal ultrasound done yesterday, which showed dominant left hepatic lobe mass with neoplastic origin inferred, recurrence possible based on interval change since the recent PET/CT scan of the gallbladder with wall thickened with pericholecystic fluid, gallbladder wall edema, and a subacute cholecystitis for consideration of ascites contributing to gallbladder wall thickening. 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 PLAN: For this patient after conversation with Dr. Pfeiffer is to continue present medical regimen. Paracentesis was done. We will await evaluation by Dr. Mccann, liver surgeon. We will continue treatment including albumin with Lasix afterwards for possible reversal of his ascites. We will also continue sliding scale insulin with antibiotics as per Dr. Phan as indicated with senior compensation consultant's recommendations appreciated. We will restart his Eliquis and aspirin tomorrow unless Dr. Mccann would recommend a procedure which would necessitate holding off or restart as per Dr. Pfeiffer's recommendations. This is a complex patient with a comprehensive medically necessary and appropriate visit carried out in excess of 40 minutes with the patient and his 's questions answered to their satisfaction at length with the prognosis for this patient guarded. Yasir Briones MD
[2018-12-19] MEDS ORDERED: Morphine 2 mg/ml ISec IVP STA (00:50)
[2018-12-19] MEDS: Insulin Reg-LOW-Coverage SC SCH ×5 (03:38→22:03)
[2018-12-19] MEDS: Meropenem IV 1 gm in NS 1 GM/50 ML BAG IVPB SCH ×3 (05:11→22:07)
[2018-12-19 05:42] LABS: EOS % 0.3 % (1.5-5.0); HEMOGLOBIN 13.8 g/dL (14.0-18.0); LYMPH # 0.9 (1.2-3.4); LYMPH % 11.7 % (22.0-35.0); MEAN CELL VOLUME 92.6 fl (80.0-105.0); MEAN CORPUSCULAR HEMOGLOBIN 32.8 pg (25.0-35.0); MEAN CORPUSCULAR HGB CONC 35.4 g/dl (31.0-37.0); MEAN PLATELET VOLUME 9.7 fl (7.0-11.0); MONO # 0.8 (0.1-0.6); MONO % 10.1 % (1.0-6.0); RBC 4.21 10^6/uL (3.5-6.1); RED CELL DISTRIBUTION WIDTH 15.6 % (11.5-14.5); WHITE BLOOD COUNT 7.5 10^3/uL (4.5-11.0)
[2018-12-19 05:44] LABS: INR 1.42; PARTIAL THROMBOPLASTIN TIME 28.6 Seconds (26.9-38.3); PROTHROMBIN TIME 16.1 SECONDS (9.4-12.5)
[2018-12-19 05:58] LABS: ALB/GLOB RATIO 1.2 (1.1-1.8); ALBUMIN 2.6 g/dL (3.0-4.8); ALT/SGPT 54 U/L (7-56); AST/SGOT 95 U/L (17-59); BLOOD UREA NITROGEN 41 mg/dL (7-21); CALCIUM 9.2 mg/dL (8.4-10.5); GFR NON-AFRICAN AMERICAN > 60
--- NOTE | 2018-12-19 08:32 | CP.PCM.CON ---
<Maria Elena Dela Cruz - Last Filed: 12/19/18 08:35> History of Present Illness - History of Present Illness History of Present Illness: Hepatobiliary Surgery Dr. Shelton Consult: liver mets, possible gallbladder mets 78 y/o M w/ PMHx of metastatic small cell lung cancer, Afib, HTN, CAD, NE presents to the ED on 12/17 @the direction of Dr. Estrella for abd pain. Pt saw Dr. Estrella in the transfusion center that day and reported some mild, intermittent abd pain. Pain is localized to B/L lower abd. Pt denies any inciting, remitting, exacerbating factors. Pain not associated w/ PO intake, urination, bowel movements. Pt admitted to nausea, now resolved, that started at office visit. Pt denies F/C, N/V, abd pain, N/V, dysuria. CT performed in ED showed worsening liver metastasis, abd/pelvic ascites w/ thickened gb and gallstone in fundus. Abd US showed irregularly thickened abd wall w/ no pericholecystic fluid. Yesterday (12/18), pt underwent paracentesis which removed 2300mL pink, chylous fluid. HIDA and MRCP are pending. PMHx: see above, TIA, HLD, renal cyst, hepatitis C (treated 1997), abdominal hernia, BPH, and GERD Meds: reviewed in chart ALL: PCN PSHx: portacath, liver/LN Bx, paracentesis, PCI SHx: quit smoking 40yrs ago; occasional EtOH; denies drug use FHx: noncontributory Review of Systems - Review of Systems All systems: reviewed and no additional remarkable complaints except (see HPI) Past Patient History - Infectious Disease Hx of Infectious Diseases: None - Past Social History Smoking Status: Former Smoker - CARDIAC Hx Cardiac Disorders: Yes Hx Hypertension: Yes - PULMONARY Hx Respiratory Disorders: No - NEUROLOGICAL Hx Neurological Disorder: Yes Hx Transient Ischemic Attacks (TIA): Yes - HEENT Hx HEENT Problems: No - RENAL Hx Chronic Kidney Disease: No - ENDOCRINE/METABOLIC Hx Endocrine Disorders: No - HEMATOLOGICAL/ONCOLOGICAL Hx Cancer: Yes (SCLC) - INTEGUMENTARY Hx Dermatological Problems: No - MUSCULOSKELETAL/RHEUMATOLOGICAL Hx Falls: No - PSYCHIATRIC Hx Emotional Abuse: No Hx Physical Abuse: No - SURGICAL HISTORY Other/Comment: HERNIA surgery - ANESTHESIA Hx Anesthesia Reactions: No Hx Malignant Hyperthermia: No Meds Allergies/Adverse Reactions: Allergies Allergy/AdvReac Type Severity Reaction Status Date / Time Penicillins Allergy Severe RASH Verified 06/06/18 10:39 - Medications Medications: Current Medications Acetaminophen (Tylenol 325mg Tab) 650 mg PO Q4 PRN PRN Reason: Pain, Mild (1-3) Last Admin: 12/18/18 20:11 Dose: 650 mg Albumin Human (Albumin Human 25% (12.5 Gm/50 Ml)) 12.5 gm IV BID [facility] Stop: 12/19/18 18:01 Last Admin: 12/18/18 20:52 Dose: 12.5 gm Apixaban (Eliquis) 5 mg PO BID [facility]; Protocol Atenolol (Tenormin) 50 mg PO DAILY [facility] Last Admin: 12/18/18 09:24 Dose: 50 mg Digoxin (Lanoxin) 0.25 mg PO 1400 [facility] Last Admin: 12/18/18 17:23 Dose: 0.25 mg Sodium Chloride (Sodium Chloride 0.9%) 1,000 mls @ 50 mls/hr IV .Q20H [facility] Last Admin: 12/17/18 20:09 Dose: 50 mls/hr Meropenem (Merrem Iv 1 Gm Premix) 1 gm in 50 mls @ 100 mls/hr IVPB Q8 [facility]; Protocol Stop: 12/26/18 22:01 Last Admin: 12/19/18 05:11 Dose: 100 mls/hr Insulin Human Regular (Humulin R Low) 0 units SC ACHS [facility]; Protocol Last Admin: 12/19/18 07:38 Dose: Not Given Isosorbide Mononitrate (Imdur Er) 30 mg PO DAILY [facility] Last Admin: 12/18/18 09:24 Dose: 30 mg Morphine Sulfate (Morphine) 2 mg IVP Q4H PRN PRN Reason: Pain, severe (8-10) Last Admin: 12/18/18 22:09 Dose: 2 mg Pantoprazole Sodium (Protonix Ec Tab) 40 mg PO DAILY [facility] Last Admin: 12/18/18 09:25 Dose: 40 mg Spironolactone (Aldactone) 25 mg PO BID [facility] Last Admin: 12/19/18 04:18 Dose: Not Given Tamsulosin HCl (Flomax) 0.4 mg PO DAILY [facility] Last Admin: 12/18/18 09:24 Dose: 0.4 mg Physical Exam - Constitutional Appears: Non-toxic, No Acute Distress - Head Exam Head Exam: NORMAL INSPECTION - Eye Exam Eye Exam: Normal appearance - ENT Exam ENT Exam: Mucous Membranes Moist - Respiratory Exam Respiratory Exam: NORMAL BREATHING PATTERN. absent: Accessory Muscle Use, Respiratory Distress - Cardiovascular Exam Cardiovascular Exam: absent: Bradycardia, Tachycardia - GI/Abdominal Exam GI & Abdominal Exam: Distended (improved, mild), Soft. absent: Firm, Guarding, Rebound, Tenderness - Extremities Exam Extremities exam: Positive for: normal inspection - Neurological Exam Neurological exam: Alert, Oriented x3 - Psychiatric Exam Psychiatric exam: Normal Affect, Normal Mood - Skin Skin Exam: Dry, Intact, Normal Color, Warm Results - Vital Signs Recent Vital Signs: Last Vital Signs Temp 97.5 F L 12/19/18 06:00 Pulse 93 H 12/19/18 06:00 Resp 20 12/19/18 06:00 BP 106/74 12/19/18 06:00 Pulse Ox 98 12/19/18 06:00 - Labs Result Diagrams: 12/19/18 05:15 12/19/18 05:15 Labs: Laboratory Results - last 24 hr 12/17/18 12/18/18 12/18/18 19:20 07:00 11:22 WBC RBC Hgb Hct MCV MCH MCHC RDW Plt Count MPV Neut % (Auto) Lymph % (Auto) Ness % (Auto) Eos % (Auto) Baso % (Auto) Lymph # (Auto) Ness # (Auto) Eos # (Auto) Baso # (Auto) Absolute Neuts (auto) PT INR APTT Sodium Potassium Chloride Carbon Dioxide Anion Gap BUN Creatinine Est GFR ( Amer) Est GFR (Non-Af Amer) POC Glucose (mg/dL) 134 H Random Glucose Uric Acid 8.1 Calcium Total Bilirubin AST ALT Alkaline Phosphatase Total Protein Albumin Globulin Albumin/Globulin Ratio Procalcitonin 0.12 L Urine Osmolality Ur Random Sodium Fluid Source Fluid Appearance Fluid WBC Fluid RBC Fluid Tot Cell Count Fluid Mononuclear Cell Fl Polymorphonucl Cell Fluid Comment 12/18/18 12/18/18 12/18/18 12:16 16:57 19:15 WBC RBC Hgb Hct MCV MCH MCHC RDW Plt Count MPV Neut % (Auto) Lymph % (Auto) Ness % (Auto) Eos % (Auto) Baso % (Auto) Lymph # (Auto) Ness # (Auto) Eos # (Auto) Baso # (Auto) Absolute Neuts (auto) PT INR APTT Sodium Potassium Chloride Carbon Dioxide Anion Gap BUN Creatinine Est GFR ( Amer) Est GFR (Non-Af Amer) POC Glucose (mg/dL) 108 Random Glucose Uric Acid Calcium Total Bilirubin AST ALT Alkaline Phosphatase Total Protein Albumin Globulin Albumin/Globulin Ratio Procalcitonin Urine Osmolality 773 Ur Random Sodium < 5 Fluid Source Peritoneal/ascites Fluid Appearance Turbid Fluid WBC 737.0 H Fluid RBC 87170.0 H Fluid Tot Cell Count 100 H Fluid Mononuclear Cell 51.4 H Fl Polymorphonucl Cell 48.6 H Fluid Comment Light red 12/18/18 12/19/18 12/19/18 21:28 05:15 05:15 WBC 7.5 RBC 4.21 Hgb 13.8 L Hct 39.0 L MCV 92.6 MCH 32.8 MCHC 35.4 RDW 15.6 H Plt Count 99 L MPV 9.7 Neut % (Auto) 77.9 H Lymph % (Auto) 11.7 L Ness % (Auto) 10.1 H Eos % (Auto) 0.3 L Baso % (Auto) 0.0 Lymph # (Auto) 0.9 L Ness # (Auto) 0.8 H Eos # (Auto) 0.0 Baso # (Auto) 0.00 Absolute Neuts (auto) 5.86 PT INR APTT Sodium 131 L Potassium 5.1 H Chloride 99 Carbon Dioxide 21 Anion Gap 15 BUN 41 H Creatinine 1.1 Est GFR ( Amer) > 60 Est GFR (Non-Af Amer) > 60 POC Glucose (mg/dL) 123 H Random Glucose 93 Uric Acid Calcium 9.2 Total Bilirubin 2.2 H AST 95 H D ALT 54 Alkaline Phosphatase 239 H D Total Protein 4.9 L Albumin 2.6 L Globulin 2.3 Albumin/Globulin Ratio 1.2 Procalcitonin Urine Osmolality Ur Random Sodium Fluid Source Fluid Appearance Fluid WBC Fluid RBC Fluid Tot Cell Count Fluid Mononuclear Cell Fl Polymorphonucl Cell Fluid Comment 12/19/18 12/19/18 05:15 07:22 WBC RBC Hgb Hct MCV MCH MCHC RDW Plt Count MPV Neut % (Auto) Lymph % (Auto) Ness % (Auto) Eos % (Auto) Baso % (Auto) Lymph # (Auto) Ness # (Auto) Eos # (Auto) Baso # (Auto) Absolute Neuts (auto) PT 16.1 H INR 1.42 APTT 28.6 Sodium Potassium Chloride Carbon Dioxide Anion Gap BUN Creatinine Est GFR ( Amer) Est GFR (Non-Af Amer) POC Glucose (mg/dL) 100 Random Glucose Uric Acid Calcium Total Bilirubin AST ALT Alkaline Phosphatase Total Protein Albumin Globulin Albumin/Globulin Ratio Procalcitonin Urine Osmolality Ur Random Sodium Fluid Source Fluid Appearance Fluid WBC Fluid RBC Fluid Tot Cell Count Fluid Mononuclear Cell Fl Polymorphonucl Cell Fluid Comment - Imaging and Cardiology HIDA Status: Pending MRI - abdomen Status: Pending CT scan - abdomen Status: Image reviewed by me, Report reviewed by me US - abdomen Status: Image reviewed by me, Report reviewed by me Assessment & Plan - Assessment and Plan (Free Text) Assessment: 78 y/o M w/ metastatic small cell lung cancer to the liver and likely gallbladder Plan: - 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 Cat Dela Cruz PGY3 <Tay Shelton - Last Filed: 12/19/18 16:11> Meds - Medications Medications: Current Medications Acetaminophen (Tylenol 325mg Tab) 650 mg PO Q4 PRN PRN Reason: Pain, Mild (1-3) Last Admin: 12/18/18 20:11 Dose: 650 mg Albumin Human (Albumin Human 25% (12.5 Gm/50 Ml)) 12.5 gm IV BID [facility] Stop: 12/19/18 18:01 Last Admin: 12/19/18 10:49 Dose: 12.5 gm Apixaban (Eliquis) 5 mg PO BID [facility]; Protocol Last Admin: 12/19/18 10:49 Dose: 5 mg Atenolol (Tenormin) 50 mg PO DAILY [facility] Last Admin: 12/19/18 11:40 Dose: 50 mg Digoxin (Lanoxin) 0.25 mg PO 1400 [facility] Last Admin: 12/19/18 14:34 Dose: 0.25 mg Sodium Chloride (Sodium Chloride 0.9%) 1,000 mls @ 50 mls/hr IV .Q20H [facility] Last Admin: 12/19/18 11:41 Dose: 50 mls/hr Meropenem (Merrem Iv 1 Gm Premix) 1 gm in 50 mls @ 100 mls/hr IVPB Q8 [facility]; Protocol Stop: 12/26/18 22:01 Last Admin: 12/19/18 14:34 Dose: 100 mls/hr Insulin Human Regular (Humulin R Low) 0 units SC ACHS [facility]; Protocol Last Admin: 12/19/18 12:01 Dose: Not Given Isosorbide Mononitrate (Imdur Er) 30 mg PO DAILY [facility] Last Admin: 12/19/18 11:40 Dose: 30 mg Morphine Sulfate (Morphine) 2 mg IVP Q4H PRN PRN Reason: Pain, severe (8-10) Last Admin: 12/19/18 14:32 Dose: 2 mg Pantoprazole Sodium (Protonix Ec Tab) 40 mg PO DAILY [facility] Last Admin: 12/19/18 10:49 Dose: 40 mg Spironolactone (Aldactone) 25 mg PO BID [facility] Last Admin: 12/19/18 11:40 Dose: 25 mg Tamsulosin HCl (Flomax) 0.4 mg PO DAILY [facility] Last Admin: 12/19/18 10:59 Dose: Not Given Results - Vital Signs Recent Vital Signs: Last Vital Signs Temp 97.5 F L 12/19/18 06:00 Pulse 100 H 12/19/18 11:40 Resp 20 12/19/18 06:00 BP 106/74 12/19/18 11:40 Pulse Ox 98 12/19/18 06:00 - Labs Result Diagrams: 12/19/18 05:15 12/19/18 05:15 Labs: Laboratory Results - last 24 hr 12/18/18 12/18/18 12/18/18 16:57 19:15 21:28 WBC RBC Hgb Hct MCV MCH MCHC RDW Plt Count MPV Neut % (Auto) Lymph % (Auto) Ness % (Auto) Eos % (Auto) Baso % (Auto) Lymph # (Auto) Ness # (Auto) Eos # (Auto) Baso # (Auto) Absolute Neuts (auto) PT INR APTT Sodium Potassium Chloride Carbon Dioxide Anion Gap BUN Creatinine Est GFR ( Amer) Est GFR (Non-Af Amer) POC Glucose (mg/dL) 108 123 H Random Glucose Calcium Total Bilirubin AST ALT Alkaline Phosphatase Total Protein Albumin Globulin Albumin/Globulin Ratio Urine Collection Time Urine Total Volume Ur Sodium 24 Hour Fluid Source Peritoneal/ascites Fluid Appearance Turbid Fluid WBC 737.0 H Fluid RBC 09142.0 H Fluid Tot Cell Count 100 H Fluid Mononuclear Cell 51.4 H Fl Polymorphonucl Cell 48.6 H Fluid Comment Light red 12/19/18 12/19/18 12/19/18 05:15 05:15 05:15 WBC 7.5 RBC 4.21 Hgb 13.8 L Hct 39.0 L MCV 92.6 MCH 32.8 MCHC 35.4 RDW 15.6 H Plt Count 99 L MPV 9.7 Neut % (Auto) 77.9 H Lymph % (Auto) 11.7 L Ness % (Auto) 10.1 H Eos % (Auto) 0.3 L Baso % (Auto) 0.0 Lymph # (Auto) 0.9 L Ness # (Auto) 0.8 H Eos # (Auto) 0.0 Baso # (Auto) 0.00 Absolute Neuts (auto) 5.86 PT 16.1 H INR 1.42 APTT 28.6 Sodium 131 L Potassium 5.1 H Chloride 99 Carbon Dioxide 21 Anion Gap 15 BUN 41 H Creatinine 1.1 Est GFR ( Amer) > 60 Est GFR (Non-Af Amer) > 60 POC Glucose (mg/dL) Random Glucose 93 Calcium 9.2 Total Bilirubin 2.2 H AST 95 H D ALT 54 Alkaline Phosphatase 239 H D Total Protein 4.9 L Albumin 2.6 L Globulin 2.3 Albumin/Globulin Ratio 1.2 Urine Collection Time Urine Total Volume Ur Sodium 24 Hour Fluid Source Fluid Appearance Fluid WBC Fluid RBC Fluid Tot Cell Count Fluid Mononuclear Cell Fl Polymorphonucl Cell Fluid Comment 12/19/18 12/19/18 12/19/18 07:22 11:27 13:30 WBC RBC Hgb Hct MCV MCH MCHC RDW Plt Count MPV Neut % (Auto) Lymph % (Auto) Ness % (Auto) Eos % (Auto) Baso % (Auto) Lymph # (Auto) Ness # (Auto) Eos # (Auto) Baso # (Auto) Absolute Neuts (auto) PT INR APTT Sodium Potassium Chloride Carbon Dioxide Anion Gap BUN Creatinine Est GFR ( Amer) Est GFR (Non-Af Amer) POC Glucose (mg/dL) 100 116 H Random Glucose Calcium Total Bilirubin AST ALT Alkaline Phosphatase Total Protein Albumin Globulin Albumin/Globulin Ratio Urine Collection Time 24 Urine Total Volume 400 L Ur Sodium 24 Hour 2.0 L Fluid Source Fluid Appearance Fluid WBC Fluid RBC Fluid Tot Cell Count Fluid Mononuclear Cell Fl Polymorphonucl Cell Fluid Comment Assessment & Plan - Assessment and Plan (Free Text) Plan: All medical record entries made by the resident were at my direction. I have reviewed the chart and agree that the record accurately reflects my personal performance of the history, physical exam, and medical decision making.
[2018-12-19] MEDS: Morphine 2 mg/ml ISec IVP PRN ×4 (09:08→22:35)
--- NOTE | 2018-12-19 09:29 | CP.PCM.PN ---
<David King - Last Filed: 12/19/18 14:04> Subjective - Date & Time of Evaluation Date of Evaluation: 12/19/18 Time of Evaluation: 10:15 - Subjective Subjective: David King Internal Medicine Resident- Progress Note on Behalf of Dr. Montes Subjective: Patient seen and examined at bedside. No acute events since admission. States abdominal pain has improved relative to baseline. Offers no new complaints at this time. Tolerating diet. Denies nausea, vomiting, diarrhea, constipation, bright red blood per rectum, and change in stool caliber. Further denies fevers, chills, headache, visual/auditory changes, chest pain, SOB, and focal weakness. 12 point ROS negative except as indicated in HPI Physical Examination: - Constitutional Appears: Non-toxic, No Acute Distress - Head Exam Head Exam: ATRAUMATIC, NORMOCEPHALIC - Eye Exam Eye Exam: EOMI, Normal appearance - ENT Exam ENT Exam: Mucous Membranes Moist - Neck Exam Neck Exam: Full ROM - Respiratory Exam Respiratory Exam: Clear to Auscultation Bilateral, NORMAL BREATHING PATTERN Additional comments: Right chest wall port noted, no signs of infection of the surrounding soft tissues - Cardiovascular Exam Cardiovascular Exam: REGULAR RHYTHM, +S1, +S2 - GI/Abdominal Exam GI & Abdominal Exam: Soft. 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 Ascities Gallbladder wall edema- likely secondary to low albumin state Cholelithiasis Neuroendocrine small cell cancer of the lung with liver mass GERD Hx of Hep C- resolved Imaging Reviewed: 12/17/18 Abdomen/Pelvis CT with oral and IV contrast: 1. Tumor progression in the liver. 2. New abdominal and pelvic ascites. 3. Abnormal gallbladder consisting of gallbladder wall thickening and gallstones which appear to be lodged in the gallbladder neck. The findings are suspicious for acute cholecystitis. 4. Residual retroperitoneal, mesenteric adenopathy. 5. New edema and anasarca. 12/17/[address] without contrast: 1. No acute findings related to/ accounting for the clinical presentation. 2. Trace pleural effusions. 3. Small pericardial effusion. 4. Pleural manifestations of prior asbestos exposure. 12/17/2018 Abdominal Ultrasound: Heterogeneous liver with the hepatic steatosis and/or other hepatic parenchymal pathology. A dominant the left hepatic lobe mass is noted-this has been present and referenced on prior PET-CT studies- neoplastic origin is inferred-recurrence is possible based on recent interval change referenced in most recent PET-CT study. Gallbladder is not particularly distended-the wall is thickened with pericholecystic fluid. Gallbladder wall edema present. Gallstones present. No positive ultrasound Avalos sign. Ascites probably in part contributing to the gallbladder wall thickening and pericholecystic fluid. No gross dilated ducts seen. Multiple bilateral renal cysts-no hydronephrosis. - patient underwent paracentesis 12/18/2018- removed 2300mL pink, chylous fluid, cell count, cell cytology, albumin, LDH, total protein ordered and pending - administer albumin as ordered by primary - MRCP without contrast and HIDA are completed- official reads are pending- will follow up - continue clear liquid diet - continue meropenem 1gram IV q12 - continue IVF NS @ 50cc/hr - continue protonix 40mg PO daily Patient case discussed with and plan approved by attending physician, Dr. Montes. Objective - Vital Signs/Intake and Output Vital Signs (last 24 hours): Temp Pulse Resp BP Pulse Ox 97.5 F L 93 H 20 106/74 98 12/19/18 06:00 12/19/18 06:00 12/19/18 06:00 12/19/18 06:00 12/19/18 06:00 Intake and Output: 12/19/18 12/19/18 06:59 18:59 Intake Total 890 Output Total 505 Balance 385 - Medications Medications: Current Medications Acetaminophen (Tylenol 325mg Tab) 650 mg PO Q4 PRN PRN Reason: Pain, Mild (1-3) Last Admin: 12/18/18 20:11 Dose: 650 mg Albumin Human (Albumin Human 25% (12.5 Gm/50 Ml)) 12.5 gm IV BID [facility] Stop: 12/19/18 18:01 Last Admin: 12/18/18 20:52 Dose: 12.5 gm Apixaban (Eliquis) 5 mg PO BID [facility]; Protocol Atenolol (Tenormin) 50 mg PO DAILY [facility] Last Admin: 12/18/18 09:24 Dose: 50 mg Digoxin (Lanoxin) 0.25 mg PO 1400 [facility] Last Admin: 12/18/18 17:23 Dose: 0.25 mg Sodium Chloride (Sodium Chloride 0.9%) 1,000 mls @ 50 mls/hr IV .Q20H [facility] Last Admin: 12/17/18 20:09 Dose: 50 mls/hr Meropenem (Merrem Iv 1 Gm Premix) 1 gm in 50 mls @ 100 mls/hr IVPB Q8 [facility]; Protocol Stop: 12/26/18 22:01 Last Admin: 12/19/18 05:11 Dose: 100 mls/hr Insulin Human Regular (Humulin R Low) 0 units SC ACHS [facility]; Protocol Last Admin: 12/19/18 07:38 Dose: Not Given Isosorbide Mononitrate (Imdur Er) 30 mg PO DAILY [facility] Last Admin: 12/18/18 09:24 Dose: 30 mg Morphine Sulfate (Morphine) 2 mg IVP Q4H PRN PRN Reason: Pain, severe (8-10) Last Admin: 12/19/18 09:08 Dose: 2 mg Pantoprazole Sodium (Protonix Ec Tab) 40 mg PO DAILY [facility] Last Admin: 12/18/18 09:25 Dose: 40 mg Spironolactone (Aldactone) 25 mg PO BID [facility] Last Admin: 12/19/18 04:18 Dose: Not Given Tamsulosin HCl (Flomax) 0.4 mg PO DAILY [facility] Last Admin: 12/18/18 09:24 Dose: 0.4 mg - Labs Labs: 12/19/18 05:15 12/19/18 05:15 PT 16.1 SECONDS (9.4-12.5) H 12/19/18 05:15 INR 1.42 12/19/18 05:15 APTT 28.6 Seconds (26.9-38.3) 12/19/18 05:15 <JyotiFaye licea V - Last Filed: 12/19/18 23:54> Objective - Vital Signs/Intake and Output Vital Signs (last 24 hours): Temp Pulse Resp BP Pulse Ox 97.5 F L 75 20 97/65 L 94 L 12/19/18 17:42 12/19/18 18:00 12/19/18 06:00 12/19/18 17:42 12/19/18 17:42 - Medications Medications: Current Medications Acetaminophen (Tylenol 325mg Tab) 650 mg PO Q4 PRN PRN Reason: Pain, Mild (1-3) Last Admin: 12/18/18 20:11 Dose: 650 mg Apixaban (Eliquis) 5 mg PO BID [facility]; Protocol Last Admin: 12/19/18 17:30 Dose: 5 mg Atenolol (Tenormin) 50 mg PO DAILY [facility] Last Admin: 12/19/18 11:40 Dose: 50 mg Digoxin (Lanoxin) 0.25 mg PO 1400 [facility] Last Admin: 12/19/18 14:34 Dose: 0.25 mg Sodium Chloride (Sodium Chloride 0.9%) 1,000 mls @ 50 mls/hr IV .Q20H [facility] Last Admin: 12/19/18 11:41 Dose: 50 mls/hr Meropenem (Merrem Iv 1 Gm Premix) 1 gm in 50 mls @ 100 mls/hr IVPB Q8 [facility]; Protocol Stop: 12/26/18 22:01 Last Admin: 12/19/18 22:07 Dose: 100 mls/hr Insulin Human Regular (Humulin R Low) 0 units SC ACHS [facility]; Protocol Last Admin: 12/19/18 22:03 Dose: Not Given Isosorbide Mononitrate (Imdur Er) 30 mg PO DAILY [facility] Last Admin: 12/19/18 11:40 Dose: 30 mg Morphine Sulfate (Morphine) 2 mg IVP Q4H PRN PRN Reason: Pain, severe (8-10) Last Admin: 12/19/18 22:35 Dose: 2 mg Pantoprazole Sodium (Protonix Ec Tab) 40 mg PO DAILY [facility] Last Admin: 12/19/18 10:49 Dose: 40 mg Spironolactone (Aldactone) 25 mg PO BID [facility] Last Admin: 12/19/18 17:27 Dose: Not Given Tamsulosin HCl (Flomax) 0.4 mg PO DAILY [facility] Last Admin: 12/19/18 22:07 Dose: 0.4 mg - Labs Labs: 12/19/18 05:15 12/19/18 05:15 PT 16.1 SECONDS (9.4-12.5) H 12/19/18 05:15 INR 1.42 12/19/18 05:15 APTT 28.6 Seconds (26.9-38.3) 12/19/18 05:15 Attending/Attestation - Attestation I have personally seen and examined this patient.: Yes I have fully participated in the care of the patient.: Yes I have reviewed all pertinent clinical information, including history, physical exam and plan: Yes Notes (Text): This patient was seen and evaluated along with the resident earlier today. This is an addendum to the GI progress note dictated by the resident. Nuclear scan was reviewed negative for cystic duct obstruction. MRCP was reviewed no CBD stone. Patient bilirubin is slightly elevated. Patient has been on antibiotics. Status post large-volume paracentesis and the fluid appeared chylous.. This 12/19/18 23:53
[2018-12-19] MEDS: Albumin Human 25% (12.5 gm/50 ml) IV SCH ×2 (10:49→17:57)
[2018-12-19] MEDS: Pantoprazole 40 mg EC Tab PO SCH (10:49)
[2018-12-19] MEDS: Sodium Chloride 0.9% 1,000 ML IV SCH (11:41)
--- NOTE | 2018-12-19 12:53 | NM ---
Date of service: 12/18/2018 PROCEDURE: Nuclear Medicine Hepatobiliary Scan HISTORY: Rule out cholecystitis COMPARISON: None available. TECHNIQUE: 7.0 mCi of technetium 99m Mebrofenin was administered intravenously. Planar images of the abdomen were obtained at 5 min intervals to 60 mins. Delayed images were also obtained. FINDINGS: LIVER: Timely and homogenous uptake. COMMON BILE DUCT: identified at 15 mins. GALLBLADDER: identified at 30 mins. SMALL BOWEL: Identified at 30 mins. IMPRESSION: Normal Hepatobiliary Scan. The cystic duct is patent.
[2018-12-19] MEDS: Digoxin 250 mcg (0.25 mg) Tab PO SCH (14:34)
--- NOTE | 2018-12-19 14:49 | MRI ---
Date of service: 12/19/2018 PROCEDURE: Magnetic Resonance Cholangiopancreatography HISTORY: Abdominal pain. Rule out cholecystitis. Liver cancer COMPARISON: CT 12/17/2018 TECHNIQUE: Multiplanar, multisequence MR images of the abdomen were obtained, including heavily T2 weighted MRCP images of the biliary system. Rotating maximum intensity projection images of the biliary system were generated. FINDINGS: MRCP: The common bile duct is of a normal caliber. No evidence of choledocholithiasis. No intrahepatic biliary ductal dilatation. LIVER: There is cirrhosis of the liver. There is diffuse tumor involvement as demonstrated previously. GALLBLADDER: There is marked thickening of the gallbladder wall as well as a gallstone. SPLEEN: Unremarkable. PANCREAS: Unremarkable. ADRENALS: Unremarkable. KIDNEYS: Unremarkable. AORTA: No aneurysm. ASCITES: Severe ascites OTHER FINDINGS: As seen on CT there is extensive mesenteric adenopathy. IMPRESSION: Cirrhosis with extensive tumor involvement. Severe ascites. Marked thickening of the gallbladder wall. No evidence of common duct stone. Mesenteric adenopathy
--- NOTE | 2018-12-19 15:23 | CP.PCM.PN ---
<Jacoby Benson - Last Filed: 12/19/18 16:38> Subjective - Date & Time of Evaluation Date of Evaluation: 12/19/18 Time of Evaluation: 08:50 - Subjective Subjective: Infectious disease progress note: Patient seen and examined at bedside. No acute events overnight. Abd pain has improved. NO fevers. No other complaints. 12 point ROS performed and negative unless stated above. Objective - Vital Signs/Intake and Output Vital Signs (last 24 hours): Temp Pulse Resp BP Pulse Ox 97.5 F L 100 H 20 106/74 98 12/19/18 06:00 12/19/18 11:40 12/19/18 06:00 12/19/18 11:40 12/19/18 06:00 Intake and Output: 12/19/18 12/19/18 06:59 18:59 Intake Total 890 Output Total 505 Balance 385 - Medications Medications: Current Medications Acetaminophen (Tylenol 325mg Tab) 650 mg PO Q4 PRN PRN Reason: Pain, Mild (1-3) Last Admin: 12/18/18 20:11 Dose: 650 mg Albumin Human (Albumin Human 25% (12.5 Gm/50 Ml)) 12.5 gm IV BID [facility] Stop: 12/19/18 18:01 Last Admin: 12/19/18 10:49 Dose: 12.5 gm Apixaban (Eliquis) 5 mg PO BID [facility]; Protocol Last Admin: 12/19/18 10:49 Dose: 5 mg Atenolol (Tenormin) 50 mg PO DAILY [facility] Last Admin: 12/19/18 11:40 Dose: 50 mg Digoxin (Lanoxin) 0.25 mg PO 1400 [facility] Last Admin: 12/19/18 14:34 Dose: 0.25 mg Sodium Chloride (Sodium Chloride 0.9%) 1,000 mls @ 50 mls/hr IV .Q20H [facility] Last Admin: 12/19/18 11:41 Dose: 50 mls/hr Meropenem (Merrem Iv 1 Gm Premix) 1 gm in 50 mls @ 100 mls/hr IVPB Q8 [facility]; Protocol Stop: 12/26/18 22:01 Last Admin: 12/19/18 14:34 Dose: 100 mls/hr Insulin Human Regular (Humulin R Low) 0 units SC ACHS [facility]; Protocol Last Admin: 12/19/18 12:01 Dose: Not Given Isosorbide Mononitrate (Imdur Er) 30 mg PO DAILY [facility] Last Admin: 12/19/18 11:40 Dose: 30 mg Morphine Sulfate (Morphine) 2 mg IVP Q4H PRN PRN Reason: Pain, severe (8-10) Last Admin: 12/19/18 14:32 Dose: 2 mg Pantoprazole Sodium (Protonix Ec Tab) 40 mg PO DAILY [facility] Last Admin: 12/19/18 10:49 Dose: 40 mg Spironolactone (Aldactone) 25 mg PO BID [facility] Last Admin: 12/19/18 11:40 Dose: 25 mg Tamsulosin HCl (Flomax) 0.4 mg PO DAILY [facility] Last Admin: 12/19/18 10:59 Dose: Not Given - Labs Labs: 12/19/18 05:15 12/19/18 05:15 PT 16.1 SECONDS (9.4-12.5) H 12/19/18 05:15 INR 1.42 12/19/18 05:15 APTT 28.6 Seconds (26.9-38.3) 12/19/18 05:15 - Constitutional Appears: No Acute Distress - Head Exam Head Exam: ATRAUMATIC, NORMOCEPHALIC - Eye Exam Eye Exam: EOMI - Respiratory Exam Respiratory Exam: Clear to Ausculation Bilateral. absent: Wheezes - Cardiovascular Exam Cardiovascular Exam: RRR, +S1, +S2 - GI/Abdominal Exam GI & Abdominal Exam: Distended, Soft. absent: Tenderness - Extremities Exam Extremities Exam: absent: Calf Tenderness, Pedal Edema - Neurological Exam Neurological Exam: Alert, Awake - Psychiatric Exam Psychiatric exam: Normal Mood Assessment and Plan - Assessment and Plan (Free Text) Assessment: Abdominal pain rule out cholecystitis, rule out SBP Small cell lung carcinoma on radiation and chemotherapy Coronary artery disease with stents Hepatitis C A. fib on Eliquis Hyperlipidemia Hypertension BPH GERD Cont abd with meropenem F/u HIDA was neg and MRCP was neg for any obstruction F/u paracentesis to r/o SBP - f/u culture and analysis Follow-up septic work-up including blood and urine cultures Follow-up surgical, Gastroenterology recommendations Continue to monitor for any changes Case and plan to be reviewed and discussed with Dr. Phan <Jose L Phan - Last Filed: 12/19/18 16:40> Objective - Vital Signs/Intake and Output Vital Signs (last 24 hours): Temp Pulse Resp BP Pulse Ox 97.5 F L 100 H 20 106/74 98 12/19/18 06:00 12/19/18 11:40 12/19/18 06:00 12/19/18 11:40 12/19/18 06:00 Intake and Output: 12/19/18 12/19/18 06:59 18:59 Intake Total 890 Output Total 505 Balance 385 - Medications Medications: Current Medications Acetaminophen (Tylenol 325mg Tab) 650 mg PO Q4 PRN PRN Reason: Pain, Mild (1-3) Last Admin: 12/18/18 20:11 Dose: 650 mg Albumin Human (Albumin Human 25% (12.5 Gm/50 Ml)) 12.5 gm IV BID [facility] Stop: 12/19/18 18:01 Last Admin: 12/19/18 10:49 Dose: 12.5 gm Apixaban (Eliquis) 5 mg PO BID [facility]; Protocol Last Admin: 12/19/18 10:49 Dose: 5 mg Atenolol (Tenormin) 50 mg PO DAILY [facility] Last Admin: 12/19/18 11:40 Dose: 50 mg Digoxin (Lanoxin) 0.25 mg PO 1400 [facility] Last Admin: 12/19/18 14:34 Dose: 0.25 mg Sodium Chloride (Sodium Chloride 0.9%) 1,000 mls @ 50 mls/hr IV .Q20H [facility] Last Admin: 12/19/18 11:41 Dose: 50 mls/hr Meropenem (Merrem Iv 1 Gm Premix) 1 gm in 50 mls @ 100 mls/hr IVPB Q8 [facility]; Protocol Stop: 12/26/18 22:01 Last Admin: 12/19/18 14:34 Dose: 100 mls/hr Insulin Human Regular (Humulin R Low) 0 units SC ACHS [facility]; Protocol Last Admin: 12/19/18 12:01 Dose: Not Given Isosorbide Mononitrate (Imdur Er) 30 mg PO DAILY [facility] Last Admin: 12/19/18 11:40 Dose: 30 mg Morphine Sulfate (Morphine) 2 mg IVP Q4H PRN PRN Reason: Pain, severe (8-10) Last Admin: 12/19/18 14:32 Dose: 2 mg Pantoprazole Sodium (Protonix Ec Tab) 40 mg PO DAILY [facility] Last Admin: 12/19/18 10:49 Dose: 40 mg Spironolactone (Aldactone) 25 mg PO BID [facility] Last Admin: 12/19/18 11:40 Dose: 25 mg Tamsulosin HCl (Flomax) 0.4 mg PO DAILY [facility] Last Admin: 12/19/18 10:59 Dose: Not Given - Labs Labs: 12/19/18 05:15 12/19/18 05:15 PT 16.1 SECONDS (9.4-12.5) H 12/19/18 05:15 INR 1.42 12/19/18 05:15 APTT 28.6 Seconds (26.9-38.3) 12/19/18 05:15 Attending/Attestation - Attestation I have personally seen and examined this patient.: Yes I have fully participated in the care of the patient.: Yes I have reviewed all pertinent clinical information, including history, physical exam and plan: Yes
--- NOTE | 2018-12-19 15:50 | CP.PCM.PN ---
<JrMedardo - Last Filed: 12/19/18 15:46> Subjective - Date & Time of Evaluation Date of Evaluation: 12/19/18 Time of Evaluation: 15:46 - Subjective Subjective: Heme/onc progress note - Jr PGY - 2 Patient seen and examined at bedside; patient had a rough night overnight, had to get a dose of Morphine. Patient has no acute complaints but is visibly tired today, but maintains his general pleasant attitude. No chest pain shortness of breath. Is tolerating p.o. diet. Objective - Vital Signs/Intake and Output Vital Signs (last 24 hours): Temp Pulse Resp BP Pulse Ox 97.5 F L 100 H 20 106/74 98 12/19/18 06:00 12/19/18 11:40 12/19/18 06:00 12/19/18 11:40 12/19/18 06:00 Intake and Output: 12/19/18 12/19/18 06:59 18:59 Intake Total 890 Output Total 505 Balance 385 - Medications Medications: Current Medications Acetaminophen (Tylenol 325mg Tab) 650 mg PO Q4 PRN PRN Reason: Pain, Mild (1-3) Last Admin: 12/18/18 20:11 Dose: 650 mg Albumin Human (Albumin Human 25% (12.5 Gm/50 Ml)) 12.5 gm IV BID [facility] Stop: 12/19/18 18:01 Last Admin: 12/19/18 10:49 Dose: 12.5 gm Apixaban (Eliquis) 5 mg PO BID [facility]; Protocol Last Admin: 12/19/18 10:49 Dose: 5 mg Atenolol (Tenormin) 50 mg PO DAILY [facility] Last Admin: 12/19/18 11:40 Dose: 50 mg Digoxin (Lanoxin) 0.25 mg PO 1400 [facility] Last Admin: 12/19/18 14:34 Dose: 0.25 mg Sodium Chloride (Sodium Chloride 0.9%) 1,000 mls @ 50 mls/hr IV .Q20H [facility] Last Admin: 12/19/18 11:41 Dose: 50 mls/hr Meropenem (Merrem Iv 1 Gm Premix) 1 gm in 50 mls @ 100 mls/hr IVPB Q8 [facility]; Protocol Stop: 12/26/18 22:01 Last Admin: 12/19/18 14:34 Dose: 100 mls/hr Insulin Human Regular (Humulin R Low) 0 units SC ACHS [facility]; Protocol Last Admin: 12/19/18 12:01 Dose: Not Given Isosorbide Mononitrate (Imdur Er) 30 mg PO DAILY [facility] Last Admin: 12/19/18 11:40 Dose: 30 mg Morphine Sulfate (Morphine) 2 mg IVP Q4H PRN PRN Reason: Pain, severe (8-10) Last Admin: 12/19/18 14:32 Dose: 2 mg Pantoprazole Sodium (Protonix Ec Tab) 40 mg PO DAILY [facility] Last Admin: 12/19/18 10:49 Dose: 40 mg Spironolactone (Aldactone) 25 mg PO BID [facility] Last Admin: 12/19/18 11:40 Dose: 25 mg Tamsulosin HCl (Flomax) 0.4 mg PO DAILY [facility] Last Admin: 12/19/18 10:59 Dose: Not Given - Labs Labs: 12/19/18 05:15 12/19/18 05:15 PT 16.1 SECONDS (9.4-12.5) H 12/19/18 05:15 INR 1.42 12/19/18 05:15 APTT 28.6 Seconds (26.9-38.3) 12/19/18 05:15 - Constitutional Appears: Well - Head Exam Head Exam: ATRAUMATIC, NORMAL INSPECTION, NORMOCEPHALIC - Eye Exam Eye Exam: EOMI, Normal appearance, PERRL Pupil Exam: NORMAL ACCOMODATION, PERRL - ENT Exam ENT Exam: Mucous Membranes Moist, Normal Exam - Neck Exam Neck Exam: Full ROM, Normal Inspection. absent: Lymphadenopathy - Respiratory Exam Respiratory Exam: Clear to Ausculation Bilateral, NORMAL BREATHING PATTERN - Cardiovascular Exam Cardiovascular Exam: REGULAR RHYTHM, +S1, +S2. absent: Murmur - GI/Abdominal Exam GI & Abdominal Exam: Soft, Normal Bowel Sounds. absent: Tenderness - Extremities Exam Extremities Exam: Full ROM, Normal Capillary Refill, Normal Inspection. absent: Joint Swelling, Pedal Edema - Back Exam Back Exam: NORMAL INSPECTION - Neurological Exam Neurological Exam: Alert, Awake, CN II-XII Intact, Normal Gait, Oriented x3 - Psychiatric Exam Psychiatric exam: Normal Affect, Normal Mood - Skin Skin Exam: Dry, Intact, Normal Color, Warm - Additional Findings Additional findings: Obvious ascitic abdomen. 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 Patient remains afebrile and without SIRS criteria; Budd Chiari is ruled out with abdominal duplex. Given this information, patient's presentation is in line with severe tumor burden and possible retroperitoneal involvement. 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 At this time, prognosis will remain guarded. Plan - Continue patient on Albumin and Aldactone for ascites - Anti-hypertensives continued with holding parameters, SBP < 100 and/or HR < 60 - Continue Merrem as per Dr. Phan; since no surgical intervention, we will continue to treat the patient medically - Continue with fluid hydration for lactic acidosis; liver disease could also be contributing to this - Continue IVF as above for Hyponatremia management as well; Dr. Hurd also on consult; hyponatremia improved today - Restart Eliquis - Consultations for Dr. Bernard Barron, Dr. Hurd, Dr. Montes, Dr. Juarez, Dr. Fink, and Dr. Mederos placed - GI/DVT ppx with protonix/eliquis <Tram Pfeiffer P - Last Filed: 12/19/18 23:34> Objective - Vital Signs/Intake and Output Vital Signs (last 24 hours): Temp Pulse Resp BP Pulse Ox 97.5 F L 75 20 97/65 L 94 L 12/19/18 17:42 12/19/18 18:00 12/19/18 06:00 12/19/18 17:42 12/19/18 17:42 - Medications Medications: Current Medications Acetaminophen (Tylenol 325mg Tab) 650 mg PO Q4 PRN PRN Reason: Pain, Mild (1-3) Last Admin: 12/18/18 20:11 Dose: 650 mg Apixaban (Eliquis) 5 mg PO BID [facility]; Protocol Last Admin: 12/19/18 17:30 Dose: 5 mg Atenolol (Tenormin) 50 mg PO DAILY [facility] Last Admin: 12/19/18 11:40 Dose: 50 mg Digoxin (Lanoxin) 0.25 mg PO 1400 [facility] Last Admin: 12/19/18 14:34 Dose: 0.25 mg Sodium Chloride (Sodium Chloride 0.9%) 1,000 mls @ 50 mls/hr IV .Q20H [facility] Last Admin: 12/19/18 11:41 Dose: 50 mls/hr Meropenem (Merrem Iv 1 Gm Premix) 1 gm in 50 mls @ 100 mls/hr IVPB Q8 [facility]; Protocol Stop: 12/26/18 22:01 Last Admin: 12/19/18 22:07 Dose: 100 mls/hr Insulin Human Regular (Humulin R Low) 0 units SC ACHS [facility]; Protocol Last Admin: 12/19/18 22:03 Dose: Not Given Isosorbide Mononitrate (Imdur Er) 30 mg PO DAILY [facility] Last Admin: 12/19/18 11:40 Dose: 30 mg Morphine Sulfate (Morphine) 2 mg IVP Q4H PRN PRN Reason: Pain, severe (8-10) Last Admin: 12/19/18 22:35 Dose: 2 mg Pantoprazole Sodium (Protonix Ec Tab) 40 mg PO DAILY [facility] Last Admin: 12/19/18 10:49 Dose: 40 mg Spironolactone (Aldactone) 25 mg PO BID [facility] Last Admin: 12/19/18 17:27 Dose: Not Given Tamsulosin HCl (Flomax) 0.4 mg PO DAILY [facility] Last Admin: 12/19/18 22:07 Dose: 0.4 mg - Labs Labs: 12/19/18 05:15 12/19/18 05:15 PT 16.1 SECONDS (9.4-12.5) H 12/19/18 05:15 INR 1.42 12/19/18 05:15 APTT 28.6 Seconds (26.9-38.3) 12/19/18 05:15 Attending/Attestation - Attestation I have personally seen and examined this patient.: Yes I have fully participated in the care of the patient.: Yes I have reviewed all pertinent clinical information, including history, physical exam and plan: Yes
--- NOTE | 2018-12-19 16:33 | CP.PCM.PCO ---
Additional Comments - Additional Comments Additional Comments: pt admitted with abdominal pain, ascites , now s/p paracentesis, 2300 fluid drained. MRCP completed today resulted tumor burden, CT abdomen with mets to liver, Liver Surgeon consulted, Hyponatremia improved on IVF per Renal. Further recs per GI. Will continue to monitor clinical status and follow closely.
--- NOTE | 2018-12-19 19:54 | PN ---
DATE: 12/19/2018 SUBJECTIVE: The patient is currently seen with family in the room. He is currently asleep. He remains on normal saline at 50 mL an hour. Sodium has improved from 128 to 131. His potassium is 5.1. The patient's BUN is mildly elevated at 41 with a creatinine of 1.1. Baseline BUN is less than 20. The patient and his are awaiting a discussion with Dr. 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 MEDICATIONS: Medication list reviewed. The patient is currently on Albumisol, Aldactone, Eliquis, Flomax, insulin, Imdur, Lanoxin, meropenem, Protonix, normal saline 50 mL an hour, Tenormin and Tylenol p.r.n. OBJECTIVE: INTAKE AND OUTPUT: Intake is 890, output is 505. VITAL SIGNS: Blood pressure 106/74, pulse of 100, temperature 97.5 with a respiratory rate of 20. Pulse ox is 98%. HEENT: Exam shows him to be normocephalic, atraumatic. Conjunctivae are pink. Sclerae are mildly icteric. NECK: Supple. No neck vein distention. CHEST: Clear to auscultation and percussion. No rales, rhonchi or wheezing. CARDIOVASCULAR: Shows a regular S1, S2 with no audible murmurs. No S3, no S4, no rub. ABDOMEN: Soft. Mildly distended. Positive ascites. Bowel sounds normal. No rebound or guarding. EXTREMITIES: Show no lower extremity cyanosis, clubbing or edema. LABORATORY DATA AND IMAGING: CBC: White blood cell count is 7.5, hemoglobin 13.8 with a platelet count of 99. Chemistries show sodium which is improved at 131 up from 128. Potassium level was 5.1 up from 4.5. I will discontinue Aldactone because of the mild hyperkalemia. BUN is up to 41 with a creatinine of 1.1. A 24-hour urine sodium was low. His random urine sodium was less than 5 with urine osmolality of 773. Liver enzymes are mildly elevated. Albumin level was low at 2.6. Microbiology, blood cultures are negative at 48 hours. Urine cultures are negative. Ascitic fluid Gram stain is pending. Ascitic fluid did have 737 white blood cells and 36,000 red blood cells. ASSESSMENT: Hyponatremia, depletional in nature. We can continue normal saline until his sodium level corrects, at which point in time normal saline will be discontinued. 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 As noted by Dr. Hurd, we can start tolvaptan 15 mg on a p.r.n. basis if the sodium level continues to fall. 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 History of hypertension. The patient is currently normotensive but in the borderline low range. Mild hyperkalemia. I will discontinue Aldactone given his potassium has risen from 4.5 to 5.1. History of diabetes, currently controlled on sliding scale insulin. History of coronary artery disease, status post percutaneous transluminal coronary angioplasty stent, appears to be stable. The patient continues on cardiac medications. Atrial fibrillation. The patient remains on Eliquis therapy. Ascites, likely secondary to malignancy. Final analysis of the paracentesis fluid is pending. PLAN: 1. Continue low volume IV normal saline. 2. Follow labs throughout the weekend. 3. Elevated uric acid level is consistent with depletion of hyponatremia rather than SIADH. 4. Continue empiric antibiotics under the guidance of Infectious Disease. Possible peritonitis. 5. The patient is awaiting a discussion with Dr. Pfeiffer to determine the next course of therapy given the progression of his metastatic small cell cancer of the lung. Tacho Alvarenga MD
[2018-12-20] MEDS: Morphine 2 mg/ml ISec IVP PRN ×4 (06:33→23:34)
[2018-12-20 06:57] LABS: ALB/GLOB RATIO 1.2 (1.1-1.8); ALBUMIN 2.8 g/dL (3.0-4.8); ALT/SGPT 81 U/L (7-56); AST/SGOT 154 U/L (17-59); BLOOD UREA NITROGEN 45 mg/dL (7-21); CALCIUM 9.4 mg/dL (8.4-10.5); GFR NON-AFRICAN AMERICAN > 60
[2018-12-20 07:07] LABS: HEMOGLOBIN 14.2 g/dL (14.0-18.0); MEAN CELL VOLUME 93.3 fl (80.0-105.0); MEAN CORPUSCULAR HEMOGLOBIN 32.6 pg (25.0-35.0); MEAN PLATELET VOLUME 9.7 fl (7.0-11.0); RBC 4.35 10^6/uL (3.5-6.1); RED CELL DISTRIBUTION WIDTH 15.8 % (11.5-14.5); WHITE BLOOD COUNT 10.7 10^3/uL (4.5-11.0)
[2018-12-20] MEDS: Insulin Reg-LOW-Coverage SC SCH ×4 (09:03→22:07)
--- NOTE | 2018-12-20 10:31 | PN ---
DATE: 12/20/2018 SUBJECTIVE: The patient is currently seen sitting in a chair beside his bed, family is in the room. The patient still remains on clear liquids. His MRCP that was done yesterday showed cirrhosis with extensive tumor involvement. Severe ascites, marked thickening of the gallbladder wall, but no evidence for common duct stone. Mesenteric adenopathy. The patient is awaiting further guidance from his oncologist. His sodium level has improved that is currently up to 132. He is developing some mild lower extremity edema with the increasing ascites. I will discontinue IV fluid hydration. MEDICATIONS: Medication list reviewed. The patient is currently on Aldactone 25 mg twice a day, Eliquis, Flomax, insulin, Imdur, digoxin, meropenem, morphine, Protonix, normal saline will be discontinued, Tenormin, and Tylenol p.r.n. OBJECTIVE: INTAKE/OUTPUT: Intake charted is 120 mL, output is not charted. VITAL SIGNS: Blood pressure is 97/65, pulse is 80, respiratory rate is 20, temperature is 97.5. HEENT: Shows him to be normocephalic, atraumatic. Conjunctivae are pink. Sclerae are mildly icteric. NECK: Supple. No neck vein distention. CHEST: Clear to auscultation and percussion. No rales, rhonchi or wheezing, has a port in his right chest wall. CARDIOVASCULAR: Shows a regular rate and rhythm with no audible murmurs, rubs or gallops. ABDOMEN: Soft. Mildly distended. Positive ascites. Bowel sounds normal. No rebound, no guarding. EXTREMITIES: Show trace to 1+ ankle edema. LABORATORY DATA AND IMAGING: CBC white blood cell count 10.7, hemoglobin 14.2, platelet count is 99,000. Chemistries show electrolytes which are normal. Sodium 132, potassium is 5.0 today and we will place Aldactone temporarily on hold. Chloride is 99. CO2 is 20. BUN remains mildly elevated at 45 up from 28. Creatinine is stable at 1.0. Glucose is 109. Bilirubin 2.8 with elevated liver enzymes and an albumin of 2.8. Microbiology; ascitic fluid cultures and Gram stains are pending. Urine is negative. Blood cultures are negative at 48 hours. ASSESSMENT: 1. Hyponatremia, depletional in nature. This is corrected with normal saline. Presently no evidence for syndrome of inappropriate antidiuretic hormone. We will continue to monitor chemistries closely. 2. 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 Awaiting oncology follow-up and input. 3. History of hypertension. Patient remains normotensive with blood pressures in the low normal range. The patient remains on low-dose Tenormin. 4. Borderline hyperkalemia. I will discontinue Aldactone given his potassium level is in the 5-5.1 range. 5. History of diabetes, currently controlled on insulin. 6. History of arteriosclerotic heart disease status post percutaneous transluminal coronary angioplasty and stent stable. The patient again will continue cardiac medications including beta shazia therapy. 7. History of atrial fibrillation. The patient remains on Eliquis therapy. 8. History of ascites secondary to malignancy. Final analysis of the ascitic fluid is pending. He remains on empiric antibiotic therapy. PLAN: 1. We will discontinue IV normal saline. His sodium level was corrected and the patient is becoming more volume overloaded. 2. Continue to monitor labs on a regular basis. 3. P.r.n. tolvaptan. If his sodium level should drop and the scenario was consistent with SIADH given his cancer. 4. Duration of empiric antibiotic therapy, pending cultures. 5. Family and patient are waiting to have discussion with Dr. Pfeiffer and his team to determine the next course of therapy for his metastatic small cell cancer of the lung. Tacho Alvarenga MD
[2018-12-20] MEDS: Pantoprazole 40 mg EC Tab PO SCH (11:25)
--- NOTE | 2018-12-20 11:57 | PN ---
DATE: 12/20/2018 SUBJECTIVE: The patient seen earlier today. The patient is doing well. No nausea, no vomiting. No fevers and chills. PHYSICAL EXAMINATION: VITAL SIGNS: Temperature is 98, blood pressure is 100/60, respiratory rate of 18, heart rate of 85. HEENT: Unremarkable. NECK: Supple. LUNGS: Have decreased breath sounds. HEART: Normal S1, S2. ABDOMEN: Soft, nontender. No organomegaly. No rebound or guarding. No masses. LABORATORY EXAMINATION: Reveals a white count of 10,000, hemoglobin of 14, platelets of 99. Chemistries reveals a BUN of 45, creatinine of 1.0. Alk phos is 447. Urinalysis is noted and review of orders reveals the patient is on meropenem. Review of labs reveals the patient's peritoneal fluid, ascitic fluid showed 737 WBCs, 51% monos and cultures of that fluid is pending. Urine culture and blood cultures are negative. ASSESSMENT AND PLAN: This is an 78-year-old male who was seen in [facility] [place], bed 2 with #1 is spontaneous bacterial peritonitis in a patient with small cell lung cancer status post radiation and chemotherapy, coronary artery disease and stents, hepatitis C, atrial fibrillation, hyperlipidemia, hypertension, and benign prostatic hyperplasia. Currently on meropenem, awaiting for culture of the peritoneal fluid. The patient did have an MRCP which revealed cirrhosis with extensive tumor involvement and severe ascites, marked thickening of the gallbladder wall no evidence of common bile duct stone. The patient had a HIDA scan, which is negative. Dr. Pfeiffer's progress note is reviewed. We will follow with you. Overall prognosis is poor. Jose L Phan MD
--- NOTE | 2018-12-20 12:31 | CP.PCM.PN ---
<Dwayne King - Last Filed: 12/20/18 12:32> Subjective - Date & Time of Evaluation Date of Evaluation: 12/20/18 Time of Evaluation: 07:00 - Subjective Subjective: PGY5 GI Follow-up Pts seen and examine bedside still abd pain below the umbilicus and Right sided pt states that he is still requiring morphine q 4hrs IV tolerating liquids complaining of difficulty urinating ROS: 12 point ROS conducted, neg other than above Objective - Vital Signs/Intake and Output Vital Signs (last 24 hours): Temp Pulse Resp BP Pulse Ox 97.4 F L 99 H 20 118/76 97 12/20/18 08:31 12/20/18 11:25 12/20/18 08:31 12/20/18 11:25 12/20/18 08:31 Intake and Output: 12/20/18 12/20/18 06:59 18:59 Intake Total 120 Balance 120 - Medications Medications: Current Medications Acetaminophen (Tylenol 325mg Tab) 650 mg PO Q4 PRN PRN Reason: Pain, Mild (1-3) Last Admin: 12/18/18 20:11 Dose: 650 mg Apixaban (Eliquis) 5 mg PO BID [facility]; Protocol Last Admin: 12/20/18 11:24 Dose: 5 mg Atenolol (Tenormin) 50 mg PO DAILY [facility] Last Admin: 12/20/18 11:25 Dose: 50 mg Digoxin (Lanoxin) 0.25 mg PO 1400 [facility] Last Admin: 12/19/18 14:34 Dose: 0.25 mg Meropenem (Merrem Iv 1 Gm Premix) 1 gm in 50 mls @ 100 mls/hr IVPB Q8 [facility]; Protocol Stop: 12/26/18 22:01 Last Admin: 12/19/18 22:07 Dose: 100 mls/hr Insulin Human Regular (Humulin R Low) 0 units SC ACHS [facility]; Protocol Last Admin: 12/20/18 09:03 Dose: Not Given Isosorbide Mononitrate (Imdur Er) 30 mg PO DAILY [facility] Last Admin: 12/20/18 11:25 Dose: 30 mg Morphine Sulfate (Morphine) 2 mg IVP Q4H PRN PRN Reason: Pain, severe (8-10) Last Admin: 12/20/18 12:09 Dose: 2 mg Pantoprazole Sodium (Protonix Ec Tab) 40 mg PO DAILY [facility] Last Admin: 12/20/18 11:25 Dose: 40 mg Spironolactone (Aldactone) 25 mg PO BID [facility] Last Admin: 12/20/18 11:24 Dose: 25 mg Tamsulosin HCl (Flomax) 0.4 mg PO DAILY [facility] Last Admin: 12/20/18 11:25 Dose: 0.4 mg - Labs Labs: 12/20/18 05:45 12/20/18 05:45 PT 16.1 SECONDS (9.4-12.5) H 12/19/18 05:15 INR 1.42 12/19/18 05:15 APTT 28.6 Seconds (26.9-38.3) 12/19/18 05:15 - Constitutional Appears: Non-toxic, Chronically Ill - Head Exam Head Exam: ATRAUMATIC, NORMOCEPHALIC - Eye Exam Eye Exam: Normal appearance - ENT Exam ENT Exam: Mucous Membranes Moist, Normal Exam - Neck Exam Neck Exam: Normal Inspection - Respiratory Exam Respiratory Exam: Clear to Ausculation Bilateral, NORMAL BREATHING PATTERN. absent: Rales, Rhonchi, Wheezes, Respiratory Distress - Cardiovascular Exam Cardiovascular Exam: REGULAR RHYTHM, +S1, +S2 - GI/Abdominal Exam GI & Abdominal Exam: Soft, Tenderness (RLQ), Normal Bowel Sounds. 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 montes <Faye Montes V - Last Filed: 12/20/18 23:48> Objective - Vital Signs/Intake and Output Vital Signs (last 24 hours): Temp Pulse Resp BP Pulse Ox 97.3 F L 88 19 111/72 94 L 12/20/18 17:11 12/20/18 18:00 12/20/18 17:11 12/20/18 17:11 12/20/18 17:11 Intake and Output: 12/20/18 12/21/18 18:59 06:59 Intake Total 150 Balance 150 - Medications Medications: Current Medications Acetaminophen (Tylenol 325mg Tab) 650 mg PO Q4 PRN PRN Reason: Pain, Mild (1-3) Last Admin: 12/18/18 20:11 Dose: 650 mg Albumin Human (Albumin Human 25% (12.5 Gm/50 Ml)) 12.5 gm IV BID [facility] Stop: 12/21/18 10:01 Apixaban (Eliquis) 5 mg PO BID [facility]; Protocol Last Admin: 12/20/18 17:47 Dose: 5 mg Atenolol (Tenormin) 50 mg PO DAILY [facility] Last Admin: 12/20/18 11:25 Dose: 50 mg Digoxin (Lanoxin) 0.25 mg PO 1400 [facility] Last Admin: 12/20/18 16:30 Dose: 0.25 mg Meropenem (Merrem Iv 1 Gm Premix) 1 gm in 50 mls @ 100 mls/hr IVPB Q8 [facility]; Protocol Stop: 12/26/18 22:01 Last Admin: 12/20/18 21:19 Dose: 100 mls/hr Insulin Human Regular (Humulin R Low) 0 units SC ACHS [facility]; Protocol Last Admin: 12/20/18 22:07 Dose: Not Given Isosorbide Mononitrate (Imdur Er) 30 mg PO DAILY [facility] Last Admin: 05/18/19 11:25 Dose: 30 mg Morphine Sulfate (Morphine) 2 mg IVP Q4H PRN PRN Reason: Pain, severe (8-10) Last Admin: 12/20/18 23:34 Dose: 2 mg Pantoprazole Sodium (Protonix Ec Tab) 40 mg PO DAILY [facility] Last Admin: 12/20/18 11:25 Dose: 40 mg Spironolactone (Aldactone) 25 mg PO BID [facility] Last Admin: 12/20/18 17:47 Dose: 25 mg Tamsulosin HCl (Flomax) 0.4 mg PO DAILY [facility] Last Admin: 12/20/18 11:25 Dose: 0.4 mg - Labs Labs: 12/20/18 05:45 12/20/18 05:45 PT 16.1 SECONDS (9.4-12.5) H 12/19/18 05:15 INR 1.42 12/19/18 05:15 APTT 28.6 Seconds (26.9-38.3) 12/19/18 05:15 Attending/Attestation - Attestation I have personally seen and examined this patient.: Yes I have fully participated in the care of the patient.: Yes I have reviewed all pertinent clinical information, including history, physical exam and plan: Yes Notes (Text): This patient was seen and evaluated here earlier. This is an addendum to the GI progress note dictated by the fellow. Discussed with the patient's family member who were at bedside and also with the Dr. Pfeiffer Patient still complains of abdominal discomfort. Receiving morphine 2 mg every 4 hours Patient is on full liquid diet now Slight increase in LFTs noticed. Rule out sepsis patient has been on Merrem antibiotic The etiology for the abdominal discomfort unclear. The differential diagnoses include capsular distention . Ascitic fluid cytology was reviewed less likely SBP appears more traumatic Recommend Continue antibiotics as per ID Liquid diet Follow-up LFT Gradually advance the diet if the patient is tolerating 12/20/18 23:44 12/20/18 23:46
--- NOTE | 2018-12-20 12:44 | CON ---
DATE OF CONSULTATION: 12/20/2018 REQUESTING PHYSICIAN: Dr. Pfeiffer. REASON FOR CONSULTATION: Cardiology followup. HISTORY: This is an 78-year-old man with a history of chronic atrial fibrillation, known coronary artery disease status post prior myocardial fraction and multivessel PCI, who has been admitted for treatment of stage IV lung cancer. Cardiac management was requested. He states that he feels fairly well. He is asymptomatic with respect to his atrial fibrillation. His myocardial infarction was over 15 years ago, and he has apparently been stable since that time. He is followed by Dr. Emmanuel Hawkins in [place] and has previous cardiac catheterization and PCI performed at [facility]. He has been maintained on atenolol and digoxin as well as Eliquis for his atrial fibrillation. He has had intermittent ankle edema, which flared up during prior chemotherapy and has worsened on this admission as well. PAST MEDICAL HISTORY: His past medical history is notable for a prior TIA. He had evidence of liver metastases. He was previously treated for hepatitis C. He has a history of BPH, gastroesophageal reflux disease, and hypertension. He was a smoker, who quit over 40 years ago. MEDICATIONS: His current medications include Eliquis 5 mg b.i.d., Flomax, insulin coverage, Imdur 30 mg daily, digoxin 0.25 mg daily, meropenem, Protonix, Tenormin 50 mg daily. ALLERGIES: HE HAS ALLERGY TO PENICILLIN. 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 He is , lives with his in the [place] area. He drinks alcohol occasionally. He quit smoking over 40 years ago. FAMILY HISTORY: Both parents are , cause unknown. There is no family history of premature heart disease. REVIEW OF SYSTEMS: Twelve-point review of systems is notable for increasing leg edema as well as scrotal edema. He has had no PND, orthopnea. He underwent paracentesis, but has noticed increasing abdominal girth as well. PHYSICAL EXAMINATION: GENERAL: He is a chronically ill-appearing elderly man. VITAL SIGNS: His blood pressure is 118/76 with a pulse of 90 in atrial fibrillation, respirations are 16. He is afebrile. HEENT: Normocephalic, atraumatic. NECK: Supple. No JVD noted. CHEST: Bilateral scattered rhonchi heard. HEART: PMI displaced laterally with an irregularly irregular rhythm. Systolic murmur present at the lower left sternal border. ABDOMEN: Soft and protuberant. Bowel sounds are present. EXTREMITIES: 2+ leg and thigh edema. SKIN: Warm and dry. PSYCHIATRIC: Normal mood and affect. NEUROLOGIC: Alert and oriented x3. No gross motor or sensory deficits notable. DIAGNOSTIC DATA: White count is 10.7, hemoglobin and hematocrit are 14.2 and 48.6 with a platelet count of 99,000. PT/PTT are 16.1 and 28.6. Potassium 5, sodium 132, BUN and creatinine are 45 and 1. AST and ALT are 154 and 81. Digoxin level is 1.6. Electrocardiogram initially showed atrial fibrillation with rapid ventricular response, prior anteroseptal wall myocardial fraction pattern cannot be excluded. Chest x-ray was not found, however, CT of the chest showed evidence of a small pericardial effusion, trace pleural effusions, and calcific pleural plaques. CT of the abdomen revealed evidence of metastatic tumor in the liver as well as ascites and retroperitoneal and mesenteric adenopathy. IMPRESSION: 1. Chronic atrial fibrillation, appears controlled on current regimen. 2. Coronary artery disease, status post remote percutaneous coronary intervention, appears clinically stable at the present time. 3. Metastatic lung cancer with liver metastasis, undergoing therapy. 4. Peripheral edema, likely secondary to liver disease. 5. The rest of problems as noted. RECOMMENDATIONS: His current cardiac medications should continue at this time. His digoxin dosing is high for his age, but its level is in the therapeutic range and can continue. Spirolactone can be added to his regimen in an attempt to improve diuresis. His renal function as well as sodium and potassium levels will need to be monitored. Thank you for this consultation. I will be happy to follow along through his hospital course as needed. Shawn Arevalo MD
[2018-12-20] MEDS: Digoxin 250 mcg (0.25 mg) Tab PO SCH (16:30)
[2018-12-20] MEDS: Meropenem IV 1 gm in NS 1 GM/50 ML BAG IVPB SCH ×2 (16:31→21:19)
[2018-12-20] MEDS ORDERED: Albumin Human 25% (12.5 gm/50 ml) IV ONE (17:41)
--- NOTE | 2018-12-20 18:00 | CP.PCM.PN ---
<JrMedardo Ravi - Last Filed: 12/20/18 17:49> Subjective - Date & Time of Evaluation Date of Evaluation: 12/20/18 Time of Evaluation: 17:49 - Subjective Subjective: Heme onc and medicine progress note - Jr PGY - 2 Patient seen and examined at bedside. Patient had less pain overnight and is feeling relatively better. Is still requiring morphine q4 hours for pain. All family at bedside. Objective - Vital Signs/Intake and Output Vital Signs (last 24 hours): Temp Pulse Resp BP Pulse Ox 97.3 F L 87 19 111/72 94 L 12/20/18 17:11 12/20/18 17:11 12/20/18 17:11 12/20/18 17:11 12/20/18 17:11 Intake and Output: 12/20/18 12/20/18 06:59 18:59 Intake Total 120 Balance 120 - Medications Medications: Current Medications Acetaminophen (Tylenol 325mg Tab) 650 mg PO Q4 PRN PRN Reason: Pain, Mild (1-3) Last Admin: 12/18/18 20:11 Dose: 650 mg Albumin Human (Albumin Human 25% (12.5 Gm/50 Ml)) 12.5 gm IV BID [facility] Stop: 12/21/18 10:01 Apixaban (Eliquis) 5 mg PO BID [facility]; Protocol Last Admin: 12/20/18 17:47 Dose: 5 mg Atenolol (Tenormin) 50 mg PO DAILY [facility] Last Admin: 12/20/18 11:25 Dose: 50 mg Digoxin (Lanoxin) 0.25 mg PO 1400 [facility] Last Admin: 12/20/18 16:30 Dose: 0.25 mg Meropenem (Merrem Iv 1 Gm Premix) 1 gm in 50 mls @ 100 mls/hr IVPB Q8 [facility]; Protocol Stop: 12/26/18 22:01 Last Admin: 12/20/18 16:31 Dose: 100 mls/hr Insulin Human Regular (Humulin R Low) 0 units SC ACHS [facility]; Protocol Last Admin: 12/20/18 17:47 Dose: 1 unit Isosorbide Mononitrate (Imdur Er) 30 mg PO DAILY [facility] Last Admin: 12/20/18 11:25 Dose: 30 mg Morphine Sulfate (Morphine) 2 mg IVP Q4H PRN PRN Reason: Pain, severe (8-10) Last Admin: 12/20/18 16:34 Dose: 2 mg Pantoprazole Sodium (Protonix Ec Tab) 40 mg PO DAILY [facility] Last Admin: 12/20/18 11:25 Dose: 40 mg Spironolactone (Aldactone) 25 mg PO BID [facility] Last Admin: 12/20/18 17:47 Dose: 25 mg Tamsulosin HCl (Flomax) 0.4 mg PO DAILY [facility] Last Admin: 12/20/18 11:25 Dose: 0.4 mg - Labs Labs: 12/20/18 05:45 12/20/18 05:45 PT 16.1 SECONDS (9.4-12.5) H 12/19/18 05:15 INR 1.42 12/19/18 05:15 APTT 28.6 Seconds (26.9-38.3) 12/19/18 05:15 - Constitutional Appears: Well - Head Exam Head Exam: ATRAUMATIC, NORMAL INSPECTION, NORMOCEPHALIC - Eye Exam Eye Exam: EOMI, Normal appearance, PERRL Pupil Exam: NORMAL ACCOMODATION, PERRL - ENT Exam ENT Exam: Mucous Membranes Moist, Normal Exam - Neck Exam Neck Exam: Full ROM, Normal Inspection. absent: Lymphadenopathy - Respiratory Exam Respiratory Exam: Clear to Ausculation Bilateral, NORMAL BREATHING PATTERN - Cardiovascular Exam Cardiovascular Exam: REGULAR RHYTHM, +S1, +S2. absent: Murmur - GI/Abdominal Exam GI & Abdominal Exam: Soft, Normal Bowel Sounds. absent: Tenderness - Extremities Exam Extremities Exam: Full ROM, Normal Capillary Refill, Normal Inspection. 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 Patient remains afebrile and without SIRS criteria; Budd Chiari is ruled out with abdominal duplex. Given this information, patient's presentation can be due to severe tumor burden and possible retroperitoneal involvement. 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 However, also on the differential is SBP as well as cholecystitis. We will currently remain cautious with our management. Plan - Continue patient on Albumin and Aldactone for ascites - Anti-hypertensives continued with holding parameters, SBP < 100 and/or HR < 60 - Continue Merrem as per Dr. Phan; since no surgical intervention, we will continue to treat the patient medically - Discontinue fluid hydration; hyponatremia has resolved - Continue Eliquis for A-Fib - Keep on clear liquid diet for now - Consultations for Dr. Bernard Barron, Dr. Hurd, Dr. Montes, Dr. Juarez, Dr. Fink, and Dr. Mederos placed - GI/DVT ppx with protonix/eliquis <Tram Pfeiffer - Last Filed: 12/21/18 22:04> Objective - Vital Signs/Intake and Output Vital Signs (last 24 hours): Temp Pulse Resp BP Pulse Ox 97.6 F 80 19 93/67 L 97 12/21/18 16:30 12/21/18 18:00 12/21/18 16:30 12/21/18 16:30 12/21/18 16:30 - Medications Medications: Current Medications Acetaminophen (Tylenol 325mg Tab) 650 mg PO Q4 PRN PRN Reason: Pain, Mild (1-3) Last Admin: 12/18/18 20:11 Dose: 650 mg Apixaban (Eliquis) 5 mg PO BID [facility]; Protocol Last Admin: 12/21/18 18:20 Dose: 5 mg Atenolol (Tenormin) 50 mg PO DAILY [facility] Last Admin: 12/21/18 09:55 Dose: 50 mg Digoxin (Lanoxin) 0.25 mg PO 1400 [facility] Last Admin: 12/21/18 15:23 Dose: 0.25 mg Meropenem (Merrem Iv 1 Gm Premix) 1 gm in 50 mls @ 100 mls/hr IVPB Q8 [facility]; Protocol Stop: 12/26/18 22:01 Last Admin: 12/21/18 21:33 Dose: 100 mls/hr Insulin Human Regular (Humulin R Low) 0 units SC ACHS [facility]; Protocol Last Admin: 12/21/18 21:49 Dose: Not Given Isosorbide Mononitrate (Imdur Er) 30 mg PO DAILY [facility] Last Admin: 12/21/18 09:55 Dose: 30 mg Morphine Sulfate (Morphine) 2 mg IVP Q4H PRN PRN Reason: Pain, severe (8-10) Last Admin: 12/21/18 19:59 Dose: 2 mg Pantoprazole Sodium (Protonix Ec Tab) 40 mg PO DAILY [facility] Last Admin: 12/21/18 09:55 Dose: 40 mg Tamsulosin HCl (Flomax) 0.4 mg PO DAILY [facility] Last Admin: 12/21/18 09:55 Dose: 0.4 mg - Labs Labs: 12/21/18 05:45 12/21/18 06:25 PT 16.1 SECONDS (9.4-12.5) H 12/19/18 05:15 INR 1.42 12/19/18 05:15 APTT 28.6 Seconds (26.9-38.3) 12/19/18 05:15 Attending/Attestation - Attestation I have personally seen and examined this patient.: Yes I have fully participated in the care of the patient.: Yes I have reviewed all pertinent clinical information, including history, physical exam and plan: Yes
[2018-12-21] MEDS: Meropenem IV 1 gm in NS 1 GM/50 ML BAG IVPB SCH ×3 (05:04→21:33)
[2018-12-21] MEDS: Albumin Human 25% (12.5 gm/50 ml) IV SCH ×2 (05:27→18:21)
[2018-12-21 05:56] LABS: HEMOGLOBIN 14.5 g/dL (14.0-18.0); MEAN CELL VOLUME 92.9 fl (80.0-105.0); MEAN CORPUSCULAR HEMOGLOBIN 33.2 pg (25.0-35.0); MEAN CORPUSCULAR HGB CONC 35.7 g/dl (31.0-37.0); MEAN PLATELET VOLUME 10.2 fl (7.0-11.0); RBC 4.37 10^6/uL (3.5-6.1); RED CELL DISTRIBUTION WIDTH 15.9 % (11.5-14.5); WHITE BLOOD COUNT 11.1 10^3/uL (4.5-11.0)
[2018-12-21] MEDS: Insulin Reg-LOW-Coverage SC SCH ×4 (08:09→21:49)
[2018-12-21 08:29] LABS: ALB/GLOB RATIO 1.3 (1.1-1.8); ALBUMIN 2.9 g/dL (3.0-4.8); ALT/SGPT 136 U/L (7-56); AST/SGOT 278 U/L (17-59); BLOOD UREA NITROGEN 55 mg/dL (7-21); CALCIUM 9.8 mg/dL (8.4-10.5); GFR NON-AFRICAN AMERICAN 58
[2018-12-21] MEDS: Pantoprazole 40 mg EC Tab PO SCH (09:55)
--- NOTE | 2018-12-21 11:30 | PN ---
DATE: 12/21/2018 SUBJECTIVE: The patient is in bed, in no acute distress. PHYSICAL EXAMINATION: VITAL SIGNS: Temperature is 97, blood pressure is 104/70, and respiratory rate of 20. HEENT: Unremarkable. NECK: Supple. LUNGS: Decreased breath sounds. HEART: Normal S1 and S2. ABDOMEN: Mild tenderness still, but no rebound, no guarding, no masses. LABORATORY EXAMINATION: Reveals a white count of 11,000 and chemistries are noted. The LFTs are elevated. Alk phos is 798. Urinalysis is noted. The ascitic fluid has 737 WBCs. Microbiology reveals the fluid has no cultures or no growth, and Gram stains negative. Blood cultures negative. Urine cultures negative. ASSESSMENT AND PLAN: This is an 78-year-old male, who was seen earlier today with; spontaneous bacterial peritonitis and the patient with small cell lung cancer, status post radiation and chemotherapy, coronary artery disease, hepatitis C, hyperlipidemia, hypertension, and benign prostatic hyperplasia. Cultures are negative. May be able to switch the p.o. antibiotics in the next [address] Montes, the cannery tender engineer's note is reviewed. Overall prognosis is quite poor. The patient with malignancy with metastasis to the liver and gallbladder. The patient does have extensive tumor involvement with severe ascites and spontaneous bacterial peritonitis, is ruled out. The patient had abdominal ultrasound. Jose L Phan MD
[2018-12-21] MEDS: Morphine 2 mg/ml ISec IVP PRN ×2 (13:30→19:59)
--- NOTE | 2018-12-21 14:08 | CP.PCM.PN ---
<Dwayne King - Last Filed: 12/21/18 14:18> Subjective - Date & Time of Evaluation Date of Evaluation: 12/21/18 Time of Evaluation: 07:00 - Subjective Subjective: PGY5 GI Follow-up Pt seen and examined bedside abd present but slightly improved +BM abd pain in RUQ and RLQ ROS: 12 point ROS conducted, neg other than above Objective - Vital Signs/Intake and Output Vital Signs (last 24 hours): Temp Pulse Resp BP Pulse Ox 97.6 F 88 20 104/71 96 12/21/18 08:19 12/21/18 10:00 12/21/18 08:19 12/21/18 09:55 12/21/18 08:19 Intake and Output: 12/21/18 12/21/18 06:59 18:59 Intake Total 150 Balance 150 - Medications Medications: Current Medications Acetaminophen (Tylenol 325mg Tab) 650 mg PO Q4 PRN PRN Reason: Pain, Mild (1-3) Last Admin: 12/18/18 20:11 Dose: 650 mg Albumin Human (Albumin Human 25% (12.5 Gm/50 Ml)) 12.5 gm IV Q12H [facility] Stop: 12/21/18 17:31 Last Admin: 12/21/18 05:27 Dose: 12.5 gm Apixaban (Eliquis) 5 mg PO BID [facility]; Protocol Last Admin: 12/21/18 09:53 Dose: 5 mg Atenolol (Tenormin) 50 mg PO DAILY [facility] Last Admin: 12/21/18 09:55 Dose: 50 mg Digoxin (Lanoxin) 0.25 mg PO 1400 [facility] Last Admin: 12/20/18 16:30 Dose: 0.25 mg Meropenem (Merrem Iv 1 Gm Premix) 1 gm in 50 mls @ 100 mls/hr IVPB Q8 [facility]; Protocol Stop: 12/26/18 22:01 Last Admin: 12/21/18 05:04 Dose: 100 mls/hr Insulin Human Regular (Humulin R Low) 0 units SC ACHS [facility]; Protocol Last Admin: 12/21/18 08:09 Dose: Not Given Isosorbide Mononitrate (Imdur Er) 30 mg PO DAILY [facility] Last Admin: 12/21/18 09:55 Dose: 30 mg Morphine Sulfate (Morphine) 2 mg IVP Q4H PRN PRN Reason: Pain, severe (8-10) Last Admin: 12/21/18 13:30 Dose: 2 mg Pantoprazole Sodium (Protonix Ec Tab) 40 mg PO DAILY [facility] Last Admin: 12/21/18 09:55 Dose: 40 mg Tamsulosin HCl (Flomax) 0.4 mg PO DAILY [facility] Last Admin: 12/21/18 09:55 Dose: 0.4 mg - Labs Labs: 12/21/18 05:45 12/21/18 06:25 PT 16.1 SECONDS (9.4-12.5) H 12/19/18 05:15 INR 1.42 12/19/18 05:15 APTT 28.6 Seconds (26.9-38.3) 12/19/18 05:15 - Constitutional Appears: Non-toxic, No Acute Distress - Head Exam Head Exam: ATRAUMATIC, NORMOCEPHALIC - Eye Exam Eye Exam: Normal appearance - ENT Exam ENT Exam: Mucous Membranes Moist, Normal Exam - Respiratory Exam Respiratory Exam: Clear to Ausculation Bilateral, NORMAL BREATHING PATTERN. absent: Rales, Rhonchi, Wheezes, Respiratory Distress - Cardiovascular Exam Cardiovascular Exam: REGULAR RHYTHM, +S1, +S2 - GI/Abdominal Exam GI & Abdominal Exam: Distended, Soft, Tenderness (RUQ and RLQ), Normal Bowel Sounds - Extremities Exam Extremities Exam: absent: Joint Swelling, Pedal Edema - Neurological Exam Neurological Exam: Alert, Awake, Oriented x3 - Psychiatric Exam Psychiatric exam: Normal Affect, Normal Mood - Skin Skin Exam: Dry, Intact, Normal Color, Warm Assessment and Plan - Assessment and Plan (Free Text) Assessment: Patient is a 78 year old male with a past medical history significant for 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 montes <Faye Montes V - Last Filed: 12/21/18 23:55> Objective - Vital Signs/Intake and Output Vital Signs (last 24 hours): Temp Pulse Resp BP Pulse Ox 97.6 F 76 19 93/67 L 97 12/21/18 16:30 12/21/18 22:00 12/21/18 16:30 12/21/18 16:30 12/21/18 16:30 - Medications Medications: Current Medications Acetaminophen (Tylenol 325mg Tab) 650 mg PO Q4 PRN PRN Reason: Pain, Mild (1-3) Last Admin: 12/18/18 20:11 Dose: 650 mg Apixaban (Eliquis) 5 mg PO BID [facility]; Protocol Last Admin: 12/21/18 18:20 Dose: 5 mg Atenolol (Tenormin) 50 mg PO DAILY [facility] Last Admin: 12/21/18 09:55 Dose: 50 mg Digoxin (Lanoxin) 0.25 mg PO 1400 [facility] Last Admin: 12/21/18 15:23 Dose: 0.25 mg Meropenem (Merrem Iv 1 Gm Premix) 1 gm in 50 mls @ 100 mls/hr IVPB Q8 [facility]; Protocol Stop: 12/26/18 22:01 Last Admin: 12/21/18 21:33 Dose: 100 mls/hr Insulin Human Regular (Humulin R Low) 0 units SC ACHS [facility]; Protocol Last Admin: 12/21/18 21:49 Dose: Not Given Isosorbide Mononitrate (Imdur Er) 30 mg PO DAILY [facility] Last Admin: 12/21/18 09:55 Dose: 30 mg Morphine Sulfate (Morphine) 2 mg IVP Q4H PRN PRN Reason: Pain, severe (8-10) Last Admin: 12/21/18 19:59 Dose: 2 mg Pantoprazole Sodium (Protonix Ec Tab) 40 mg PO DAILY [facility] Last Admin: 12/21/18 09:55 Dose: 40 mg Tamsulosin HCl (Flomax) 0.4 mg PO DAILY [facility] Last Admin: 12/21/18 09:55 Dose: 0.4 mg - Labs Labs: 12/21/18 05:45 12/21/18 06:25 PT 16.1 SECONDS (9.4-12.5) H 12/19/18 05:15 INR 1.42 12/19/18 05:15 APTT 28.6 Seconds (26.9-38.3) 12/19/18 05:15 Attending/Attestation - Attestation I have personally seen and examined this patient.: Yes I have fully participated in the care of the patient.: Yes I have reviewed all pertinent clinical information, including history, physical exam and plan: Yes Notes (Text): This patient was seen and evaluated along with the GI fellow earlier. This is an addendum to the GI progress report dictated by the fellow. Patient still complains of some abdominal discomfort this is stable. We will start the patient on pured diet LFT appears to be showing upward trend. Increase LFT may be secondary to drug- induced On examination abdomen soft nontender We will discuss with ID in the changing the medication Follow-up LFT 12/21/18 23:50
[2018-12-21] MEDS: Digoxin 250 mcg (0.25 mg) Tab PO SCH (15:23)
[2018-12-22 07:28] LABS: HEMOGLOBIN 14.8 g/dL (14.0-18.0); MEAN CELL VOLUME 93.5 fl (80.0-105.0); MEAN CORPUSCULAR HEMOGLOBIN 33.1 pg (25.0-35.0); MEAN CORPUSCULAR HGB CONC 35.4 g/dl (31.0-37.0); MEAN PLATELET VOLUME 9.9 fl (7.0-11.0); RBC 4.47 10^6/uL (3.5-6.1); RED CELL DISTRIBUTION WIDTH 16.3 % (11.5-14.5); WHITE BLOOD COUNT 12.3 10^3/uL (4.5-11.0)
[2018-12-22 07:49] LABS: ALB/GLOB RATIO 1.3 (1.1-1.8); ALBUMIN 2.9 g/dL (3.0-4.8); CALCIUM 9.9 mg/dL (8.4-10.5)
[2018-12-22] MEDS: Meropenem IV 1 gm in NS 1 GM/50 ML BAG IVPB SCH ×2 (07:57→15:04)
[2018-12-22] MEDS: Insulin Reg-LOW-Coverage SC SCH ×4 (08:58→21:52)
--- NOTE | 2018-12-22 09:45 | CP.PCM.PN ---
<JrMedardo Ravi - Last Filed: 12/22/18 09:41> Subjective - Date & Time of Evaluation Date of Evaluation: 12/22/18 Time of Evaluation: 09:41 - Subjective Subjective: Heme/onc and medicine progress note - Jr PGY - 2 Patient seen and examined at bedside. Patient continues to have abdominal pain; had small bowel movement overnight. Currently without complaints, is his usual pleasant self. Objective - Vital Signs/Intake and Output Vital Signs (last 24 hours): Temp Pulse Resp BP Pulse Ox 97.3 F L 79 20 93/66 L 95 12/22/18 09:01 12/22/18 09:01 12/22/18 09:01 12/22/18 09:01 12/22/18 09:01 Intake and Output: 12/22/18 12/22/18 06:59 18:59 Intake Total 120 Output Total 140 Balance -20 - Medications Medications: Current Medications Acetaminophen (Tylenol 325mg Tab) 650 mg PO Q4 PRN PRN Reason: Pain, Mild (1-3) Last Admin: 12/18/18 20:11 Dose: 650 mg Apixaban (Eliquis) 5 mg PO BID [facility]; Protocol Last Admin: 12/21/18 18:20 Dose: 5 mg Atenolol (Tenormin) 50 mg PO DAILY [facility] Last Admin: 12/21/18 09:55 Dose: 50 mg Digoxin (Lanoxin) 0.25 mg PO 1400 [facility] Last Admin: 12/21/18 15:23 Dose: 0.25 mg Meropenem (Merrem Iv 1 Gm Premix) 1 gm in 50 mls @ 100 mls/hr IVPB Q8 [facility]; Protocol Stop: 12/26/18 22:01 Last Admin: 12/22/18 07:57 Dose: 100 mls/hr Insulin Human Regular (Humulin R Low) 0 units SC ACHS [facility]; Protocol Last Admin: 12/22/18 08:58 Dose: Not Given Isosorbide Mononitrate (Imdur Er) 30 mg PO DAILY [facility] Last Admin: 12/21/18 09:55 Dose: 30 mg Morphine Sulfate (Morphine) 2 mg IVP Q4H PRN PRN Reason: Pain, severe (8-10) Last Admin: 12/21/18 19:59 Dose: 2 mg Pantoprazole Sodium (Protonix Ec Tab) 40 mg PO DAILY [facility] Last Admin: 12/21/18 09:55 Dose: 40 mg Tamsulosin HCl (Flomax) 0.4 mg PO DAILY [facility] Last Admin: 12/21/18 09:55 Dose: 0.4 mg - Labs Labs: 12/22/18 07:15 12/22/18 07:15 PT 16.1 SECONDS (9.4-12.5) H 12/19/18 05:15 INR 1.42 12/19/18 05:15 APTT 28.6 Seconds (26.9-38.3) 12/19/18 05:15 - Constitutional Appears: Well - Head Exam Head Exam: ATRAUMATIC, NORMAL INSPECTION, NORMOCEPHALIC - Eye Exam Eye Exam: EOMI, Normal appearance, PERRL Pupil Exam: NORMAL ACCOMODATION, PERRL - ENT Exam ENT Exam: Mucous Membranes Moist, Normal Exam - Neck Exam Neck Exam: Full ROM, Normal Inspection. absent: Lymphadenopathy - Respiratory Exam Respiratory Exam: Clear to Ausculation Bilateral, NORMAL BREATHING PATTERN - Cardiovascular Exam Cardiovascular Exam: REGULAR RHYTHM, +S1, +S2. absent: Murmur - GI/Abdominal Exam GI & Abdominal Exam: Soft, Normal Bowel Sounds. absent: Tenderness - Extremities Exam Extremities Exam: Full ROM, Normal Capillary Refill, Normal Inspection. 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 Patient remains afebrile and without SIRS criteria; Budd Chiari is ruled out with abdominal duplex. Given this information, patient's presentation can be due to severe tumor burden and possible retroperitoneal involvement. 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 However, also on the differential is SBP as well as cholecystitis. We will currently remain cautious with our management. Over the past few days, patient's liver function has been deteriorating. On the differential is tumor burden vs drug induced as well as possible obstruction. Although he clinically does not seem to have cholecystitis, it must remain on the differential. Plan - Continue patient on Albumin and Aldactone for ascites - Anti-hypertensives continued with holding parameters, SBP < 100 and/or HR < 60 - Continue Merrem as per Dr. Phan; Recent note reviewed, will see if patient should be changed to po medications - Discontinue fluid hydration; hyponatremia has resolved - Continue Eliquis for A-Fib; Continue dig and atenolol - Diet has been advanced - Consultations for Dr. Bernard Barron, Dr. Hurd, Dr. Montes, Dr. Juarez, Dr. Fink, and Dr. Mederos placed - GI/DVT ppx with protonix/eliquis <Tram Pfeiffer P - Last Filed: 12/24/18 16:14> Objective - Vital Signs/Intake and Output Vital Signs (last 24 hours): Temp Pulse Resp BP Pulse Ox 97.2 F L 72 20 103/67 95 12/23/18 17:00 12/23/18 17:00 12/23/18 17:00 12/23/18 17:00 12/23/18 17:00 - Labs Labs: 12/23/18 10:45 12/23/18 10:45 PT 18.8 SECONDS (9.4-12.5) H 12/23/18 10:45 INR 1.66 12/23/18 10:45 APTT 28.6 Seconds (26.9-38.3) 12/19/18 05:15 Attending/Attestation - Attestation I have personally seen and examined this patient.: Yes I have fully participated in the care of the patient.: Yes I have reviewed all pertinent clinical information, including history, physical exam and plan: Yes
[2018-12-22] MEDS: Pantoprazole 40 mg EC Tab PO SCH (10:27)
--- NOTE | 2018-12-22 11:37 | CP.PCM.PN ---
<FernandoDavid - Last Filed: 12/22/18 16:34> Subjective - Date & Time of Evaluation Date of Evaluation: 12/22/18 Time of Evaluation: 10:00 - Subjective Subjective: [facility] Resident- Progress Note on Behalf of Dr. Montes Subjective: Patient seen and examined at bedside. No acute events overnight. States abdominal pain has improved relative to baseline. States he is more fatigued compared to last week. Tolerating diet. Denies nausea, vomiting, diarrhea, constipation, bright red blood per rectum, and change in stool caliber. Further denies fevers, chills, headache, visual/auditory changes, chest pain, SOB, and focal weakness. 12 point ROS negative except as indicated in HPI Physical Examination: - Constitutional Appears: Non-toxic, No Acute Distress - Head Exam Head Exam: ATRAUMATIC, NORMOCEPHALIC - Eye Exam Eye Exam: EOMI, Normal appearance - ENT Exam ENT Exam: Mucous Membranes Moist - Neck Exam Neck Exam: Full ROM - Respiratory Exam Respiratory Exam: Clear to Auscultation Bilateral, NORMAL BREATHING PATTERN Additional comments: Right chest wall port noted, no signs of infection of the surrounding soft tissues - Cardiovascular Exam Cardiovascular Exam: REGULAR RHYTHM, +S1, +S2 - GI/Abdominal Exam GI & Abdominal Exam: Soft. absent: Firm, Guarding, Rebound, Rigid - Extremities Exam Extremities Exam: no clubbing, no cyanosis, absent: Calf Tenderness - Neurological Exam Neurological Exam: Alert, Awake, Oriented x3 - Psychiatric Exam Psychiatric exam: Normal Affect, Normal Mood - Skin Skin Exam: Dry, Warm Imaging Reviewed: 12/17/18 Abdomen/Pelvis CT with oral and IV contrast: 1. Tumor progression in the liver. 2. New abdominal and pelvic ascites. 3. Abnormal gallbladder consisting of gallbladder wall thickening and gallstones which appear to be lodged in the gallbladder neck. The findings are suspicious for acute cholecystitis. 4. Residual retroperitoneal, mesenteric adenopathy. 5. New edema and anasarca. 12/17/[address] without contrast: 1. No acute findings related to/ accounting for the clinical presentation. 2. Trace pleural effusions. 3. Small pericardial effusion. 4. Pleural manifestations of prior asbestos exposure. 12/17/2018 Abdominal Ultrasound: Heterogeneous liver with the hepatic steatosis and/or other hepatic parenchymal pathology. A dominant the left hepatic lobe mass is noted-this has been present and referenced on prior PET-CT studies- neoplastic origin is inferred-recurrence is possible based on recent interval change referenced in most recent PET-CT study. Gallbladder is not particularly distended-the wall is thickened with pericholecystic fluid. Gallbladder wall edema present. Gallstones present. No positive ultrasound Avalos sign. Ascites probably in part contributing to the gallbladder wall thickening and per icholecystic fluid. No gross dilated ducts seen. Multiple bilateral renal cysts- no hydronephrosis. 12/18/2018 HIDA- Normal Hepatobiliary Scan. The cystic duct is patent. 12/19/2018 MRCP- Cirrhosis with extensive tumor involvement. Severe ascites. M arked thickening of the gallbladder wall. No evidence of common duct stone. 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 Ascities- SBP Gallbladder wall edema- likely secondary to low albumin state Cholelithiasis Elevated LFTs Neuroendocrine small cell cancer of the lung with liver mass GERD Hx of Hep C- resolved - increasing LFTs may be drug-induced vs. increased tumor burden- will speak to ID to switch abx - direct bilirubin and INR ordered and pending - patient underwent paracentesis 12/18/2018- removed 2300mL pink, chylous fluid, cell count, cell cytology, albumin, LDH, total protein ordered and pending - administer albumin as ordered - continue soft diet - continue protonix 40mg PO daily - no indication for any endoscopic procedure at this time - pallative care consulted- appreciate recommendations Patient case discussed with and plan approved by attending physician, Dr. Montes. Objective - Vital Signs/Intake and Output Vital Signs (last 24 hours): Temp Pulse Resp BP Pulse Ox 97.3 F L 79 20 93/66 L 95 12/22/18 09:01 12/22/18 10:27 12/22/18 09:01 12/22/18 10:27 12/22/18 09:01 Intake and Output: 05/20/19 05/20/19 06:59 18:59 Intake Total 120 Output Total 140 Balance -20 - Medications Medications: Current Medications Acetaminophen (Tylenol 325mg Tab) 650 mg PO Q4 PRN PRN Reason: Pain, Mild (1-3) Last Admin: 12/18/18 20:11 Dose: 650 mg Apixaban (Eliquis) 5 mg PO BID [facility]; Protocol Last Admin: 12/22/18 10:26 Dose: 5 mg Atenolol (Tenormin) 50 mg PO DAILY [facility] Last Admin: 12/22/18 10:27 Dose: Not Given Digoxin (Lanoxin) 0.25 mg PO 1400 [facility] Last Admin: 12/21/18 15:23 Dose: 0.25 mg Meropenem (Merrem Iv 1 Gm Premix) 1 gm in 50 mls @ 100 mls/hr IVPB Q8 [facility]; Protocol Stop: 12/26/18 22:01 Last Admin: 12/22/18 07:57 Dose: 100 mls/hr Albumin Human (Albumin Human 25% (25 Gm/100 Ml)) 100 mls @ 1 mls/min IVPB Q2H [facility] Stop: 12/22/18 17:39 Last Admin: 12/22/18 11:11 Dose: 1 mls/min Insulin Human Regular (Humulin R Low) 0 units SC ACHS [facility]; Protocol Last Admin: 12/22/18 08:58 Dose: Not Given Isosorbide Mononitrate (Imdur Er) 30 mg PO DAILY [facility] Last Admin: 12/22/18 10:26 Dose: 30 mg Morphine Sulfate (Morphine) 2 mg IVP Q4H PRN PRN Reason: Pain, severe (8-10) Last Admin: 12/21/18 19:59 Dose: 2 mg Pantoprazole Sodium (Protonix Ec Tab) 40 mg PO DAILY [facility] Last Admin: 12/22/18 10:27 Dose: 40 mg Tamsulosin HCl (Flomax) 0.4 mg PO DAILY [facility] Last Admin: 12/22/18 11:12 Dose: 0.4 mg - Labs Labs: 12/22/18 07:15 12/22/18 07:15 PT 16.1 SECONDS (9.4-12.5) H 12/19/18 05:15 INR 1.42 12/19/18 05:15 APTT 28.6 Seconds (26.9-38.3) 12/19/18 05:15 <Patrick Montesamira V - Last Filed: 12/23/18 20:07> Objective - Vital Signs/Intake and Output Vital Signs (last 24 hours): Temp Pulse Resp BP Pulse Ox 97.4 F L 91 H 20 101/65 92 L 12/22/18 17:23 12/22/18 22:00 12/22/18 17:23 12/22/18 17:23 12/22/18 17:23 Intake and Output: 12/22/18 12/23/18 18:59 06:59 Intake Total 640 Output Total 200 Balance 440 - Medications Medications: Current Medications Acetaminophen (Tylenol 325mg Tab) 650 mg PO Q4 PRN PRN Reason: Pain, Mild (1-3) Last Admin: 12/18/18 20:11 Dose: 650 mg Apixaban (Eliquis) 5 mg PO BID [facility]; Protocol Last Admin: 12/22/18 19:19 Dose: 5 mg Atenolol (Tenormin) 50 mg PO DAILY [facility] Last Admin: 12/22/18 10:27 Dose: Not Given Ciprofloxacin (Cipro) 250 mg PO Q12 [facility]; Protocol Stop: 12/25/18 22:01 Last Admin: 12/22/18 21:51 Dose: 250 mg Digoxin (Lanoxin) 0.25 mg PO 1400 [facility] Last Admin: 12/22/18 15:04 Dose: 0.25 mg Insulin Human Regular (Humulin R Low) 0 units SC ACHS [facility]; Protocol Last Admin: 12/22/18 21:52 Dose: Not Given Isosorbide Mononitrate (Imdur Er) 30 mg PO DAILY [facility] Last Admin: 12/22/18 10:26 Dose: 30 mg Morphine Sulfate (Morphine) 2 mg IVP Q4H PRN PRN Reason: Pain, severe (8-10) Last Admin: 12/22/18 20:26 Dose: 2 mg Pantoprazole Sodium (Protonix Ec Tab) 40 mg PO DAILY [facility] Last Admin: 12/22/18 10:27 Dose: 40 mg Tamsulosin HCl (Flomax) 0.4 mg PO DAILY [facility] Last Admin: 12/22/18 11:12 Dose: 0.4 mg - Labs Labs: 12/22/18 07:15 12/22/18 14:45 PT 23.0 SECONDS (9.4-12.5) H 12/22/18 14:45 INR 2.07 12/22/18 14:45 APTT 28.6 Seconds (26.9-38.3) 12/19/18 05:15 Attending/Attestation - Attestation I have personally seen and examined this patient.: Yes I have fully participated in the care of the patient.: Yes I have reviewed all pertinent clinical information, including history, physical exam and plan: Yes Notes (Text): There is a delayed addendum to the GI progress report dictated by the resident. The patient was seen and evaluated along with resident earlier. Had a detailed discussion with the INR and also patient's family. SBP. Continue antibiotics as per ID. Worsening of the renal function continue the albumin. Advance to metastatic lung cancer 12/22/18 23:53 12/23/18 20:05
--- NOTE | 2018-12-22 11:55 | CP.PCM.PN ---
<Jacoby Benson - Last Filed: 12/22/18 15:42> Subjective - Date & Time of Evaluation Date of Evaluation: 12/22/18 Time of Evaluation: 09:55 - Subjective Subjective: Infectious disease progress note: Patient seen and examined at bedside. No acute events overnight. Patient appears more lethargic. C/o abd pain and poor appetite. No other complaints. 12 point ROS performed and negative unless stated above. Objective - Vital Signs/Intake and Output Vital Signs (last 24 hours): Temp Pulse Resp BP Pulse Ox 97.3 F L 79 20 93/66 L 95 12/22/18 09:01 12/22/18 10:27 12/22/18 09:01 12/22/18 10:27 12/22/18 09:01 Intake and Output: 12/22/18 12/22/18 06:59 18:59 Intake Total 120 Output Total 140 Balance -20 - Medications Medications: Current Medications Acetaminophen (Tylenol 325mg Tab) 650 mg PO Q4 PRN PRN Reason: Pain, Mild (1-3) Last Admin: 12/18/18 20:11 Dose: 650 mg Apixaban (Eliquis) 5 mg PO BID [facility]; Protocol Last Admin: 12/22/18 10:26 Dose: 5 mg Atenolol (Tenormin) 50 mg PO DAILY [facility] Last Admin: 12/22/18 10:27 Dose: Not Given Digoxin (Lanoxin) 0.25 mg PO 1400 [facility] Last Admin: 12/21/18 15:23 Dose: 0.25 mg Meropenem (Merrem Iv 1 Gm Premix) 1 gm in 50 mls @ 100 mls/hr IVPB Q8 [facility]; Protocol Stop: 12/26/18 22:01 Last Admin: 12/22/18 07:57 Dose: 100 mls/hr Albumin Human (Albumin Human 25% (25 Gm/100 Ml)) 100 mls @ 1 mls/min IVPB Q2H [facility] Stop: 12/22/18 17:39 Last Admin: 12/22/18 11:11 Dose: 1 mls/min Insulin Human Regular (Humulin R Low) 0 units SC ACHS [facility]; Protocol Last Admin: 12/22/18 08:58 Dose: Not Given Isosorbide Mononitrate (Imdur Er) 30 mg PO DAILY [facility] Last Admin: 12/22/18 10:26 Dose: 30 mg Morphine Sulfate (Morphine) 2 mg IVP Q4H PRN PRN Reason: Pain, severe (8-10) Last Admin: 12/21/18 19:59 Dose: 2 mg Pantoprazole Sodium (Protonix Ec Tab) 40 mg PO DAILY [facility] Last Admin: 12/22/18 10:27 Dose: 40 mg Tamsulosin HCl (Flomax) 0.4 mg PO DAILY [facility] Last Admin: 12/22/18 11:12 Dose: 0.4 mg - Labs Labs: 12/22/18 07:15 12/22/18 07:15 PT 16.1 SECONDS (9.4-12.5) H 12/19/18 05:15 INR 1.42 12/19/18 05:15 APTT 28.6 Seconds (26.9-38.3) 12/19/18 05:15 - Constitutional Appears: No Acute Distress - Eye Exam Eye Exam: EOMI - ENT Exam ENT Exam: Mucous Membranes Moist - Respiratory Exam Respiratory Exam: Clear to Ausculation Bilateral. absent: Wheezes - Cardiovascular Exam Cardiovascular Exam: REGULAR RHYTHM, +S1, +S2 - GI/Abdominal Exam GI & Abdominal Exam: Distended, Soft, Tenderness - Extremities Exam Extremities Exam: absent: Calf Tenderness - Neurological Exam Neurological Exam: Alert, Awake - Skin Skin Exam: Dry, Warm Assessment and Plan - Assessment and Plan (Free Text) Assessment: Spontaneous bacterial peritonitis MT Transaminitis Small cell lung carcinoma on radiation and chemotherapy Coronary artery disease with stents Hepatitis C A. fib on Eliquis Hyperlipidemia Hypertension BPH GERD Completed meropenem Day 6 Transaminitis possibly 2/2 michele vs progression of dx Started on Cipro for 3 days HIDA was neg and MRCP was neg for any obstruction F/u paracentesis pos for SBP - Culture neg however PMN>250 with wbc of 737 Follow-up septic work-up including blood and urine cultures Follow-up surgical, Gastroenterology recommendations Continue to monitor for any changes Case and plan to be reviewed and discussed with Dr. Phan <Jose L Phan - Last Filed: 12/22/18 15:44> Objective - Vital Signs/Intake and Output Vital Signs (last 24 hours): Temp Pulse Resp BP Pulse Ox 97.3 F L 79 20 101/65 95 12/22/18 09:01 12/22/18 10:27 12/22/18 09:01 12/22/18 15:26 12/22/18 09:01 Intake and Output: 12/22/18 12/22/18 06:59 18:59 Intake Total 120 Output Total 140 Balance -20 - Medications Medications: Current Medications Acetaminophen (Tylenol 325mg Tab) 650 mg PO Q4 PRN PRN Reason: Pain, Mild (1-3) Last Admin: 12/18/18 20:11 Dose: 650 mg Apixaban (Eliquis) 5 mg PO BID [facility]; Protocol Last Admin: 12/22/18 10:26 Dose: 5 mg Atenolol (Tenormin) 50 mg PO DAILY [facility] Last Admin: 12/22/18 10:27 Dose: Not Given Ciprofloxacin (Cipro) 250 mg PO Q12 [facility]; Protocol Stop: 12/25/18 22:01 Digoxin (Lanoxin) 0.25 mg PO 1400 [facility] Last Admin: 12/22/18 15:04 Dose: 0.25 mg Albumin Human (Albumin Human 25% (25 Gm/100 Ml)) 100 mls @ 1 mls/min IVPB Q2H [facility] Stop: 12/22/18 17:39 Last Admin: 12/22/18 15:05 Dose: 1 mls/min Insulin Human Regular (Humulin R Low) 0 units SC ACHS [facility]; Protocol Last Admin: 12/22/18 12:19 Dose: Not Given Isosorbide Mononitrate (Imdur Er) 30 mg PO DAILY [facility] Last Admin: 12/22/18 10:26 Dose: 30 mg Morphine Sulfate (Morphine) 2 mg IVP Q4H PRN PRN Reason: Pain, severe (8-10) Last Admin: 12/21/18 19:59 Dose: 2 mg Pantoprazole Sodium (Protonix Ec Tab) 40 mg PO DAILY [facility] Last Admin: 12/22/18 10:27 Dose: 40 mg Tamsulosin HCl (Flomax) 0.4 mg PO DAILY [facility] Last Admin: 12/22/18 11:12 Dose: 0.4 mg - Labs Labs: 12/22/18 07:15 12/22/18 14:45 PT 23.0 SECONDS (9.4-12.5) H 12/22/18 14:45 INR 2.07 12/22/18 14:45 APTT 28.6 Seconds (26.9-38.3) 12/19/18 05:15 Attending/Attestation - Attestation I have personally seen and examined this patient.: Yes I have fully participated in the care of the patient.: Yes I have reviewed all pertinent clinical information, including history, physical exam and plan: Yes
[2018-12-22 11:56] LABS: BILIRUBIN,DIRECT 6.6 mg/dL (0.0-0.4)
[2018-12-22] MEDS: Digoxin 250 mcg (0.25 mg) Tab PO SCH (15:04)
[2018-12-22 15:10] LABS: INR 2.07
--- NOTE | 2018-12-22 18:23 | CARD ---
APPROVED REPORT Date of service: 12/22/2018 EKG Measurement Heart [id number] <Conclusion> Atrial fibrillation Low voltage QRS Cannot rule out Inferior infarct, age undetermined Cannot rule out Anterior infarct, age undetermined Abnormal ECG
[2018-12-22] MEDS: Morphine 2 mg/ml ISec IVP PRN (20:26)
--- NOTE | 2018-12-22 22:56 | PN ---
DATE: 12/22/2018 SUBJECTIVE: The patient is seen sitting in chair on telemetry. He feels about the same. He continues to have exertional dyspnea. He has significant abdominal distention and peripheral edema. He was unable to tolerate spironolactone due to hyperkalemia. Current medications include oral Cipro, Eliquis 5 mg b.i.d., Flomax, Imdur 30 mg daily, digoxin 0.25 mg daily, Protonix 40 mg daily, Tenormin 50 mg daily. OBJECTIVE: GENERAL: He is an elderly man who appears chronically ill. VITAL SIGNS: Blood pressure is 92/66 with a pulse of 80 and in atrial fibrillation, respirations are 14. He is afebrile. He has had occasional pauses of 2.2 seconds which were asymptomatic, and his overall heart rate remains stable. HEENT: No JVD noted. CHEST: Few scattered rhonchi heard. HEART: PMI displaced laterally with irregularly irregular rhythm. ABDOMEN: Soft, protuberant with normoactive bowel sounds. EXTREMITIES: 3+ edema to his knees. DIAGNOSTIC DATA: Sodium is 128. Potassium 5.9, Kayexalate was administered. BUN and creatinine are 70 and 1.5. White count is 12.3, hemoglobin and hematocrit 14.8 and 41.8 with platelet count of 88,000. Bilirubin is 6.9 with direct bilirubin of 6.6. AST and ALT 405 and 219, alkaline phosphatase 1049. IMPRESSION: 1. Chronic atrial fibrillation with adequate heart rate control. Remains on anticoagulant therapy at the present time. 2. Stage IV lung cancer with hepatic metastasis. 3. Ascites with severe peripheral edema, likely noncardiac and sepsis predominantly due to liver disease and hypoalbuminemia. 4. Rest of problems as noted. RECOMMENDATIONS: His current cardiac medications should continue for now. Leg elevation and resumption of Lasix if tolerated is recommended. His overall prognosis poor and comfort care measures should be employed. I will be happy to see as needed. Shawn Arevalo MD
--- NOTE | 2018-12-22 23:13 | PN ---
DATE: 12/22/2018 SUBJECTIVE: The patient is seen sitting in bed. He is awake, he is alert. He reports that he is urinating very little. He has the urge to go but very little urine comes out. He also complains of lower extremity edema. He complains of shortness of breath. He complains of discomfort in the belly. PHYSICAL EXAMINATION GENERAL: Elderly male sitting in bed. Vital signs: Blood pressure 101/65, heart rate 72, respiratory rate 20 and temperature 97.4. HEENT: Normocephalic, atraumatic, positive pallor. NECK: Supple, no JVD. LUNGS: Bilateral equal air entry, bilateral equal expansion. CARDIAC: S1 and S2, regular rate and rhythm, no murmur, no rub. ABDOMEN: Distended, soft, nontender, bowel sounds present. EXTREMITIES: 3+ pitting edema of the lower extremities. INTAKE AND OUTPUT: 120/140. LABORATORY DATA: WBC 12, hemoglobin 14.8, hematocrit 41.8 and platelets 88. Sodium 128, potassium 5.9, chloride 95, CO2 of 16, anion gap 17, BUN 70, creatinine 1.5, glucose 118, calcium 9.9, total bili 6.9, AST 405, ALT 219, albumin 2.9 and globulin 2.2. Urinalysis; trace protein, trace ketones, nitrite positive, urobilinogen 2.0. Blood culture no growth. Urine culture no growth. MRCP done on the ; common bile duct is of normal caliber, no evidence of choledocholithiasis, no intrahepatic biliary ductal dilatation, cirrhosis of the liver, diffuse tumor involvement, kidneys unremarkable, marked thickening of the gallbladder wall but no evidence of common duct stones and massive adenopathy. CURRENT MEDICATIONS: Ciprofloxacin 250 every 12 hours starting today, Eliquis 5 b.i.d., Flomax 0.4, isosorbide 30, Digoxin 0.25 daily, Protonix, Tenormin, Tylenol, Kayexalate 30 g given this morning and meropenem 1 g every 8 hours started on the . ASSESSMENT: 1. Acute kidney injury. 2. Hyponatremia. 3. Hyperkalemia secondary to acute kidney injury. 4. Anion gap metabolic acidosis. 5. Stage IV lung cancer with diffuse lymph node metastases and liver metastases. 6. Worsening liver function tests. 7. Ascites, edema. PLAN: 1. Bladder scan. 2. Place [place] if residual urine volume greater than 200. 3. Lasix 40 mg IV push now and daily. 4. Monitor urine output. 5. Avoid use of Kayexalate. 6. Dose all antibiotics for creatinine clearance 30 mL/minute. 7. Avoid nephrotoxins. 8. Prognosis guarded. Shira Hurd MD
[2018-12-23] MEDS: Morphine 2 mg/ml ISec IVP PRN (06:01)
[2018-12-23 07:29] LABS: CALCIUM 10.1 mg/dL (8.4-10.5)
[2018-12-23] MEDS: Insulin Reg-LOW-Coverage SC SCH ×3 (07:30→16:37)
--- NOTE | 2018-12-23 08:19 | PCM.PCON ---
History of Present Illness - History of Present Illness History of Present Illness: Palliative consult requested by Dr Marla Pfeiffer Reason: Advance care planning This is an 78 year old male with history of high grade neuroendocrine small cell cancer of the lung, liver mass, CAD/NM , renal cyst, hepatitis C who presented with abdominal pain, difficulty urinating, and scrotal swelling. The pain originates and remains localized to the right and left lower quadrants. Pain is exacerbated when lying flat and is reduced when sitting upright. Also has o decreased appetite,difficulty urinating and abdominal distention. Denies nausea, vomiting, diarrhea, constipation, bright red blood per rectum, and change in stool caliber. Further denies fevers, chills, headache, visual/auditory changes, chest pain, SOB, and focal weakness. CT of abdomen:Tumor progression in liver, abnormal gall badder wall thickening gallstones lodged in neck of gall bladder neck,retroperitioneal mesenteric adenopathy, ansar[place]. CT of chest: trace pleural effusions,mall fabiola caridal effusions pleural manifestations of prior asbestos exposure Bladder scan:No evidence of urinary bladder wall thickening or calculi Nuclear body scan/HIDA: Normal hepato billiary scan,cystic duct patent MRCP: Cirrhosis extensive mesenteric adenopathy. Severe ascites. Marked thickening of gall bladder wall. 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 Live with spouse, Yary Alex. Family History: NM,CAD. Review of Systems - Constitutional Constitutional: Fatigue, Lethargy, Weakness - EENT Additional comments: negative - Breasts Additional comments: negative - Cardiovascular Additional comments: negative - Respiratory Additional comments: dyspnea on exertion - Gastrointestinal Gastrointestinal: Abdominal Pain, Bloating, Early Satiety - Genitourinary Genitourinary: Difficulty Urinating - Reproductive: Male Additional comments: scrotal swelling - Musculoskeletal Musculoskeletal: Muscle Weakness - Integumentary Additional comments: negative - Neurological Additional comments: negative - Endocrine Additional Comments: negative Physical Exam - Constitutional Appears: Chronically Ill Additional comments: Vital signs: 97.7, P 90, BP 96/60, R 18. - Eye Exam Eye Exam: Normal appearance, PERRL - ENT Exam ENT Exam: Mucous Membranes Moist, Normal Oropharynx - Respiratory Exam Respiratory Exam: Decreased Breath Sounds, NORMAL BREATHING PATTERN - Cardiovascular Exam Cardiovascular Exam: REGULAR RHYTHM, +S1, +S2 - GI/Abdominal Exam GI & Abdominal Exam: Distended, Firm, Tenderness - Rectal Exam Rectal Exam: Deferred - Exam External exam: Swelling - Extremities Exam Extremities exam: Positive for: pedal edema, pedal pulses present - Back Exam Back exam: NORMAL INSPECTION - Neurological Exam Neurological exam: Alert, Oriented x3 - Skin Skin Exam: Dry, Pallor, Warm - Additional Findings Additional findings: Palliative performance scale [facility] Palliative Care Assessment - Modified [facility] Dyspnea Scale Modified [facility] Dyspnea Scale: Too breathless to leave the house,or breathless dressing or undressing Grade: 5 - Pain Scale Pain Scale Used: Numeric - Pain Location Pain Location Body Site: Abdomen, Back - Tristan Scale Sensory Perception: Very Limited Moisture: Occasionally Moist Activity: Bedfast Mobility: Very Limited Nutrition: Probably Inadequate Friction & Shear: Problem Total Score - Skin Risk Assessment: 11 - Psychosocial Distress Patient screened for psychosocial distress: Yes Outcome: Referred to social welfare clerk - Goals Treatment Goal(s): Alleviate symptoms, Improve ADLs, Improve quality of life End of life care discussed: Yes - Plan Interdisciplinary involved: demurrage worker, Physician Assessment & Plan - Assessment and Plan (Free Text) Assessment: Patient is a 78 year old male with history of 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 Patient and , Yary have been updated of his medical condition by Dr Pfeiffer. I was asked to speak with Mr Alex and about goals of care and ad diggs care planing. I initially spoke with Yary alone. She stated she and her are coming to terms with the fact that prognosis is poor. She indicated that her had been very active and had relatively no complaints up until a week ago. She indicated that her is verbalizing about planning for" end of life. Yary stated that he has an Advanced Directive. She states her doesn't want aggressive resuscitation with CPR/intubation. When I met with he was very tired. I opened conversation about advance care planning. He acknowledged that this was something he needed to do but wasn't h up to it today. Psychosocial support provided Time spent in goals of care and advance careplanning with pait and family , 50 minutes
[2018-12-23] MEDS: Pantoprazole 40 mg EC Tab PO SCH (10:23)
--- NOTE | 2018-12-23 10:31 | CP.PCM.PN ---
<Jacoby Benson - Last Filed: 12/23/18 14:24> Subjective - Date & Time of Evaluation Date of Evaluation: 12/23/18 Time of Evaluation: 08:50 - Subjective Subjective: Infectious disease progress note: Patient seen and examined at bedside. No acute events overnight. Patient is still lethargic however denies any complaints. No other complaints. 12 point ROS performed and negative unless stated above. Objective - Vital Signs/Intake and Output Vital Signs (last 24 hours): Temp Pulse Resp BP Pulse Ox 97.1 F L 89 18 95/61 L 94 L 12/23/18 08:46 12/23/18 10:16 12/23/18 08:46 12/23/18 10:16 12/23/18 08:46 Intake and Output: 12/23/18 12/23/18 06:59 18:59 Intake Total 640 Output Total 200 Balance 440 - Medications Medications: Current Medications Acetaminophen (Tylenol 325mg Tab) 650 mg PO Q4 PRN PRN Reason: Pain, Mild (1-3) Last Admin: 12/18/18 20:11 Dose: 650 mg Apixaban (Eliquis) 5 mg PO BID [facility]; Protocol Last Admin: 12/23/18 10:15 Dose: 5 mg Atenolol (Tenormin) 50 mg PO DAILY [facility] Last Admin: 12/23/18 10:16 Dose: Not Given Ciprofloxacin (Cipro) 250 mg PO Q12 [facility]; Protocol Stop: 12/25/18 22:01 Last Admin: 12/23/18 10:17 Dose: 250 mg Digoxin (Lanoxin) 0.25 mg PO 1400 [facility] Last Admin: 12/22/18 15:04 Dose: 0.25 mg Albumin Human (Albumin Human 25% (25 Gm/100 Ml)) 100 mls @ 1 mls/min IVPB Q2H [facility] Stop: 12/23/18 17:39 Last Admin: 12/23/18 10:17 Dose: 1 mls/min Insulin Human Regular (Humulin R Low) 0 units SC ACHS [facility]; Protocol Last Admin: 12/22/18 21:52 Dose: Not Given Isosorbide Mononitrate (Imdur Er) 30 mg PO DAILY [facility] Last Admin: 12/23/18 10:15 Dose: Not Given Morphine Sulfate (Morphine) 2 mg IVP Q4H PRN PRN Reason: Pain, severe (8-10) Last Admin: 12/23/18 06:01 Dose: 2 mg Pantoprazole Sodium (Protonix Ec Tab) 40 mg PO DAILY [facility] Last Admin: 12/23/18 10:23 Dose: 40 mg Tamsulosin HCl (Flomax) 0.4 mg PO DAILY [facility] Last Admin: 12/23/18 10:15 Dose: 0.4 mg - Labs Labs: 12/22/18 07:15 12/23/18 07:00 PT 23.0 SECONDS (9.4-12.5) H 12/22/18 14:45 INR 2.07 12/22/18 14:45 APTT 28.6 Seconds (26.9-38.3) 12/19/18 05:15 - Constitutional Appears: No Acute Distress - Eye Exam Eye Exam: EOMI Pupil Exam: PERRL - ENT Exam ENT Exam: Mucous Membranes Moist - Respiratory Exam Respiratory Exam: Clear to Ausculation Bilateral. 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 fib on Eliquis Hyperlipidemia Hypertension BPH GERD Completed meropenem Day 6 Continue Cipro today day 2 of 3 days f/u labs including liver profile Follow-up septic work-up including blood and urine cultures Follow-up Oncology, surgery, Gastroenterology recommendations Continue to monitor for any changes Case and plan to be reviewed and discussed with Dr. Phan <Jose L Phan - Last Filed: 12/23/18 18:14> Objective - Vital Signs/Intake and Output Vital Signs (last 24 hours): Temp Pulse Resp BP Pulse Ox 97.2 F L 72 20 103/67 95 12/23/18 17:00 12/23/18 17:00 12/23/18 17:00 12/23/18 17:00 12/23/18 17:00 Intake and Output: 12/23/18 12/23/18 06:59 18:59 Intake Total 640 Output Total 200 Balance 440 - Medications Medications: Current Medications Acetaminophen (Tylenol 325mg Tab) 650 mg PO Q4 PRN PRN Reason: Pain, Mild (1-3) Last Admin: 12/18/18 20:11 Dose: 650 mg Apixaban (Eliquis) 5 mg PO BID [facility]; Protocol Last Admin: 12/23/18 10:15 Dose: 5 mg Atenolol (Tenormin) 50 mg PO DAILY [facility] Last Admin: 12/23/18 10:16 Dose: Not Given Ciprofloxacin (Cipro) 250 mg PO Q12 [facility]; Protocol Stop: 12/25/18 22:01 Last Admin: 12/23/18 10:17 Dose: 250 mg Digoxin (Lanoxin) 0.25 mg PO 1400 [facility] Last Admin: 12/23/18 15:15 Dose: 0.25 mg Insulin Human Regular (Humulin R Low) 0 units SC ACHS [facility]; Protocol Last Admin: 12/23/18 16:37 Dose: Not Given Isosorbide Mononitrate (Imdur Er) 30 mg PO DAILY [facility] Last Admin: 12/23/18 10:15 Dose: Not Given Morphine Sulfate (Morphine) 2 mg IVP Q4H PRN PRN Reason: Pain, severe (8-10) Last Admin: 12/23/18 06:01 Dose: 2 mg Pantoprazole Sodium (Protonix Ec Tab) 40 mg PO DAILY [facility] Last Admin: 12/23/18 10:23 Dose: 40 mg Tamsulosin HCl (Flomax) 0.4 mg PO DAILY [facility] Last Admin: 12/23/18 10:15 Dose: 0.4 mg - Labs Labs: 12/23/18 10:45 12/23/18 10:45 PT 18.8 SECONDS (9.4-12.5) H 12/23/18 10:45 INR 1.66 12/23/18 10:45 APTT 28.6 Seconds (26.9-38.3) 12/19/18 05:15 Attending/Attestation - Attestation I have personally seen and examined this patient.: Yes I have fully participated in the care of the patient.: Yes I have reviewed all pertinent clinical information, including history, physical exam and plan: Yes
[2018-12-23 11:01] LABS: HEMOGLOBIN 14.1 g/dL (14.0-18.0); LYMPH # 0.4 (1.2-3.4); LYMPH % 3.7 % (22.0-35.0); MEAN CELL VOLUME 94.1 fl (80.0-105.0); MEAN CORPUSCULAR HEMOGLOBIN 33.2 pg (25.0-35.0); MEAN CORPUSCULAR HGB CONC 35.3 g/dl (31.0-37.0); MEAN PLATELET VOLUME 9.9 fl (7.0-11.0); MONO # 0.9 (0.1-0.6); MONO % 7.3 % (1.0-6.0); PLATELET COUNT 72 10^3/uL (120.0-450.0); RBC 4.25 10^6/uL (3.5-6.1); RED CELL DISTRIBUTION WIDTH 16.7 % (11.5-14.5); WHITE BLOOD COUNT 11.7 10^3/uL (4.5-11.0)
[2018-12-23 11:07] LABS: ALB/GLOB RATIO 1.8 (1.1-1.8); ALBUMIN 3.4 g/dL (3.0-4.8); BILIRUBIN,DIRECT 7.5 mg/dL (0.0-0.4); CALCIUM 10.1 mg/dL (8.4-10.5)
[2018-12-23 11:17] LABS: INR 1.66; PROTHROMBIN TIME 18.8 SECONDS (9.4-12.5)
--- NOTE | 2018-12-23 11:30 | CP.PCM.PN ---
<David King - Last Filed: 12/23/18 11:18> Subjective - Date & Time of Evaluation Date of Evaluation: 12/23/18 Time of Evaluation: 11:18 - Subjective Subjective: David King Internal Medicine Resident- Progress Note on Behalf of Dr. Montes Subjective: Patient seen and examined at bedside. No acute events overnight. States abdominal pain is being controlled with morphine. As per family at bedside, he is more fatigued compared to last week. Tolerating diet. Denies nausea, vomiting, diarrhea, constipation, bright red blood per rectum, and change in stool caliber. Further denies fevers, chills, headache, visual/auditory changes, chest pain, SOB, and focal weakness. 12 point ROS negative except as indicated in HPI Physical Examination: - Constitutional Appears: Non-toxic, No Acute Distress - Head Exam Head Exam: ATRAUMATIC, NORMOCEPHALIC - Eye Exam Eye Exam: EOMI, Normal appearance, Scleral Icterus bilaterally - ENT Exam ENT Exam: Mucous Membranes Moist - Neck Exam Neck Exam: Full ROM - Respiratory Exam Respiratory Exam: Clear to Auscultation Bilateral, NORMAL BREATHING PATTERN Additional comments: Right chest wall port noted, no signs of infection of the surrounding soft tissues - Cardiovascular Exam Cardiovascular Exam: REGULAR RHYTHM, +S1, +S2 - GI/Abdominal Exam GI & Abdominal Exam: Soft. absent: Firm, Guarding, Rebound, Rigid - Extremities Exam Extremities Exam: no clubbing, no cyanosis, absent: Calf Tenderness - Neurological Exam Neurological Exam: Alert, Awake, Oriented x3 - Psychiatric Exam Psychiatric exam: Normal Affect, Normal Mood - Skin Skin Exam: Dry, Warm, Jaundice Imaging Reviewed: 12/17/18 Abdomen/Pelvis CT with oral and IV contrast: 1. Tumor progression in the liver. 2. New abdominal and pelvic ascites. 3. Abnormal gallbladder consisting of gallbladder wall thickening and gallstones which appear to be lodged in the gallbladder neck. The findings are suspicious for acute cholecystitis. 4. Residual retroperitoneal, mesenteric adenopathy. 5. New edema and anasarca. 12/17/[address] without contrast: 1. No acute findings related to/ accounting for the clinical presentation. 2. Trace pleural effusions. 3. Small pericardial effusion. 4. Pleural manifestations of prior asbestos exposure. 12/17/2018 Abdominal Ultrasound: Heterogeneous liver with the hepatic steatosis and/or other hepatic parenchymal pathology. A dominant the left hepatic lobe mass is noted-this has been present and referenced on prior PET-CT studies- neoplastic origin is inferred-recurrence is possible based on recent interval change referenced in most recent PET-CT study. Gallbladder is not particularly distended-the wall is thickened with pericholecystic fluid. Gallbladder wall edema present. Gallstones present. No positive ultrasound Avalos sign. Ascites probably in part contributing to the gallbladder wall thickening and pericholecystic fluid. No gross dilated ducts seen. Multiple bilateral renal cysts-no hydronephrosis. 12/18/2018 HIDA- Normal Hepatobiliary Scan. The cystic duct is patent. 12/19/2018 [facility]- Cirrhosis with extensive tumor involvement. Severe ascites. Marked thickening of the gallbladder wall. No evidence of common duct stone. 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 Ascities- SBP Gallbladder wall edema- likely secondary to low albumin state Cholelithiasis Elevated LFTs- increasing Elevated Total and direct bilirubin Neuroendocrine small cell cancer of the lung with liver mass GERD Hx of Hep C- resolved - increasing LFTs likely secondary to increased tumor burden - patient underwent paracentesis 12/18/2018- removed 2300mL pink, chylous fluid, cell count, cell cytology, albumin, LDH, total protein ordered and pending - administer albumin 100mg as ordered - continue soft diet - continue protonix 40mg PO daily - strict Is/Os - Urine electrolytes ordered and pending - repeat INR ordered and pending - call placed to lab to run cytology on paritoneal fluid- will follow up results - no indication for any endoscopic procedure at this time - pallative care consulted- appreciate recommendations Patient case discussed with and plan approved by attending physician, Dr. Montes. Objective - Vital Signs/Intake and Output Vital Signs (last 24 hours): Temp Pulse Resp BP Pulse Ox 97.1 F L 89 18 95/61 L 94 L 12/23/18 08:46 12/23/18 10:16 12/23/18 08:46 12/23/18 10:16 12/23/18 08:46 Intake and Output: 12/23/18 12/23/18 06:59 18:59 Intake Total 640 Output Total 200 Balance 440 - Medications Medications: Current Medications Acetaminophen (Tylenol 325mg Tab) 650 mg PO Q4 PRN PRN Reason: Pain, Mild (1-3) Last Admin: 12/18/18 20:11 Dose: 650 mg Apixaban (Eliquis) 5 mg PO BID [facility]; Protocol Last Admin: 12/23/18 10:15 Dose: 5 mg Atenolol (Tenormin) 50 mg PO DAILY [facility] Last Admin: 12/23/18 10:16 Dose: Not Given Ciprofloxacin (Cipro) 250 mg PO Q12 [facility]; Protocol Stop: 12/25/18 22:01 Last Admin: 12/23/18 10:17 Dose: 250 mg Digoxin (Lanoxin) 0.25 mg PO 1400 [facility] Last Admin: 12/22/18 15:04 Dose: 0.25 mg Albumin Human (Albumin Human 25% (25 Gm/100 Ml)) 100 mls @ 1 mls/min IVPB Q2H [facility] Stop: 12/23/18 17:39 Last Admin: 12/23/18 10:17 Dose: 1 mls/min Insulin Human Regular (Humulin R Low) 0 units SC ACHS [facility]; Protocol Last Admin: 12/22/18 21:52 Dose: Not Given Isosorbide Mononitrate (Imdur Er) 30 mg PO DAILY [facility] Last Admin: 12/23/18 10:15 Dose: Not Given Morphine Sulfate (Morphine) 2 mg IVP Q4H PRN PRN Reason: Pain, severe (8-10) Last Admin: 12/23/18 06:01 Dose: 2 mg Pantoprazole Sodium (Protonix Ec Tab) 40 mg PO DAILY [facility] Last Admin: 12/23/18 10:23 Dose: 40 mg Tamsulosin HCl (Flomax) 0.4 mg PO DAILY [facility] Last Admin: 12/23/18 10:15 Dose: 0.4 mg - Labs Labs: 12/23/18 10:45 12/23/18 10:45 PT 18.8 SECONDS (9.4-12.5) H 12/23/18 10:45 INR 1.66 12/23/18 10:45 APTT 28.6 Seconds (26.9-38.3) 12/19/18 05:15 <JyotiPatrickamira V - Last Filed: 12/23/18 19:58> Objective - Vital Signs/Intake and Output Vital Signs (last 24 hours): Temp Pulse Resp BP Pulse Ox 97.2 F L 72 20 103/67 95 12/23/18 17:00 12/23/18 17:00 12/23/18 17:00 12/23/18 17:00 12/23/18 17:00 Intake and Output: 12/23/18 12/24/18 18:59 06:59 Output Total 300 Balance -300 - Labs Labs: 12/23/18 10:45 12/23/18 10:45 PT 18.8 SECONDS (9.4-12.5) H 12/23/18 10:45 INR 1.66 12/23/18 10:45 APTT 28.6 Seconds (26.9-38.3) 12/19/18 05:15 Attending/Attestation - Attestation I have personally seen and examined this patient.: Yes I have fully participated in the care of the patient.: Yes I have reviewed all pertinent clinical information, including history, physical exam and plan: Yes Notes (Text): This patient was seen and evaluated along with the resident earlier. Worsening of the renal function. Patient still complains of abdominal discomfort. Continue IV albumin. Clinically SBP with a positive cell count in the ascitic fluid continue the antibiotics as per ID. Follow-up with LFTs. Significant metastatic liver disease. 12/23/18 19:57
[2018-12-23 11:42] LABS: LYMPHOCYTE 3 % (22.0-35.0); MONOCYTE 2 % (1.0-6.0); NEUTROPHIL 95 % (50.0-70.0); PLATELET ESTIMATE LOW (NORMAL)
[2018-12-23] MEDS ORDERED: Dextrose 50% SYRINGE Inj (50 ml) IVP ONE (12:00)
[2018-12-23] MEDS ORDERED: Insulin Regular 1 UNITS/0.01 ML ML SC ONE (12:00)
[2018-12-23] MEDS: DiphenhydrAMINE 50 mg/ml Inj IVP ONE ×2 (13:12→14:52)
[2018-12-23] MEDS: Digoxin 250 mcg (0.25 mg) Tab PO SCH (15:15)
[2018-12-23 15:16] VITALS: PULSE 87
[2018-12-23 15:58] VITALS: RESP 20
--- NOTE | 2018-12-23 16:06 | PN ---
DATE: 12/23/2018 SUBJECTIVE: The patient is currently seen sitting up in bed. He has declined in the last 48 hours. He is retaining more fluid. His urine output has remained low. He is currently off IV fluid hydration. His sodium level is once again falling. His BUN and creatinine are elevating significantly. His liver enzymes are worsening. He did have mild hyperkalemia in the latter part of the weekend and Aldactone was discontinued. Potassium today is 5.2, down from a high of 5.9. MEDICATIONS: Medication list reviewed. The patient is currently on Albumisol, Cipro, Eliquis, Flomax, insulin, Imdur, Lanoxin, morphine, Protonix, Tenormin and Tylenol. OBJECTIVE: INTAKE/OUTPUT: Intake is 640, output is 200. VITAL SIGNS: Blood pressure 95/61, temperature 97.1, pulse of 89 with a respiratory rate of 18 and a pulse ox of 94%. HEENT: Shows him to be normocephalic, atraumatic. Conjunctivae are pink. Sclerae are icteric. NECK: Supple. No neck vein distention. CHEST: Clear to auscultation and percussion. No rales, rhonchi or wheezing. CARDIOVASCULAR: Shows a regular rate and rhythm with no audible murmurs, rubs or gallops. ABDOMEN: Soft. Mildly distended. Positive ascites. Bowel sounds normal. No rebound. No guarding. EXTREMITIES: Show 1+ pitting edema bilaterally. LABORATORY DATA AND IMAGING: CBC, white blood cell count today is 11.7 with a hemoglobin of 14.1 and a platelet count of 72,000. Coags, PT 18.8 with an INR of 1.66. Chemistries show falling sodium down to 128, potassium 5.2 acceptable today, chloride 94 with a CO2 of 16. BUN is 85 and continues to elevate. Creatinine is 1.8, this has remained stable in the last 24 hours. Glucose is 128. Calcium is 10.1, albumin is 3.4. Bilirubin is down to 9.1. Liver enzymes continue to elevate. Alkaline phosphatase is 975. Microbiology, all cultures were negative. ASSESSMENT: 1. Acute renal failure, worsening. The patient remains oliguric. He is becoming more acidotic. He is trending toward hyperkalemia again. Aldactone had been discontinued. 2. 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 As per discussion with staff on 3R, no plans for any type of aggressive chemotherapy, plan is for comfort care. 3. History of hypertension. The patient remains borderline hypotensive. 4. Hyperkalemia worsening with worsening of his renal function. Aldactone was discontinued. 5. History of diabetes, controlled on sliding scale insulin. 6. History of arteriosclerotic heart disease, status post percutaneous transluminal coronary angioplasty and stent, stable. 7. History of atrial fibrillation. The patient remains on Eliquis. 8. History of ascites secondary to malignancy. The patient is currently off empiric antibiotics as the ascitic fluid cultures were negative. PLAN: 1. Discussion with staff on 3R. Plan is for comfort care at this point in time. The patient had been evaluated by palliative care with the possibility of a DNR/DNI and the possibility of hospice care. 2. I expect his renal parameters to worsen. 3. With the worsening liver parameters. The patient essentially has no working filters in his body. 4. Discussion with family and Dr. Pfeiffer to decide on the most appropriate reasonable approach for care for this patient. 5. From a renal standpoint, conservative management only. Tacho Alvarenga MD
[2018-12-23 17:01] VITALS: BP 103/67; PULSE 72; TEMP 97.2; O2SAT 95
--- NOTE | 2018-12-23 17:35 | PCM.PPROG ---
History of Present Illness - History of Present Illness History of Present Illness: Lethargy Physical Exam - Constitutional Appears: Chronically Ill - Eye Exam Eye Exam: PERRL, Scleral icterus - ENT Exam ENT Exam: Mucous Membranes Moist - Respiratory Exam Respiratory Exam: Decreased Breath Sounds, NORMAL BREATHING PATTERN - Cardiovascular Exam Cardiovascular Exam: REGULAR RHYTHM, +S1, +S2 - GI/Abdominal Exam GI & Abdominal Exam: Distended, Firm, Hypoactive Bowel Sounds - Extremities Exam Extremities exam: Positive for: pedal edema, pedal pulses present - Neurological Exam Neurological exam: Altered - Skin Skin Exam: Dry, Pallor Palliative Care Assessment - Modified MRC Dyspnea Scale Modified MRC Dyspnea Scale: Too breathless to leave the house,or breathless dressing or undressing Grade: 5 - Tristan Scale Sensory Perception: Very Limited Moisture: Occasionally Moist Activity: Bedfast Mobility: Completely Immobile Nutrition: Very Poor Friction & Shear: Problem Total Score - Skin Risk Assessment: 9 - Psychosocial Distress Patient screened for psychosocial distress: Yes Outcome: Referred to social sciences instructor - Goals Treatment Goal(s): Alleviate symptoms, Improve ADLs, Improve quality of life End of life care discussed: Yes - Plan Interdisciplinary involved: extension worker, Physician Discharge planning: Hospice ([facility]) Assessment & Plan - Assessment and Plan (Free Text) Assessment: 78 year old male with history of high grade 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 Family aware that prognosis is extremely poor. Family agreed to DNR/DNI. Family requesting that the patient be kept comfortable. Hospice care explained in detail. Questions answered> Family requesting e[facility]eb[facility] pait be evaluated for hospice services. Psychosocial support and end of life counseling provided Goals of care,advance care planning, end of life counselling 60 minutes Plan: Hospice evaluation End of life counseling DNR/DNI
--- NOTE | 2018-12-23 23:32 | CP.PCM.DIS ---
<Medardo Norris - Last Filed: 12/23/18 23:27> Provider - Provider Date of Admission: 12/17/18 19:02 Attending physician: Yasir Briones MD Primary care physician: Tram Pfeiffer MD Consults: 12/17/18 19:00 Gastroenterology Consult Routine Comment: Consulting Provider: Faye Montes V Consulting Physician: Faye Montes V Reason for Consult: ? acute cholecystitis General Surgery Consult Routine Comment: Consulting Provider: Ricardo Juarez Consulting Physician: Ricardo Juarez Reason for Consult: ? acute cholecystitis Infectious Disease Consult Routine Comment: Consulting Provider: Jose L Phan Consulting Physician: Jose L Phan Reason for Consult: ? acute cholecystitis 12/17/18 19:13 Consult [Physician Consult] Stat Comment: Consulting Provider: Bernard Barron Consulting Physician: Bernard Barron Reason for Consult: hepatic vein thrombosis eval please 12/17/18 19:52 Consult [Physician Consult] Routine Comment: Consulting Provider: Shira Hurd Consulting Physician: Shira Hurd Reason for Consult: electrolyte/fluid mgmt please 12/18/18 11:06 Physician Consult Routine Comment: Consulting Provider: Tay Fink Consulting Physician: Tay Fink Reason for Consult: ?liver mets; ?GB mets 12/19/18 11:38 Physician Consult Routine Comment: Consulting Provider: Shawn Arevalo Consulting Physician: Shawn Arevalo Reason for Consult: Blood pressure medication adjustment 12/22/18 11:49 Physician Consult Routine Comment: Consulting Provider: Maria R Johnson Consulting Physician: Maria R Johnson Reason for Consult: advanced directive 12/23/18 15:00 Nursing Referral for Wound Care Routine Comment: Physician Instructions: PLACE SCHULTE Reason For Exam: PT RETAINING URINE 12/23/18 17:02 Hospice [Case Management Referral] Routine Comment: Physician Instructions: Reason For Exam: Reason for Referral: Hospice Eval Time Spent in preparation of Discharge (in minutes): 45 Hospital Course - Lab Results Lab Results: Micro Results 12/18/18 19:15 Ascitic Fluid Gram Stain - Final 12/18/18 19:15 Ascitic Fluid Anaerobic Culture - Final NO ANAEROBES ISOLATED. 12/18/18 19:15 Ascitic Fluid Body Fluid Culture - Final No growth. 12/17/18 15:35 Blood Blood Culture - Final NO GROWTH AFTER 5 DAYS 12/17/18 15:35 Blood Gram Stain - Final TEST NOT PERFORMED 12/17/18 14:18 Blood Blood Culture - Final NO GROWTH AFTER 5 DAYS 12/17/18 14:18 Blood Gram Stain - Final TEST NOT PERFORMED 12/17/18 15:35 Urine Random Urine Culture - Final No Growth (<1,000 CFU/ML) Most Recent Lab Values WBC 11.7 10^3/uL (4.5-11.0) H 12/23/18 10:45 RBC 4.25 10^6/uL (3.5-6.1) 12/23/18 10:45 Hgb 14.1 g/dL (14.0-18.0) 12/23/18 10:45 Hct 40.0 % (42.0-52.0) L 12/23/18 10:45 MCV 94.1 fl (80.0-105.0) 12/23/18 10:45 MCH 33.2 pg (25.0-35.0) 12/23/18 10:45 MCHC 35.3 g/dl (31.0-37.0) 12/23/18 10:45 RDW 16.7 % (11.5-14.5) H 12/23/18 10:45 Plt Count 72 10^3/uL (120.0-450.0) L 12/23/18 10:45 MPV 9.9 fl (7.0-11.0) 12/23/18 10:45 Neut % (Auto) 89.0 % (50.0-68.0) H 12/23/18 10:45 Lymph % (Auto) 3.7 % (22.0-35.0) L 12/23/18 10:45 Prentiss % (Auto) 7.3 % (1.0-6.0) H 12/23/18 10:45 Eos % (Auto) 0.0 % (1.5-5.0) L 12/23/18 10:45 Baso % (Auto) 0.0 % (0.0-3.0) 12/23/18 10:45 Lymph # (Auto) 0.4 (1.2-3.4) L 12/23/18 10:45 Prentiss # (Auto) 0.9 (0.1-0.6) H 12/23/18 10:45 Eos # (Auto) 0.0 (0.0-0.7) 12/23/18 10:45 Baso # (Auto) 0.00 K/mm3 (0.0-2.0) 12/23/18 10:45 Absolute Neuts (auto) 10.37 (1.4-6.5) H 12/23/18 10:45 Neutrophils % (Manual) 95 % (50.0-70.0) H 12/23/18 10:45 Lymphocytes % (Manual) 3 % (22.0-35.0) L 12/23/18 10:45 Monocytes % (Manual) 2 % (1.0-6.0) 12/23/18 10:45 Platelet Evaluation Low (NORMAL) 12/23/18 10:45 PT 18.8 SECONDS (9.4-12.5) H 12/23/18 10:45 INR 1.66 12/23/18 10:45 APTT 28.6 Seconds (26.9-38.3) 12/19/18 05:15 pO2 29 mm/Hg (30-55) L 12/18/18 01:15 VBG pH 7.36 (7.32-7.43) 12/18/18 01:15 VBG pCO2 42.0 (40-60) 12/18/18 01:15 VBG HCO3 23.7 mmol/l (21-28) 12/18/18 01:15 VBG Total CO2 25.0 mmol.L (22-28) 12/18/18 01:15 VBG O2 Sat (Calc) 54.7 % (40-65) 12/18/18 01:15 VBG Base Excess -1.8 mmol/L (0.0-2.0) L 12/18/18 01:15 VBG Potassium 4.5 mmol/L (3.6-5.2) 12/18/18 01:15 Sodium 127.0 mmol/L (132-148) L 12/18/18 01:15 Chloride 95.0 mmol/L (98-107) L 12/18/18 01:15 Glucose 117 mg/dl (75-110) H 12/18/18 01:15 Lactate 3.7 mmol/L (0.7-2.1) H 12/18/18 01:15 FiO2 21.0 % 12/18/18 01:15 Crit Value Called To Erin evans rn 3rso 12/18/18 01:15 Crit Value Called By Sammi 12/18/18 01:15 Blood Gas Notified Time 200 12/18/18 01:15 Sodium 128 mmol/L (132-148) L 12/23/18 10:45 Potassium 5.2 mmol/L (3.6-5.0) H 12/23/18 10:45 Chloride 94 mmol/L (98-107) L 12/23/18 10:45 Carbon Dioxide 16 mmol/L (21-33) L 12/23/18 10:45 Anion Gap 23 (10-20) H 12/23/18 10:45 BUN 85 mg/dL (7-21) H 12/23/18 10:45 Creatinine 1.8 mg/dl (0.8-1.5) H 12/23/18 10:45 Est GFR ( Amer) 44 12/23/18 10:45 Est GFR (Non-Af Amer) 36 12/23/18 10:45 POC Glucose (mg/dL) 116 mg/dL (65-110) H 12/23/18 16:22 Random Glucose 99 mg/dL (70-110) 12/23/18 10:45 Uric Acid 8.1 mg/dL (3.5-8.5) 12/18/18 07:00 Calcium 10.1 mg/dL (8.4-10.5) 12/23/18 10:45 Phosphorus 3.8 mg/dL (2.5-4.5) 12/20/18 05:45 Magnesium 2.2 mg/dL (1.7-2.2) 12/20/18 05:45 Total Bilirubin 9.1 mg/dL (0.2-1.3) H 12/23/18 10:45 Direct Bilirubin 7.5 mg/dL (0.0-0.4) H 12/23/18 10:45 AST 434 U/L (17-59) H 12/23/18 10:45 ALT 221 U/L (7-56) H 12/23/18 10:45 Alkaline Phosphatase 975 U/L (38-126) H 12/23/18 10:45 Lactate Dehydrogenase 554 U/L (333-699) 12/17/18 14:18 Total Creatine Kinase 58 U/L (35-230) 12/17/18 14:18 Troponin I < 0.01 ng/mL 12/17/18 14:18 NT-Pro-B Natriuret Pep 1420 pg/mL (0-450) H 12/17/18 14:18 Total Protein 5.3 g/dL (5.8-8.3) L 12/23/18 10:45 Albumin 3.4 g/dL (3.0-4.8) 12/23/18 10:45 Globulin 1.9 gm/dL 12/23/18 10:45 Albumin/Globulin Ratio 1.8 (1.1-1.8) 12/23/18 10:45 Lipase 31 U/L (23-300) 12/17/18 14:18 Alpha Fetoprotein 82.9 ng/mL (0.0-7.5) H 12/20/18 21:45 Procalcitonin 0.12 NG/ML (0.19-0.49) L 12/17/18 19:20 Venous Blood Potassium 4.5 mmol/L (3.6-5.2) 12/18/18 01:15 Urine Color Dark yellow (YELLOW) 12/17/18 15:35 Urine Appearance Sl cloudy (CLEAR) 12/17/18 15:35 Urine pH 6.0 (4.7-8.0) 12/17/18 15:35 Ur Specific [place] 1.025 (1.005-1.035) 12/17/18 15:35 Urine Protein Trace mg/dL (<30 mg/dL) H 12/17/18 15:35 Urine Glucose (UA) Negative mg/dL (NEGATIVE) 12/17/18 15:35 Urine Ketones Trace mg/dL (NEGATIVE) H 12/17/18 15:35 Urine Blood Negative (NEGATIVE) 12/17/18 15:35 Urine Nitrate Positive (NEGATIVE) H 12/17/18 15:35 Urine Bilirubin Small (NEGATIVE) H 12/17/18 15:35 Urine Urobilinogen 2.0 E.U./dL (<1 E.U./dL) H 12/17/18 15:35 Ur Leukocyte Esterase Negative Jeet/uL (NEGATIVE) 12/17/18 15:35 Urine RBC None /hpf (0-2) 12/17/18 15:35 Urine WBC 5 - 10 /hpf (0-6) H 12/17/18 15:35 Ur Epithelial Cells 4 - 5 /hpf (0-5) 12/17/18 15:35 Urine Bacteria Few /hpf (NONE) 12/17/18 15:35 Urine Osmolality 773 mosm/kg (300-1000) 12/18/18 12:16 Ur Random Sodium < 5 meq/L 12/18/18 12:16 Urine Collection Time 24 HOURS 12/19/18 13:30 Urine Total Volume 400 mL (800-1400) L 12/19/18 13:30 Ur Sodium 24 Hour 2.0 meq/24HR (43-217) L 12/19/18 13:30 Fluid Source Peritoneal/ascites 12/18/18 19:15 Fluid Appearance Turbid (CLEAR) 12/18/18 19:15 Fluid WBC 737.0 /uL (0.0-300.0) H 12/18/18 19:15 Fluid RBC 95470.0 /uL (0.0-0.0) H 12/18/18 19:15 Fluid Tot Cell Count 100 (0-0) H 12/18/18 19:15 Fluid Mononuclear Cell 51.4 % (0-0) H 12/18/18 19:15 Fl Polymorphonucl Cell 48.6 % (0-0) H 12/18/18 19:15 Fluid Comment Light red 12/18/18 19:15 Digoxin 1.6 ng/mL (0.8-2.0) 12/18/18 07:00 Blood Type AB POSITIVE 12/22/18 17:10 Blood Type Confirm AB POSITIVE 12/22/18 17:31 Antibody Screen Negative 12/22/18 17:10 BBK History Checked No verified bt 12/22/18 17:10 - Hospital Course Hospital Course: 78 y/o M w/ PMHx of metastatic small cell lung cancer, Afib, HTN, CAD, [place] presented to the ED on 12/[address] 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 LFTs were trending upwards and patient was found to also have Hepatorenal Syndrome. THe decision for hospice was made after extensive discussion with the patient's , the patient, and the patient's children. All family members understood the patient's prognosis and agreed that comfort measures were the best option for the patient at this time. Dr. Montes, Dr. Barron, Dr. Phan, and Ms. Sarahi Johnson were all on consult and a multi-disciplinary approach was taken to the patient's care Discharge Exam - Head Exam Head Exam: ATRAUMATIC, NORMAL INSPECTION, NORMOCEPHALIC - Eye Exam Eye Exam: EOMI, Normal appearance, PERRL Pupil Exam: NORMAL ACCOMODATION, PERRL - Respiratory Exam Respiratory Exam: Clear to PA & Lateral, NORMAL BREATHING PATTERN, UNREMARKABLE - Cardiovascular Exam Cardiovascular Exam: REGULAR RHYTHM - GI/Abdominal Exam GI & Abdominal Exam: Normal Bowel Sounds - Extremities Exam Extremities exam: normal inspection - Back Exam Back exam: NORMAL INSPECTION - Neurological Exam Neurological exam: Alert, CN II-XII Intact, Normal Gait, Oriented x3, Reflexes Normal - Psychiatric Exam Psychiatric exam: Normal Affect, Normal Mood - Skin Skin Exam: Dry, Intact, Normal Color, Warm Discharge Plan - Follow Up Plan Condition: FAIR Disposition: HOSPICE - MEDICAL FACILITY Instructions: Palliative Care Referrals: Tram Pfeiffer MD [Primary Care Provider] - Maria R Johnson RN, ROLLER MAN [Staff Provider] - <Tram Pfeiffer - Last Filed: 12/24/18 16:12> Provider - Provider Date of Admission: 12/17/18 19:02 Attending physician: Yasir Briones MD Primary care physician: Tram Pfeiffer MD Consults: 12/17/18 19:00 Gastroenterology Consult Routine Comment: Consulting Provider: Faye Montes V Consulting Physician: Faye Montes V Reason for Consult: ? acute cholecystitis General Surgery Consult Routine Comment: Consulting Provider: Ricardo Juarez Consulting Physician: Ricardo Juarez Reason for Consult: ? acute cholecystitis Infectious Disease Consult Routine Comment: Consulting Provider: Jose L Phan Consulting Physician: Jose L Phan Reason for Consult: ? acute cholecystitis 12/17/18 19:13 Consult [Physician Consult] Stat Comment: Consulting Provider: Bernard Barron Consulting Physician: Bernard Barron Reason for Consult: hepatic vein thrombosis eval please 12/17/18 19:52 Consult [Physician Consult] Routine Comment: Consulting Provider: Shira Hurd Consulting Physician: Shira Hurd Reason for Consult: electrolyte/fluid mgmt please 12/18/18 11:06 Physician Consult Routine Comment: Consulting Provider: Tay Fink Consulting Physician: Tay Fink Reason for Consult: ?liver mets; ?GB mets 12/19/18 11:38 Physician Consult Routine Comment: Consulting Provider: Shawn Arevalo Consulting Physician: Shawn Arevalo Reason for Consult: Blood pressure medication adjustment 12/22/18 11:49 Physician Consult Routine Comment: Consulting Provider: Maria R Johnson Consulting Physician: Maria R Johnson Reason for Consult: advanced directive 12/23/18 15:00 Nursing Referral for Wound Care Routine Comment: Physician Instructions: PLACE SCHULTE Reason For Exam: PT RETAINING URINE 12/23/18 17:02 Hospice [Case Management Referral] Routine Comment: Physician Instructions: Reason For Exam: Reason for Referral: Hospice [facility] Hospital Course - Lab Results Lab Results: Micro Results 12/18/18 19:15 Ascitic Fluid Gram Stain - Final 12/18/18 19:15 Ascitic Fluid Anaerobic Culture - Final NO ANAEROBES ISOLATED. 12/18/18 19:15 Ascitic Fluid Body Fluid Culture - Final No growth. 12/17/18 15:35 Blood Blood Culture - Final NO GROWTH AFTER 5 DAYS 12/17/18 15:35 Blood Gram Stain - Final TEST NOT PERFORMED 12/17/18 14:18 Blood Blood Culture - Final NO GROWTH AFTER 5 DAYS 12/17/18 14:18 Blood Gram Stain - Final TEST NOT PERFORMED 12/17/18 15:35 Urine Random Urine Culture - Final No Growth (<1,000 CFU/ML) Most Recent Lab Values WBC 11.7 10^3/uL (4.5-11.0) H 12/23/18 10:45 RBC 4.25 10^6/uL (3.5-6.1) 12/23/18 10:45 Hgb 14.1 g/dL (14.0-18.0) 12/23/18 10:45 Hct 40.0 % (42.0-52.0) L 12/23/18 10:45 MCV 94.1 fl (80.0-105.0) 12/23/18 10:45 MCH 33.2 pg (25.0-35.0) 12/23/18 10:45 MCHC 35.3 g/dl (31.0-37.0) 12/23/18 10:45 RDW 16.7 % (11.5-14.5) H 12/23/18 10:45 Plt Count 72 10^3/uL (120.0-450.0) L 12/23/18 10:45 MPV 9.9 fl (7.0-11.0) 12/23/18 10:45 Neut % (Auto) 89.0 % (50.0-68.0) H 12/23/18 10:45 Lymph % (Auto) 3.7 % (22.0-35.0) L 12/23/18 10:45 Prentiss % (Auto) 7.3 % (1.0-6.0) H 12/23/18 10:45 Eos % (Auto) 0.0 % (1.5-5.0) L 12/23/18 10:45 Baso % (Auto) 0.0 % (0.0-3.0) 12/23/18 10:45 Lymph # (Auto) 0.4 (1.2-3.4) L 12/23/18 10:45 Prentiss # (Auto) 0.9 (0.1-0.6) H 12/23/18 10:45 Eos # (Auto) 0.0 (0.0-0.7) 12/23/18 10:45 Baso # (Auto) 0.00 K/mm3 (0.0-2.0) 12/23/18 10:45 Absolute Neuts (auto) 10.37 (1.4-6.5) H 12/23/18 10:45 Neutrophils % (Manual) 95 % (50.0-70.0) H 12/23/18 10:45 Lymphocytes % (Manual) 3 % (22.0-35.0) L 12/23/18 10:45 Monocytes % (Manual) 2 % (1.0-6.0) 12/23/18 10:45 Platelet Evaluation Low (NORMAL) 12/23/18 10:45 PT 18.8 SECONDS (9.4-12.5) H 12/23/18 10:45 INR 1.66 12/23/18 10:45 APTT 28.6 Seconds (26.9-38.3) 12/19/18 05:15 pO2 29 mm/Hg (30-55) L 12/18/18 01:15 VBG pH 7.36 (7.32-7.43) 12/18/18 01:15 VBG pCO2 42.0 (40-60) 12/18/18 01:15 VBG HCO3 23.7 mmol/l (21-28) 12/18/18 01:15 VBG Total CO2 25.0 mmol.L (22-28) 12/18/18 01:15 VBG O2 Sat (Calc) 54.7 % (40-65) 12/18/18 01:15 VBG Base Excess -1.8 mmol/L (0.0-2.0) L 12/18/18 01:15 VBG Potassium 4.5 mmol/L (3.6-5.2) 12/18/18 01:15 Sodium 127.0 mmol/L (132-148) L 12/18/18 01:15 Chloride 95.0 mmol/L (98-107) L 12/18/18 01:15 Glucose 117 mg/dl (75-110) H 12/18/18 01:15 Lactate 3.7 mmol/L (0.7-2.1) H 12/18/18 01:15 FiO2 21.0 % 12/18/18 01:15 Crit Value Called To Erin evans rn 3rso 12/18/18 01:15 Crit Value Called By Sammi 12/18/18 01:15 Blood Gas Notified Time 200 12/18/18 01:15 Sodium 128 mmol/L (132-148) L 12/23/18 10:45 Potassium 5.2 mmol/L (3.6-5.0) H 12/23/18 10:45 Chloride 94 mmol/L (98-107) L 12/23/18 10:45 Carbon Dioxide 16 mmol/L (21-33) L 12/23/18 10:45 Anion Gap 23 (10-20) H 12/23/18 10:45 BUN 85 mg/dL (7-21) H 12/23/18 10:45 Creatinine 1.8 mg/dl (0.8-1.5) H 12/23/18 10:45 Est GFR ( Amer) 44 12/23/18 10:45 Est GFR (Non-Af Amer) 36 12/23/18 10:45 POC Glucose (mg/dL) 116 mg/dL (65-110) H 12/23/18 16:22 Random Glucose 99 mg/dL (70-110) 12/23/18 10:45 Uric Acid 8.1 mg/dL (3.5-8.5) 12/18/18 07:00 Calcium 10.1 mg/dL (8.4-10.5) 12/23/18 10:45 Phosphorus 3.8 mg/dL (2.5-4.5) 12/20/18 05:45 Magnesium 2.2 mg/dL (1.7-2.2) 12/20/18 05:45 Total Bilirubin 9.1 mg/dL (0.2-1.3) H 12/23/18 10:45 Direct Bilirubin 7.5 mg/dL (0.0-0.4) H 12/23/18 10:45 AST 434 U/L (17-59) H 12/23/18 10:45 ALT 221 U/L (7-56) H 12/23/18 10:45 Alkaline Phosphatase 975 U/L (38-126) H 12/23/18 10:45 Lactate Dehydrogenase 554 U/L (333-699) 12/17/18 14:18 Total Creatine Kinase 58 U/L (35-230) 12/17/18 14:18 Troponin I < 0.01 ng/mL 12/17/18 14:18 NT-Pro-B Natriuret Pep 1420 pg/mL (0-450) H 12/17/18 14:18 Total Protein 5.3 g/dL (5.8-8.3) L 12/23/18 10:45 Albumin 3.4 g/dL (3.0-4.8) 12/23/18 10:45 Globulin 1.9 gm/dL 12/23/18 10:45 Albumin/Globulin Ratio 1.8 (1.1-1.8) 12/23/18 10:45 Lipase 31 U/L (23-300) 12/17/18 14:18 Alpha Fetoprotein 82.9 ng/mL (0.0-7.5) H 12/20/18 21:45 Procalcitonin 0.12 NG/ML (0.19-0.49) L 12/17/18 19:20 Venous Blood Potassium 4.5 mmol/L (3.6-5.2) 12/18/18 01:15 Urine Color Dark yellow (YELLOW) 12/17/18 15:35 Urine Appearance Sl cloudy (CLEAR) 12/17/18 15:35 Urine pH 6.0 (4.7-8.0) 12/17/18 15:35 Ur Specific [place] 1.025 (1.005-1.035) 12/17/18 15:35 Urine Protein Trace mg/dL (<30 mg/dL) H 12/17/18 15:35 Urine Glucose (UA) Negative mg/dL (NEGATIVE) 12/17/18 15:35 Urine Ketones Trace mg/dL (NEGATIVE) H 12/17/18 15:35 Urine Blood Negative (NEGATIVE) 12/17/18 15:35 Urine Nitrate Positive (NEGATIVE) H 12/17/18 15:35 Urine Bilirubin Small (NEGATIVE) H 12/17/18 15:35 Urine Urobilinogen 2.0 E.U./dL (<1 E.U./dL) H 12/17/18 15:35 Ur Leukocyte Esterase Negative Jeet/uL (NEGATIVE) 12/17/18 15:35 Urine RBC None /hpf (0-2) 12/17/18 15:35 Urine WBC 5 - 10 /hpf (0-6) H 12/17/18 15:35 Ur Epithelial Cells 4 - 5 /hpf (0-5) 12/17/18 15:35 Urine Bacteria Few /hpf (NONE) 12/17/18 15:35 Urine Osmolality 773 mosm/kg (300-1000) 12/18/18 12:16 Ur Random Sodium < 5 meq/L 12/18/18 12:16 Urine Collection Time 24 HOURS 12/19/18 13:30 Urine Total Volume 400 mL (800-1400) L 12/19/18 13:30 Ur Sodium 24 Hour 2.0 meq/24HR (43-217) L 12/19/18 13:30 Fluid Source Peritoneal/ascites 12/18/18 19:15 Fluid Appearance Turbid (CLEAR) 12/18/18 19:15 Fluid WBC 737.0 /uL (0.0-300.0) H 12/18/18 19:15 Fluid RBC 94706.0 /uL (0.0-0.0) H 12/18/18 19:15 Fluid Tot Cell Count 100 (0-0) H 12/18/18 19:15 Fluid Mononuclear Cell 51.4 % (0-0) H 12/18/18 19:15 Fl Polymorphonucl Cell 48.6 % (0-0) H 12/18/18 19:15 Fluid Comment Light red 12/18/18 19:15 Digoxin 1.6 ng/mL (0.8-2.0) 12/18/18 07:00 Blood Type AB POSITIVE 12/22/18 17:10 Blood Type Confirm AB POSITIVE 12/22/18 17:31 Antibody Screen Negative 12/22/18 17:10 BBK History Checked No verified bt 12/22/18 17:10 Attending/Attestation - Attestation I have personally seen and examined this patient.: Yes I have fully participated in the care of the patient.: Yes I have reviewed all pertinent clinical information, including history, physical exam and plan: Yes
== END 2018-12-23 18:28 | disposition hospice, inpatient (51) | DRG 435 ==
LOC: ED 13:52 → ERH 19:02 → 3RSO 21:03
PROVIDERS: ADMIT Family Medicine; ATTEND Family Medicine
PROC: 0W9G3ZX Drainage of Peritoneal Cavity, Percutaneous Approach, Diagnostic (ICD-10-PCS; principal; 2018-12-18 15:45)
PROC: 30233K1 Transfusion of Nonautologous Frozen Plasma into Peripheral Vein, Percutaneous Approach (ICD-10-PCS; 2018-12-23)
DX: C78.7 Secondary malignant neoplasm of liver and intrahepatic bile duct (principal); K65.2 Spontaneous bacterial peritonitis; K76.7 Hepatorenal syndrome; K80.00 Calculus of gallbladder with acute cholecystitis without obstruction; C34.90 Malignant neoplasm of unspecified part of unspecified bronchus or lung; E87.1 Hypo-osmolality and hyponatremia; B19.10 Unspecified viral hepatitis B without hepatic coma; I31.3 Pericardial effusion (noninflammatory); C77.9 Secondary and unspecified malignant neoplasm of lymph node, unspecified; N17.9 Acute kidney failure, unspecified; R18.8 Other ascites; E87.2 Acidosis; C7A.8 Other malignant neuroendocrine tumors; N50.89 Other specified disorders of the male genital organs; N40.0 Benign prostatic hyperplasia without lower urinary tract symptoms; E11.9 Type 2 diabetes mellitus without complications; I48.2 Chronic atrial fibrillation; K21.9 Gastro-esophageal reflux disease without esophagitis; E87.5 Hyperkalemia; I25.10 Atherosclerotic heart disease of native coronary artery without angina pectoris; R16.0 Hepatomegaly, not elsewhere classified; E78.5 Hyperlipidemia, unspecified; Z77.090 Contact with and (suspected) exposure to asbestos; I10 Essential (primary) hypertension; K74.60 Unspecified cirrhosis of liver; Z51.5 Encounter for palliative care; Z79.01 Long term (current) use of anticoagulants; Z87.891 Personal history of nicotine dependence; I25.2 Old myocardial infarction; Z86.73 Personal history of transient ischemic attack (TIA), and cerebral infarction without residual deficits; Z95.5 Presence of coronary angioplasty implant and graft; Z79.4 Long term (current) use of insulin; Z86.19 Personal history of other infectious and parasitic diseases

== ENCOUNTER 2018-12-23 18:31 | Inpatient (IN) | payer OTHER ==
[2018-12-23 15:16] VITALS: PULSE 87
[2018-12-23] MEDS ORDERED: Morphine PCA 1 mg/ml (30ml) 30 ML IV PRN (18:35)
[2018-12-23 18:36] VITALS: BMI 29.5
[2018-12-23] MEDS ORDERED: DiphenhydrAMINE 50 mg/ml Inj IVP PRN (18:39)
[2018-12-23 18:57] VITALS: RESP 20
[2018-12-24 08:38] VITALS: BP 83/62; PULSE 95; TEMP 97.6
--- NOTE | 2018-12-24 13:47 | PCM.PPROG ---
History of Present Illness - History of Present Illness History of Present Illness: lethargic, rouses when name is called Physical Exam - Constitutional Appears: Chronically Ill - Eye Exam Eye Exam: PERRL, Scleral icterus - ENT Exam ENT Exam: Mucous Membranes Moist - Respiratory Exam Respiratory Exam: Decreased Breath Sounds, Rhonchi, NORMAL BREATHING PATTERN - Cardiovascular Exam Cardiovascular Exam: REGULAR RHYTHM, +S1 - GI/Abdominal Exam GI & Abdominal Exam: Distended, Firm, Hyperactive Bowel Sounds - Exam Additional comments: oliguria - Neurological Exam Neurological exam: Altered - Skin Skin Exam: Dry, Pallor Palliative Care Assessment - Pain Description Intensity of pain at present: 5 Pain Behavior: Moaning, Restlessness, VS Changes Alleviating Factors/Management Techniques: Medication, Position Change - Tristan Scale Sensory Perception: Completely Limited Moisture: Occasionally Moist Activity: Bedfast Mobility: Completely Immobile Nutrition: Very Poor Friction & Shear: Problem Total Score - Skin Risk Assessment: 8 - Psychosocial Distress Patient screened for psychosocial distress: Yes Palliative Care - Goals Treatment Goal(s): Alleviate symptoms, Improve quality of life End of life care discussed: Yes - Plan Interdisciplinary involved: Nurse, housekeeping laundry worker, manager ambulatory, Physician Discharge planning: Hospice (GIP) Assessment & Plan - Assessment and Plan (Free Text) Assessment: 78 year old male with history of 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 Goals of care and end of life counseling provided, 30 minutes Plan: Morphine 1 mg/hr continuos infusion Scopolamine transdermal patch, Benadryl IVP as needed for upper airway congestion Ativan as need for restlessness Tylenol 650mg RC for fever over 100 F
--- NOTE | 2018-12-24 19:21 | CP.PCM.PN ---
Subjective - Date & Time of Evaluation Date of Evaluation: 12/24/18 Time of Evaluation: 17:15 - Subjective Subjective: patient passed Objective - Vital Signs/Intake and Output Vital Signs (last 24 hours): Temp Pulse Resp BP Pulse Ox 97.6 F 95 H 20 83/62 L 12/24/18 06:00 12/24/18 06:00 12/24/18 06:00 12/24/18 06:00 - Medications Medications: Current Medications Acetaminophen (Tylenol 650 Mg Supp) 650 mg RC Q4H PRN PRN Reason: Fever >100.4 F Diphenhydramine HCl (Benadryl) 50 mg IVP Q8H PRN PRN Reason: upper airway secretions Morphine Sulfate (Morphine Hop Weigher 1 Mg/Ml) 30 mls @ 1 mls/hr IV PRN PRN; Protocol PRN Reason: TOOL COORDINATOR PER MD ORDER Last Admin: 12/23/18 19:21 Dose: 1 mg/hr, 1 mls/hr Lorazepam (Ativan) 0.5 mg IVP Q6H PRN; Protocol PRN Reason: Anxiety Last Admin: 12/24/18 16:21 Dose: 0.5 mg Scopolamine (Transderm-Scop) 1 patch TD Q3D GERDA Last Admin: 12/23/18 19:41 Dose: 1 patch - Constitutional Appears: Other (pale, cachetic; mouth agape) - Eye Exam Additional comments: eyes fixed and dilated - Respiratory Exam Additional comments: no audible breath sounds - Cardiovascular Exam Additional comments: no heart beat - GI/Abdominal Exam Additional comments: no bowel sounds Assessment and Plan - Assessment and Plan (Free Text) Assessment: Patient with metastatic neuroendocrine cancer currently on hospice. Patient pronounced at 7:15pm. Family at bedside. Patient comfortable prior to .
== END 2018-12-24 19:15 | DRG 951 ==
LOC: 3RSO 18:31
PROVIDERS: ADMIT Family Medicine; ATTEND Family Medicine
DX: Z51.5 Encounter for palliative care (principal); K76.7 Hepatorenal syndrome; C34.90 Malignant neoplasm of unspecified part of unspecified bronchus or lung; C78.7 Secondary malignant neoplasm of liver and intrahepatic bile duct; R18.8 Other ascites; Z66 Do not resuscitate; I25.10 Atherosclerotic heart disease of native coronary artery without angina pectoris; I10 Essential (primary) hypertension; B19.20 Unspecified viral hepatitis C without hepatic coma; N28.1 Cyst of kidney, acquired; I48.91 Unspecified atrial fibrillation; N40.0 Benign prostatic hyperplasia without lower urinary tract symptoms; N50.89 Other specified disorders of the male genital organs; K21.9 Gastro-esophageal reflux disease without esophagitis; E78.5 Hyperlipidemia, unspecified; Z86.73 Personal history of transient ischemic attack (TIA), and cerebral infarction without residual deficits; I25.2 Old myocardial infarction